=== PATIENT | female | born 1995 | race Caucasian/White ===

== ENCOUNTER 2017-12-03 14:09 | Outpatient (CLI) | payer BC, SELFPAY ==
[2017-12-03 14:20] VITALS: BMI 21.2
[2017-12-03 14:40] VITALS: BP 119/60; PULSE 102; RESP 18; TEMP 36.9
[2017-12-03 14:56] LABS: Basophils % 0.4 % (0.1-2.0); Eosinophils # 0.1 K/mm3 (0.0-0.4); Eosinophils % 1.2 % (0.1-12.0); Hematocrit 43.8 % (37.0-47.0); Hemoglobin 15.1 g/dL (12.2-16.2); Lymphocytes # 1.9 K/mm3 (0.7-4.5); Lymphocytes % 17.2 K/mm3 (10-50); Mean Corpuscular HGB Conc 34.4 g/dL (31.8-35.4); Mean Corpuscular Hemoglobin 31.7 pg (27.0-31.2); Mean Platelet Volume 7.2 fl (7.4-10.4); Monocytes # 0.5 K/mm3 (0.1-1.0); Monocytes % 4.4 % (1.7-9.3); Neutrophils # 8.5 K/mm3 (1.8-7.8); Neutrophils % 76.8 % (37.0-80.0); Platelet Count 301 K/mm3 (142-424); Red Blood Count 4.76 M/mm3 (4.20-5.40)
[2017-12-03 15:10] VITALS: BP 110/58; PULSE 89; RESP 18
[2017-12-03 15:25] LABS: Alanine Aminotransferase 15 U/L (12-78); Albumin Level 3.5 gm/dL (3.4-5.0); Albumin/Globulin Ratio 0.7 (1.1-1.8); Alkaline Phosphatase 90 U/L (46-116); Anion Gap 16.5 mEq/L (5-15); Aspartate Amino Transferase 17 U/L (15-37); Bilirubin,Total 0.4 mg/dL (0.2-1.0); Blood Urea Nitrogen 17 mg/dL (7-18); Calcium 9.9 mg/dL (8.5-10.1); Carbon Dioxide 26 mmol/L (21.0-32.0); Chloride 102 mmol/L (98-107); Creatinine Clearance Estimated 85 mL/min (0-300); Creatinine,Serum 0.94 mg/dL (0.55-1.02); Estimated Glomerular Filt Rate 74 ml/min (>60); GFR (African American) 89 ML/MIN (>60); Globulin 4.7 gm/dl (1.3-3.2); Glucose 73 mg/dL (74-106); Potassium 4.5 mmoL/L (3.5-5.1); Sodium 140 mmol/L (136-145); Total Protein,Serum 8.2 gm/dL (6.4-8.2)
[2017-12-03 15:40] VITALS: BP 109/46; PULSE 85; RESP 18
[2017-12-03 16:00] VITALS: BP 112/54; PULSE 85; RESP 18
== END 2017-12-03 16:10 | disposition home or self-care (01) ==
PROVIDERS: PCP Nurse Practitioner Family; Visit Provider Nurse Practitioner Family
DX: R11.2 Nausea with vomiting, unspecified (principal)
CPT/HCPCS: 80053; 85025; 96360; 96374

== ENCOUNTER → 2019-06-27 08:25 | Outpatient (POV) | payer BC, SELFPAY | PROVIDERS: Visit Provider Dermatology | DX: Z00.00 Encounter for general adult medical examination without abnormal findings (principal) ==

== ENCOUNTER → 2020-03-16 08:49 | Outpatient (CLI) | payer BC, SELFPAY | PROVIDERS: PCP Nurse Practitioner Family; Visit Provider Nurse Practitioner Family | DX: R19.7 Diarrhea, unspecified (principal) ==

== ENCOUNTER → 2020-03-16 09:10 | Outpatient (CLI) | payer BC, SELFPAY ==
[2020-03-16 09:14] LABS: Adenovirus F 40/41, stool Not Detected (NotDetected); Astrovirus Not Detected (NotDetected); Campylobacter Not Detected (NotDetected); Cryptosporidium Not Detected (NotDetected); Cyclospora Cayetanesis Not Detected (NotDetected); Entamoeba histolytica Not Detected (NotDetected); Enteroaggregative E coli Not Detected (NotDetected); Enteropathogenic E coli Not Detected (NotDetected); Enterotoxigenic E coli Not Detected (NotDetected); Giardia lamblia Not Detected (NotDetected); Norovirus Not Detected (NotDetected); Plesimonas Shigalloides, PCR Not Detected (NotDetected); Rotavirus A Not Detected (NotDetected); Salmonella, PCR Not Detected (NotDetected); Sapovirus Not Detected (NotDetected); Shiga-like toxin E coli Not Detected (NotDetected); Shigella Enterovasive E coli Not Detected (NotDetected); Vibrio Cholerae Not Detected (NotDetected); Vibrio, PCR Not Detected (NotDetected); Yersinia Entercolitica, PCR Not Detected (NotDetected)
[2020-03-16 12:54] LABS: Clostridium Difficile A/B, PCR Detected (NotDetected)
[2020-03-17 17:29] LABS: H. pylori Breath Test Negative (Negative)
== END ==
PROVIDERS: Visit Provider Nurse Practitioner Family
DX: R19.7 Diarrhea, unspecified (principal); A04.72 Enterocolitis due to Clostridium difficile, not specified as recurrent
CPT/HCPCS: 83013; 87507

== ENCOUNTER → 2021-10-13 14:37 | Outpatient (CLI) | payer OTHER, SELFPAY ==
[2021-10-15 07:12] LABS: HIV Screen 4th Generation wRfx Non Reactive (Non Reactive); HSV 2 IgG, Type Spec <0.91 index (0.00-0.90); Hep A Ab, IgM Negative (Negative); Hepatitis B Core Antibody IgM Negative (Negative); Hepatitis B Surface Antigen Negative (Negative); Hepatitis C Antibody <0.1 s/co ratio (0.0-0.9)
[2021-10-15 09:14] LABS: Rapid Plasma Reagin Ab Titer Non Reactive (NonRea<1:1)
[2021-10-15 21:19] LABS: Neisseria gonorrhoeae, NAA Negative (Negative)
== END ==
PROVIDERS: Visit Provider Nurse Practitioner Obstetrics & Gynecology
DX: N89.8 Other specified noninflammatory disorders of vagina (principal); N94.9 Unspecified condition associated with female genital organs and menstrual cycle; Z72.51 High risk heterosexual behavior
CPT/HCPCS: 36415; 80074; 86592; 86695; 86703; 86790; 87491; 87591; G0432

== ENCOUNTER → 2021-10-13 16:15 | Outpatient (CLI) | payer OTHER, SELFPAY | PROVIDERS: Visit Provider Nurse Practitioner Obstetrics & Gynecology | DX: F41.9 Anxiety disorder, unspecified (principal) ==

== ENCOUNTER → 2021-10-28 22:29 | Outpatient (CLI) | payer OTHER, SELFPAY ==
--- NOTE | 2021-10-28 22:32 | CT_ITS ---
PROCEDURE INFORMATION: Exam: CT Head Without Contrast Exam date and time: 10/28/2021 10:32 PM Age: 26 years old Clinical indication: Pain; Headache not specified; Additional info: Head pain TECHNIQUE: Imaging protocol: Computed tomography of the head without contrast. Radiation optimization: All CT scans at this facility use at least one of these dose optimization techniques: automated exposure control; mA and/or kV adjustment per patient size (includes targeted exams where dose is matched to clinical indication); or iterative reconstruction. COMPARISON: No relevant prior studies available. FINDINGS: Brain: Normal. No hemorrhage. Unremarkable white matter. No mass effect. Cerebral ventricles: No ventriculomegaly. Paranasal sinuses: Visualized sinuses are unremarkable. No fluid levels. Mastoid air cells: Visualized mastoid air cells are well aerated. Bones/joints: Unremarkable. No acute fracture. Soft tissues: Unremarkable. IMPRESSION: No acute intracranial abnormality.
== END ==
PROVIDERS: PCP Nurse Practitioner Family; Visit Provider Nurse Practitioner Family
DX: R51.9 Headache, unspecified (principal)
CPT/HCPCS: 70450

== ENCOUNTER 2024-07-10 13:50 | Outpatient (CLI) | payer OTHER, SELFPAY ==
[2024-07-10 15:42] LABS: HCG,Quantitative 6166 mIU/ml (0-5.42)
[2024-07-11 09:16] LABS: Progesterone 22.9 ng/mL (.)
== END 2024-07-10 23:59 | disposition home or self-care (01) ==
LOC: LAB 13:52
PROVIDERS: PCP Nurse Practitioner Family; Visit Provider Obstetrics & Gynecology
DX: Z32.00 Encounter for pregnancy test, result unknown (principal)
CPT/HCPCS: 36415; 84144; 84702

== ENCOUNTER 2024-08-01 13:43 | Outpatient (CLI) | payer OTHER, SELFPAY ==
--- NOTE | 2024-08-01 13:44 | US_ITS ---
PROCEDURE: US OB <= 14 WEEKS FETUS CLINICAL INDICATION: spotting during /dates COMPARISON: No exams were available for comparison FINDINGS: Transvaginal sonographic images of the pelvis were obtained. From her last menstrual period she is 7weeks 5days. An intrauterine gestational sac is present with a pole with a crown-rump length of 1.71cm This correlates to a gestational age of 8weeks 2days. ABILIO 03/11/2025 from this ultrasound heart tones are present with an FHR of 165bpm. Yolk sac is noted. The yolk sac measures 4.3mm. There is a small collection of fluid anterior to the chorion that may represent subchorionic hemorrhage. The right ovary is seen and appears normal. The left ovary is seen and appears normal. There is no fluid in the cul-de-sac. IMPRESSION: 1. Embryo within the uterine cavity with heart activity seen. 2. There is a small fluid collection anterior to the chorion that may represent a subchorionic hemorrhage. 3. Embryo measures 8 weeks and 2 days and ABILIO will be 03/11/2025 from this ultrasound. 4. Both ovaries are seen and appear normal. 5. No fluid in the cul-de-sac. Dictated by: Kana King MD 08/02/2024 12:45 Kana King MD in [facility] 08/02/2024 12:45
== END 2024-08-01 23:59 | disposition home or self-care (01) ==
LOC: RAD 13:44
PROVIDERS: PCP Nurse Practitioner Family; Visit Provider Obstetrics & Gynecology
DX: Z34.90 Encounter for supervision of normal pregnancy, unspecified, unspecified trimester (principal)
CPT/HCPCS: 76801

== ENCOUNTER 2024-08-11 12:05 | Outpatient (CLI) | payer OTHER, SELFPAY ==
[2024-08-11 12:53] LABS: Basophils # 0.1 K/mm3 (0-0.2); Basophils % 0.5 % (0.1-2.0); Eosinophils # 0.2 K/mm3 (0.0-0.4); Eosinophils % 1.6 % (0.1-12.0); Hematocrit 39.5 % (37.0-47.0); Hemoglobin 13.5 g/dL (12.2-16.2); Lymphocytes # 1.9 K/mm3 (0.7-4.5); Lymphocytes % 17.8 % (10-50); Mean Corpuscular HGB Conc 34.2 g/dL (31.8-35.4); Mean Corpuscular Hemoglobin 31.5 pg (27.0-31.2); Mean Corpuscular Volume 92.3 fl (81-99); Mean Platelet Volume 9.2 fl (7.4-10.4); Monocytes # 0.6 K/mm3 (0.1-1.0); Monocytes % 5.9 % (1.7-9.3); Neutrophils # 8.1 K/mm3 (1.8-7.8); Neutrophils % 73.9 % (37.0-80.0); Platelet Count 332 K/mm3 (142-424); Red Blood Count 4.28 M/mm3 (4.20-5.40); Red Cell Distribution Width 11.7 % (11.5-17.5); White Blood Count 10.9 K/mm3 (4.8-10.8)
[2024-08-11 14:32] LABS: HIV Combo NEGATIVE (Negative)
[2024-08-11 14:40] LABS: Hepatitis C Ab Qual. W/ RFX NEGATIVE (Negative)
[2024-08-11 14:51] LABS: RPR W/RFX Titers Nonreactive (Nonreactive)
[2024-08-12 07:13] LABS: Hepatitis B Surface Antigen Negative (Negative)
[2024-08-12 08:12] LABS: Rubella Antibodies, IgG 1.24 index (Immune >0.99)
[2024-08-14 06:09] LABS: Neisseria gonorrhoeae, NAA Negative (Negative)
== END 2024-08-11 23:59 | disposition home or self-care (01) ==
LOC: LAB 12:06
PROVIDERS: PCP Nurse Practitioner Family; Visit Provider Obstetrics & Gynecology
DX: Z34.81 Encounter for supervision of other normal pregnancy, first trimester (principal)
CPT/HCPCS: 36415; 85025; 86592; 86762; 86803; 86850; 87086; 87088; 87186; 87340; 87389; 87491; 87591

== ENCOUNTER 2024-10-27 08:56 | Outpatient (CLI) | payer OTHER, SELFPAY ==
--- NOTE | 2024-10-27 08:58 | US_ITS ---
PROCEDURE: US OB /MATERNAL DETAIL CLINICAL INDICATION: screening for malformation COMPARISON: US US OB <= 14 WEEKS FETUS from 08/01/2024 FINDINGS: Transabdominal sonographic images of the pelvis were obtained. From her established due date she is 20 weeks 1 day. Single viable intrauterine gestation. Cephalic position. Placenta: Posteriorplacenta grade 1. There is an average amount of fluid. The cervix appears satisfactory. Closed and measuring 4.36 cm in length. Complete survey performed and was unremarkable on the submitted images as in PACS. No discrete anomalies identified on survey imaging by technologist. Active fetus. Three-vessel cord with satisfactory umbilical cord insertion. 4- chamber heart noted. Situs, aortic arch, LVOT, RVOT, three-vessel view appear normal. Survey of brain & ventricles Unremarkable. Not well visualized due to position today. Face and neck survey unremarkable. Profile, nasion, lips and nose appeared normal. Diaphragm and chest views unremarkable. Abdomen: Both kidneys noted and unremarkable. Stomach and bladder noted and satisfactory. Spine: Survey of the spine satisfactory with no anomalies identified nor imaged. Cervical, thoracic, lower spine appear normal. Both arms and legs noted. Amniotic Fluid: Adequate. MVP 2.12 cm. Measurements: Average ultrasound age 20weeks 2days. Estimated due date by ultrasound age 0803/14/2025. Estimated weight 352g BPD = 20weeks 1day HC = 20weeks 0 days AC = 21weeks 1day FL = 19weeks 6days Growth Percentile= 61 Heart Rate = 140bpm Humerus = 19weeks 5days HC/AC is 1.09 FL/BPD is 0.68 FL/AC is 0.2 IMPRESSION: 1. Viable fetus in the cephalic presentation with posterior placenta grade 1. 2. The fluid is within normal limits with an MVP 2.12 cm. 3. The complete head anatomy was not well visualized due to position today. Suggest repeat scan in 2-3 weeks to look at the brain anatomy. 4. The rest of the anatomical scan appear normal. 5. biometry is consistent with the dates. Dictated by: Kana King MD 10/27/2024 16:57 Kana King MD in [facility] 10/27/2024 16:57
== END 2024-10-27 23:59 | disposition home or self-care (01) ==
LOC: RAD 08:56
PROVIDERS: PCP Nurse Practitioner Family; Visit Provider Obstetrics & Gynecology
DX: Z36.3 Encounter for antenatal screening for malformations (principal); Z3A.20 20 weeks gestation of pregnancy
CPT/HCPCS: 76811

== ENCOUNTER 2024-11-17 13:23 | Outpatient (CLI) | payer OTHER, SELFPAY ==
--- NOTE | 2024-11-17 13:45 | US_ITS ---
PROCEDURE: US OB FOLLOW UP CLINICAL INDICATION: f/u for extra views after anatomy scan COMPARISON: US US OB <= 14 WEEKS FETUS from 08/01/2024 US US OB /MATERNAL DETAIL from 10/27/2024 FINDINGS: Transabdominal sonographic images of the pelvis were obtained. The following parameters are obtained: From her established due date she is 23weeks 1day Viable fetus in the cephalic presentation with a posterior placenta grade 1. The cervix measures 2.84 cm heart rate: 150bpm bpm. BPD: 22weeks 5days HC: 23weeks 3days AC: 22weeks 4days FL: 23weeks 3days HC/AC: 1.21 FL/BPD: 0.75 FL/AC: 0.23 Growth percentile: Amniotic fluid: Appears normal. No obvious anomalies evident. Stomach, bladder, kidneys, three-vessel cord, four chamber heart appear normal. head: Thalamus, choroid plexus, cerebellum, cisterna magna appear normal. IMPRESSION: 1. Viable fetus in the cephalic presentation with a posterior placenta grade 1. 2. Subjectively the fluid is within normal limits. 3. The head anatomy today appears normal. 4. The rest of the limited anatomical scan appears normal. 5. biometry is consistent with the dates. Dictated by: Kana King MD 11/17/2024 20:34 Kana King MD in [facility] 11/17/2024 20:34
== END 2024-11-17 23:59 | disposition home or self-care (01) ==
LOC: RAD 13:24
PROVIDERS: PCP Nurse Practitioner Family; Visit Provider Obstetrics & Gynecology
DX: Z36.3 Encounter for antenatal screening for malformations (principal); Z3A.23 23 weeks gestation of pregnancy
CPT/HCPCS: 76816

== ENCOUNTER 2024-12-18 09:31 | Outpatient (CLI) | payer OTHER, SELFPAY ==
[2024-12-18 11:11] LABS: Basophils # 0.1 K/mm3 (0-0.2); Basophils % 0.6 % (0.1-2.0); Eosinophils # 0.2 Kmm3 (0.0-0.4); Eosinophils % 1.7 % (0.1-12.0); Hematocrit 37.4 % (37.0-47.0); Hemoglobin 12.6 g/dL (12.2-16.2); Immature Granulocytes # 0.04 10^3uL; Immature Granulocytes % 0.5 %; Lymphocytes # 1.3 K/mm3 (0.7-4.5); Lymphocytes % 15.3 % (10-50); Mean Corpuscular HGB Conc 33.7 g/dL (31.8-35.4); Mean Corpuscular Hemoglobin 31.7 pg (27.0-31.2); Mean Platelet Volume 9.1 fl (7.4-10.4); Monocytes # 0.6 K/mm3 (0.1-1.0); Monocytes % 7.3 % (1.7-9.3); Neutrophils # 6.5 K/mm3 (1.8-7.8); Neutrophils % 74.6 % (37.0-80.0); Nucleated Red Blood Cells # 0 10^3/uL; Nucleated Red Blood Cells % 0 %; Platelet Count 307 K/mm3 (142-424); Red Blood Count 3.98 M/mm3 (4.20-5.40); Red Cell Distribution Width 11.9 % (11.5-17.5); Red Cell Distribution Width-SD 40.7 fL; White Blood Count 8.7 K/mm3 (4.8-10.8)
[2024-12-18 11:22] LABS: Glucose 1 Hour 109 mg/dL (74-100)
[2024-12-18 16:35] LABS: RPR W/RFX Titers Nonreactive (Nonreactive)
== END 2024-12-18 23:59 | disposition home or self-care (01) ==
LOC: LAB 09:32
PROVIDERS: PCP Nurse Practitioner Family; Visit Provider Obstetrics & Gynecology
DX: Z34.92 Encounter for supervision of normal pregnancy, unspecified, second trimester (principal); Z3A.27 27 weeks gestation of pregnancy
CPT/HCPCS: 36415; 82947; 85025; 86592

== ENCOUNTER 2025-01-17 13:18 | Outpatient (CLI) | payer OTHER, SELFPAY ==
--- OUTSIDE RECORDS SUMMARY | 2025-01-17 13:24 | XMS_ITS | Clinical Summary ---
Author Organization [facility] Address [address] [place] [address] Care Team Providers Care Apprentice Cosmetologist Name Role Phone Pcp, No Primary Care Provider Unavailabl e Allergies Active Allergy Reactions Criticality Noted Date Comments Penicillins Rash Low 07/24/2020 Medications buPROPion (Wellbutrin) 75 MG tablet 11/20/2021 Active Active Problems Problem Noted Date Diagnosed Date Pelvic and perineal pain 11/20/2021 Overview (11/20/2021): Normal pelvic exam today Recommend soak and seals. If symptoms do not improve can try vaginal estrogen or steroids. Counseled on vaginal dryness or dermatitis with changes in detergent, clothing or pads. Assessment & Plan (11/20/2021 3:02 PM EDT): Normal pelvic exam today, most of symptoms seem to be external Recommend soak and seals. If symptoms do not improve can try vaginal estrogen or steroids. Counseled on vaginal dryness or dermatitis with changes in detergent, clothing or pads. Resolved Problems Problem Noted Date Diagnosed Date Resolved Date Vaginal dryness 11/20/2021 11/20/2021 Overview (11/20/2021): She reports intermittent numbness from rectum to bilateral LEs in the setting of pelvic exam WNL. Recommend vaginal lubrication and follow-up if sx persist and can discuss topical estrogen or steroids for vaginal dermatitis Counseled on vaginal dryness or dermatitis with changes in detergent, clothing or pads. Immunizations Immunization Administration Dates Next Due DTP-Hib-Hep B 10/04/1995 DTaP 10/03/1998 MMR 10/03/1998,10/04/1995 OPV Bivalent - Non-US 10/03/1998 Social History Tobacco Use Types Packs/Day Years Used Date Smoking Tobacco: Never Smokeless Tobacco: Never Alcohol Use Standard Drinks/Week Comments Never 0 (1 standard drink = 0.6 oz pur e alcohol) Comments Unknown Sex and Gender Information Value Date Recorded Sex Assigned at Not on file Legal Sex Female 1:42 PM EDT Gender Identity Not on file Sexual Orientation Not on file Last Filed Vital Signs Vital Sign Reading Time Taken Comments Blood Pressure 158/110 11/20/2021 10:10 AM EDT Pulse 120 11/20/2021 10:10 AM EDT Temperature - - Respiratory Rate - - Oxygen Saturation - - Inhaled Oxygen Concentration - - Weight 68.6 kg (151 lb 4.8 oz) 11/20/2021 10:10 AM EDT Height 165.1 cm (5' 5 ) 11/20/2021 10:10 AM EDT Body Mass Index 25.18 11/20/2021 10:10 AM EDT Plan of Treatment Health Maintenance Due Date Last Done Comments [facility]-Depression Screening 1994 [facility]-Infant/Child/Adol SDOH Screenings 1994 [facility]-Hepatitis B Vaccines (2 of 3 - 3-dose series) 11/01/1995 10/04/1995 [facility]-Varicella Vaccines (1 of 2 - 13+ 2-dose series) 2007 HPV Vaccines (1 - 3-dose series) 2009 [facility]- SDOH Screenings 2012 [facility]-Adult SDOH Screenings 2012 [facility]-DTaP,Tdap,and Td Vaccines (3 - Tdap) 2013 10/03/1998, 10/04/1995 [facility]-Pap Smear 2015 [id number] Vaccine (3 - 2023- season) 2024 08/04/2021, 2021 [facility]-Cervical Cancer Screening 2024 [facility]-HPV/Cotest 2024 [facility]-Influenza Vaccine (Season Ended) 2025 [facility]-Zoster Vaccines (1 of 2) 2044 [facility]-HIB Vaccines Completed 10/04/1995 [facility]-IPV Vaccines Aged Out 10/03/1998 No longer e ligible based on patient's age to complete this topic [facility]-Hepatitis A Vaccines Aged Out No longer eligible based on patient's age to complete this topic [facility]-Pneumococcal Vaccine: Pediatrics (0 to 5 Years) and At-Risk Patients (6 to 49 Years) Aged Out No longer eligible b ased on patient's age to complete this topic [facility]-Rotavirus Vaccines Aged Out No lo nger eligible based on patient's age to complete this topic Insurance Care Teams Apprentice Cosmetologist Relationship Specialty Start Date End Date [address] [place] [address] PCP - General Family Medicine 11/20/21
--- NOTE | 2025-01-17 13:45 | US_ITS ---
PROCEDURE: US OB BIOPHYSICAL PROFILE CLINICAL INDICATION: SGA COMPARISON: US US OB <= 14 WEEKS FETUS from 08/01/2024 US US OB /MATERNAL DETAIL from 10/27/2024 US US OB FOLLOW UP from 11/17/2024 FINDINGS: Transabdominal sonographic images of the uterus were obtained. From her established due date she is 31weeks 6days. The following parameters are obtained: Viable Fetus in the cephalic presentation with a posterior placenta grade 2. Average ultrasound age is 30weeks 5days Estimated weight 1,549g Cervix measures 3.35 cm Average ultrasound age 30 weeks 5 days Estimated weight 1549 grams, 3 lb 7 oz Measurements: heart Rate = 158bpm BPD = 30weeks 6days, 15 percentile HC = 31weeks 3days, 7 percentile AC = 30weeks 6days 18 percentile FL = 29weeks 2days, <2 percentile HC/AC is 1.07 FL/BPD is 0.72 FL/AC is 0.21 6 percentile Amniotic fluid index: 11.94cm, MVP 4.0 cm Qualitative AFV:2 Breathing movements: 2 Gross Body Movements: 2 Tone: 2 Biophysical profile score: 8 Doppler evaluation of the umbilical artery: SD ratio: 2.36-2.95-normal Resistive index: 0.66 No obvious anomalies evident.Kidneys, profile, stomach, bladder, four-chamber heart, three-vessel cord appear normal. IMPRESSION: 1. Viable fetus in the cephalic presentation with a posterior placenta grade 2. 2. The fluid is within normal limits with an amniotic fluid index 11.94, MVP 4.0 cm. 3. Biophysical profile is 8/8 with good breathing movement and movement seen. 4. SD ratio is normal 2.36-2.95. 5. Fetus is currently small for gestational age measuring 6th percentile. The abdominal circumference however is 18th percentile. 6. Limited anatomical scan appears normal. Dictated by: Kana King MD 01/17/2025 15:05 Kana King MD in [facility] 01/17/2025 15:05
== END 2025-01-17 23:59 | disposition home or self-care (01) ==
LOC: RAD 13:18
PROVIDERS: PCP Nurse Practitioner Family; Visit Provider Obstetrics & Gynecology
DX: O36.5930 Maternal care for other known or suspected poor fetal growth, third trimester, not applicable or unspecified (principal); Z3A.31 31 weeks gestation of pregnancy
CPT/HCPCS: 76816; 76819; 76820

== ENCOUNTER 2025-01-23 13:16 | Outpatient (CLI) | payer OTHER, SELFPAY ==
--- OUTSIDE RECORDS SUMMARY | 2025-01-23 13:21 | XMS_ITS | Clinical Summary ---
Author Organization [facility] Address [address] [place] [address] Care Team Providers Care Deputy Coroner Investigator Name Role Phone Pcp, No Primary Care [...] Tdap) 2013 10/03/1998, 10/04/1995 [facility]-Pap Smear 2015 [id number] Vaccine (3 - 2023- season) 2024 08/04/2021, [...] to complete this topic Insurance Care Teams Deputy Coroner Investigator Relationship Specialty Start Date End Date [address] [address] PCP - General Family Medicine 11/20/21
--- NOTE | 2025-01-23 13:45 | US_ITS ---
PROCEDURE: US OB BIOPHYSICAL PROFILE CLINICAL INDICATION: BPP for SGA COMPARISON: US US OB <= 14 WEEKS FETUS from 08/01/2024 US US OB /MATERNAL DETAIL from 10/27/2024 US US OB FOLLOW UP from 11/17/2024 US US OB BIOPHYSICAL PROFILE from 01/17/2025 FINDINGS: Transabdominal sonographic images of the uterus were obtained. From her established due date she is 32weeks 5days. The following parameters are obtained: Viable Fetus in the cephalic presentation with a posterior placenta grade 2. The cervix measures 3.05 cm Measurements: heart Rate = 147bpm Amniotic fluid index: 14.64cm, MVP 4.11 cm Qualitative AFV:2 Breathing movements: 2 Gross Body Movements: 2 Tone: 2 Biophysical profile score: 8 No obvious anomalies evident.Kidneys, profile, stomach, bladder, four-chamber heart, three-vessel cord appear normal. IMPRESSION: 1. Viable fetus in the cephalic presentation with a posterior placenta grade 2. 2. The fluid is within normal limits with an amniotic fluid index 14.64 cm, MVP 4.11 cm 3. Biophysical profile is 8/8 with good breathing movement and movement seen. 4. Limited anatomical scan appears normal. Dictated by: Kana King MD 01/24/2025 01:23 Kana King MD in [facility] 01/24/2025 01:23
== END 2025-01-23 23:59 | disposition home or self-care (01) ==
LOC: RAD 13:17
PROVIDERS: PCP Nurse Practitioner Family; Visit Provider Obstetrics & Gynecology
DX: O36.5930 Maternal care for other known or suspected poor fetal growth, third trimester, not applicable or unspecified (principal); Z3A.32 32 weeks gestation of pregnancy
CPT/HCPCS: 76819

== ENCOUNTER 2025-01-29 08:36 | Outpatient (CLI) | payer OTHER, SELFPAY ==
--- OUTSIDE RECORDS SUMMARY | 2025-01-29 08:38 | XMS_ITS | Clinical Summary ---
Author Organization [facility] Address [address] [place] [address] Care Team Providers Care Tire Finisher Name Role Phone Pcp, No Primary Care [...] Tdap) 2013 10/03/1998, 10/04/1995 [facility]-Pap Smear 2015 [id number] Vaccine (3 - 2023- season) 2024 08/04/2021, [...] to complete this topic Insurance Care Teams Tire Finisher Relationship Specialty Start Date End Date [address] [address] PCP - General Family Medicine 11/20/21
[2025-01-29 08:40] VITALS: BMI 28.6
[2025-01-29 08:54] VITALS: BP 145/83; PULSE 75; RESP 16; TEMP 37.1; O2SAT 98; BMI 28.6
[2025-01-29 09:17] VITALS: BP 136/86
== END 2025-01-29 09:19 | disposition home or self-care (01) ==
LOC: OBOUT 08:37 → OB 08:38
PROVIDERS: PCP Nurse Practitioner Family; Visit Provider Obstetrics & Gynecology
DX: O36.5930 Maternal care for other known or suspected poor fetal growth, third trimester, not applicable or unspecified (principal); Z3A.33 33 weeks gestation of pregnancy
CPT/HCPCS: 59025

== ENCOUNTER 2025-02-03 09:50 | Outpatient (CLI) | payer OTHER, SELFPAY ==
--- OUTSIDE RECORDS SUMMARY | 2025-02-03 09:53 | XMS_ITS | Clinical Summary ---
Author Organization [facility] Address [address] [place] [address] Care Team Providers Care Marine Services Technician Name Role Phone Pcp, No Primary Care [...] Date Last Done Comments [facility]-Depression Screening 1994 [facility]-/Child/Adol SDOH Screenings 1994 [facility]-Hepatitis B Vaccines (2 of 3 - 3-dose series) 11/01/1995 10/04/1995 [facility]-Varicella Vaccines (1 of 2 - 13+ 2-dose series) 2007 HPV Vaccines (1 - 3-dose series) 2009 [facility]- SDOH Screenings 2012 [facility]-Adult SDOH Screenings 2012 [facility]-DTaP,Tdap,and Td Vaccines (3 - Tdap) 2013 10/03/1998, 10/04/1995 [facility]-Pap Smear 2015 [facility]-PWVSE-21 Vaccine (3 - 2023- season) 2024 08/04/2021, 2021 [facility]-Cervical Cancer Screening 2024 [facility]-HPV/Cotest 2024 [facility]-Influenza Vaccine (#1) 2025 [facility]-Zoster Vaccines (1 of 2) 2044 [...] to complete this topic Insurance Care Teams Marine Services Technician Relationship Specialty Start Date End Date [address] [place] [address] PCP - General Family Medicine 11/20/21
[2025-02-03 10:05] VITALS: BP 153/78; PULSE 69; RESP 18; TEMP 36.4; O2SAT 97; BMI 28.8
== END 2025-02-03 10:43 | disposition home or self-care (01) ==
LOC: OBOUT 09:52 → OB 09:53
PROVIDERS: PCP Nurse Practitioner Family
DX: Z34.03 Encounter for supervision of normal first pregnancy, third trimester (principal); Z3A.34 34 weeks gestation of pregnancy
CPT/HCPCS: 59025; 99212; G0463

== ENCOUNTER 2025-02-09 13:32 | Outpatient (CLI) | payer OTHER, SELFPAY ==
--- OUTSIDE RECORDS SUMMARY | 2025-02-09 13:35 | XMS_ITS | Clinical Summary ---
Author Organization [facility] Address [address] [place] [address] Care Team Providers Care Supervisor Marble Name Role Phone Pcp, No Primary Care [...] Tdap) 2013 10/03/1998, 10/04/1995 [facility]-Pap Smear 2015 [facility]-SNGVA-35 Vaccine (3 - 2023- season) 2024 08/04/2021, [...] to complete this topic Insurance Care Teams Supervisor Marble Relationship Specialty Start Date End Date [address] [place] [address] PCP - General Family Medicine 11/20/21
--- NOTE | 2025-02-09 13:45 | US_ITS ---
PROCEDURE: US OB BIOPHYSICAL PROFILE CLINICAL INDICATION: Needs for Asymmetric IUGR and SGA COMPARISON: US US OB <= 14 WEEKS FETUS from 08/01/2024 US US OB /MATERNAL DETAIL from 10/27/2024 US OB FOLLOW UP from 11/17/2024 US OB BIOPHYSICAL PROFILE from 01/17/2025 US OB BIOPHYSICAL PROFILE from 01/23/2025 FINDINGS: Transabdominal sonographic images of the uterus were obtained. From her established due date she is 35 weeks 1 day The following parameters are obtained: Viable Fetus in the cephalic presentation with a posterior placenta grade 2. Cervix measures 2.65 cm Measurements: heart Rate = 135bpm Amniotic fluid index: 10.81cm, MVP 4.25 cm Qualitative AFV:2 Breathing movements: 2 Gross Body Movements: 2 Tone: 2 Biophysical profile score: 8 No obvious anomalies evident.Kidneys, bladder, stomach, four-chamber heart, three-vessel cord appear normal. IMPRESSION: 1. Viable fetus in the cephalic presentation with a posterior placenta grade 2. 2. The fluid is within normal limits with an an amniotic fluid index 10.81 cm, MVP 4.25 cm. 3. Biophysical profile is 8/8 with good breathing movement and movement seen. 4. Limited anatomical scan appears normal. Dictated by: Kana King MD 02/10/2025 08:42 Kana King MD in OV 02/10/2025 08:42
== END 2025-02-09 23:59 | disposition home or self-care (01) ==
LOC: RAD 13:32
PROVIDERS: PCP Nurse Practitioner Family; Visit Provider Obstetrics & Gynecology
DX: O36.5930 Maternal care for other known or suspected poor fetal growth, third trimester, not applicable or unspecified (principal); Z3A.35 35 weeks gestation of pregnancy
CPT/HCPCS: 76819; 86403

== ENCOUNTER 2025-02-09 15:27 | Outpatient (CLI) | payer OTHER, SELFPAY ==
--- OUTSIDE RECORDS SUMMARY | 2025-02-09 15:29 | XMS_ITS | Clinical Summary ---
Author Organization [facility] Address [address] [place] [address] Care Team Providers Care Crinkling Machine Operator Name Role Phone Pcp, No Primary Care [...] Tdap) 2013 10/03/1998, 10/04/1995 UKY-Pap Smear 2015 [id number] Vaccine (3 - 2023- season) 2024 08/04/2021, [...] to complete this topic Insurance Care Teams Crinkling Machine Operator Relationship Specialty Start Date End Date Crystal [place] [address] PCP - General Family Medicine 11/20/21
[2025-02-09 15:47] LABS: Hematocrit 36.1 % (37.0-47.0); Hemoglobin 12.2 g/dL (12.2-16.2); Immature Granulocytes % 0.3 %; Mean Corpuscular HGB Conc 33.8 g/dL (31.8-35.4); Mean Corpuscular Hemoglobin 30.9 pg (27.0-31.2); Mean Corpuscular Volume 91.4 fl (81-99); Nucleated Red Blood Cells % 0 %; Platelet Count 294 K/mm3 (142-424); Red Blood Count 3.95 M/mm3 (4.20-5.40); Red Cell Distribution Width-SD 39.8 fL; White Blood Count 8.7 K/mm3 (4.8-10.8)
[2025-02-09 16:21] LABS: Alanine Aminotransferase 16 U/L (12-78); Albumin Level 3.2 g/dl (3.5-5.0); Albumin/Globulin Ratio 1.2 (1.1-1.8); Alkaline Phosphatase 146 U/L (38-126); Anion Gap 12.3 mEq/L (5-15); Aspartate Amino Transferase 25 U/L (14-36); Bilirubin,Total 0.3 mg/dl (0.2-1.3); Blood Urea Nitrogen 19 mg/dl (7-17); Calcium 9.4 mg/dl (8.4-10.2); Carbon Dioxide 25 mmol/L (22.0-30.0); Chloride 102 mmol/L (98-107); Creatinine,Serum 0.80 mg/dl (0.52-1.04); Estimated Glomerular Filt Rate 84 ml/min (>60); GFR (African American) 102 ML/MIN (>60); Globulin 2.6 g/dL (1.3-3.2); Glucose 90 mg/dl (74-100); Potassium 4.3 mmoL/L (3.5-5.1); Sodium 135 mmol/L (136-145); Total Protein,Serum 5.8 g/dl (6.3-8.2); Uric Acid 5.0 mg/dl (2.5-6.2)
== END 2025-02-09 23:59 | disposition home or self-care (01) ==
LOC: LAB 15:27
PROVIDERS: PCP Nurse Practitioner Family; Visit Provider Obstetrics & Gynecology
DX: O13.9 Gestational [pregnancy-induced] hypertension without significant proteinuria, unspecified trimester (principal); O36.5990 Maternal care for other known or suspected poor fetal growth, unspecified trimester, not applicable or unspecified
CPT/HCPCS: 36415; 80053; 82570; 84156; 84550; 85025

== ENCOUNTER 2025-02-15 08:30 | Outpatient (CLI) | payer OTHER, SELFPAY ==
--- OUTSIDE RECORDS SUMMARY | 2025-02-15 08:31 | XMS_ITS | Clinical Summary ---
Author Organization [facility] Address [address] [place] [address] Care Team Providers Care Bookkeepers Supervisor Name Role Phone Pcp, No Primary Care [...] Tdap) 2013 10/03/1998, 10/04/1995 UKY-Pap Smear 2015 [id number] Vaccine (3 - 2023- season) 2024 08/04/2021, [...] to complete this topic Insurance Care Teams Bookkeepers Supervisor Relationship Specialty Start Date End Date [place] [address] PCP - General Family Medicine 11/20/21
--- NOTE | 2025-02-15 08:45 | US_ITS ---
PROCEDURE: US OB BIOPHYSICAL PROFILE CLINICAL INDICATION: Needs for Asymmetric IUGR and SGA COMPARISON: US US OB /MATERNAL DETAIL from 10/27/2024 US US OB FOLLOW UP from 11/17/2024 US US OB BIOPHYSICAL PROFILE from 01/17/2025 US OB BIOPHYSICAL PROFILE from 01/23/2025 US OB BIOPHYSICAL PROFILE from 02/09/2025 FINDINGS: Transabdominal sonographic images of the uterus were obtained. From her established due date she is 36weeks 0 days. The following parameters are obtained: Viable Fetus in the cephalic presentation with a posterior placenta grade 2. Average ultrasound age is 34weeks 0 days Estimated weight 2,181g, 4 lb 13 oz Measurements: heart Rate = 149bpm BPD = 34weeks 6days, 24 percentile OFD = 31weeks 0 days, <10 percentile HC = 34weeks 6days, 5 percentile AC = 33weeks 1day, <2 percentile FL = 33weeks 1day, 2 percentile HC/AC is 1.07 Cephalic Index is 0.86 FL/BPD is 0.74 FL/AC is 0.22 4 percentile Amniotic fluid index: 11.34cm, MVP 3.80 cm Qualitative AFV:2 Breathing movements: 2 Gross Body Movements: 2 Tone: 2 Biophysical profile score: 8 Doppler evaluation of the umbilical artery: SD ratio: 2.54-3.30 Resistive index: 0.61 No obvious anomalies evident.Kidneys, profile, bladder, stomach, four-chamber heart, three-vessel cord appear normal. IMPRESSION: 1. Viable fetus in the cephalic presentation with a posterior placenta grade 2. 2. The fluid is within normal limits with an amniotic fluid index 11.34 cm, MVP 3.80 cm. 3. The fetus continues to show asymmetric growth restriction currently 4th percentile with the abdominal circumference 3 weeks behind. 4. Biophysical profile is 8/8 with good breathing movement and movement seen. 5. SD ratio is normal 2.54-3.30. Dictated by: Kana King MD 02/15/2025 11:56 Kana King MD in OV 02/15/2025 11:56
== END 2025-02-15 23:59 | disposition home or self-care (01) ==
LOC: RAD 08:30
PROVIDERS: PCP Nurse Practitioner Family; Visit Provider Obstetrics & Gynecology
DX: O36.5930 Maternal care for other known or suspected poor fetal growth, third trimester, not applicable or unspecified (principal); Z3A.36 36 weeks gestation of pregnancy
CPT/HCPCS: 76816; 76819; 76820

== ENCOUNTER 2025-02-15 13:13 | Outpatient (CLI) | payer OTHER, SELFPAY ==
--- OUTSIDE RECORDS SUMMARY | 2025-02-15 13:22 | XMS_ITS | Clinical Summary ---
Author Organization [facility] Address [address] [place] [address] Care Team Providers Care Assistant County Attorney Name Role Phone Pcp, No Primary Care [...] Tdap) 2013 10/03/1998, 10/04/1995 UKY-Pap Smear 2015 [id number] Vaccine (3 - 2023- season) 2024 08/04/2021, [...] to complete this topic Insurance Care Teams Assistant County Attorney Relationship Specialty Start Date End Date Crystal [place] [address] PCP - General Family Medicine 11/20/21
[2025-02-15 13:29] LABS: Hematocrit 36.9 % (37.0-47.0); Hemoglobin 12.6 g/dL (12.2-16.2); Immature Granulocytes % 0.1 %; Mean Corpuscular HGB Conc 34.1 g/dL (31.8-35.4); Mean Corpuscular Hemoglobin 31.5 pg (27.0-31.2); Mean Corpuscular Volume 92.3 fl (81-99); Nucleated Red Blood Cells % 0 %; Platelet Count 285 K/mm3 (142-424); Red Blood Count 4.00 M/mm3 (4.20-5.40); Red Cell Distribution Width-SD 40.9 fL; White Blood Count 7.8 K/mm3 (4.8-10.8)
[2025-02-15 15:40] LABS: Alanine Aminotransferase 13 U/L (12-78); Albumin Level 3.1 g/dl (3.5-5.0); Albumin/Globulin Ratio 1.1 (1.1-1.8); Alkaline Phosphatase 159 U/L (38-126); Anion Gap 13.2 mEq/L (5-15); Aspartate Amino Transferase 26 U/L (14-36); Bilirubin,Total 0.3 mg/dl (0.2-1.3); Blood Urea Nitrogen 15 mg/dl (7-17); Calcium 9.5 mg/dl (8.4-10.2); Carbon Dioxide 25 mmol/L (22.0-30.0); Chloride 100 mmol/L (98-107); Creatinine,Serum 0.80 mg/dl (0.52-1.04); Estimated Glomerular Filt Rate 84 ml/min (>60); GFR (African American) 102 ML/MIN (>60); Globulin 2.7 g/dL (1.3-3.2); Glucose 88 mg/dl (74-100); Potassium 4.2 mmoL/L (3.5-5.1); Sodium 134 mmol/L (136-145); Total Protein,Serum 5.8 g/dl (6.3-8.2); Uric Acid 4.9 mg/dl (2.5-6.2)
== END 2025-02-15 23:59 | disposition home or self-care (01) ==
LOC: LAB 13:14
PROVIDERS: PCP Nurse Practitioner Family; Visit Provider Obstetrics & Gynecology
DX: O13.9 Gestational [pregnancy-induced] hypertension without significant proteinuria, unspecified trimester (principal); O36.5990 Maternal care for other known or suspected poor fetal growth, unspecified trimester, not applicable or unspecified
CPT/HCPCS: 36415; 80053; 82570; 84156; 84550; 85025

== ENCOUNTER 2025-02-18 09:50 | Outpatient (CLI) | payer OTHER, SELFPAY ==
--- OUTSIDE RECORDS SUMMARY | 2025-02-01 10:37 | XMS_ITS | Encounter Summary ---
[facility] Address [address] [place] [address] Care Team Providers Care Food Sanitarian Name Role Phone Dorian Ramos APRN Primary Care Provider + [phone] Reason for Referral * Diagnostic Imaging (Routine) - Closed Specialty Diagnoses / Procedures Referred By iLon brantley Referred To Contact Radiology Diagnoses Maternal care for other known or suspected poor growth, third trimester, not applicable or unspecified , unspecified gestational age Procedures [facility] Diagnostic [place] Kimo Zuleta DO [address] [place] [address] [place] [address] Phone: tel: fax: [facility] US PER DIAG CTR [address] [place] [address] Phone: tel: Referral ID Status Reason Start Date Expiration Date Visits Re quested Visits Authorized [id number] Closed 01/18/2025 04/19/2026 1 1 Reason for Visit * Diagnostic Imaging (Routine) - Closed Specialty Diagnoses / Procedures Referred By Lion brantley Referred To Contact Radiology Diagnoses Maternal care for other known or suspected poor growth, third trimester, not applicable or unspecified , unspecified gestational age Procedures [facility] Diagnostic [place] Kimo Zuleta DO [address] [place] [address] [address] [place] [address] Phone: tel: fax: [facility] PER DIAG CTR [address] [place] [address] Phone: tel: Referral ID Status Reason Start Date Expiration Date Visits Re quested Visits Authorized [id number] Closed 01/18/2025 04/19/2026 1 1 Encounter Details Date Type Department Care Team (Latest Contact Info) Description 02/01/2025 10:37 AM EDT - 02/01/2025 11:59 PM EDT Hospital Encounter [facility] PER DIAG CTR [address] [place] [address] Kimo Zuleta, DO [address] [facility] [address] [facility] Maternal care for other known or [...] 12:03 PM EDT Kimo Fu RN * [place] Suicide Severity Rating Scale (Screener/Recent Self-Report) Question Answer Date of Assessment Author 6. Suicidal Behavior (Lifetime) No 12:03 PM EDT Kiom Fu RN documented as of this encounter Medications at Time of Discharge FLUoxetine (PROzac) 40 MG capsule Take 1 capsule by mouth Daily. Vit-Fe Fumarate-FA ( VITAMIN PO) Take 1 tablet by mouth Daily. documented as of this encounter Plan of Treatment Not on file documented as of this encounter Procedures Procedure Name Priority Date/Time Associated Diagnosis Comments [facility] Routine 02/01/2025 11:53 AM EDT Maternal care for other known or suspected poor growth, third trimester, not applicable or unspecified , unspecified gestational age documented in this encounter Results * [facility] (02/01/2025 11:53 AM EDT) Anatomical Region Laterality Modality Ultrasound 02/01/2025 11:1 1 AM EDT Narrative 02/01/2025 11:57 AM EDT PAT NAME: CAROLYN BORREGO MED REC#: [id number] DA: [id number] PAT GEND: F PAT TYPE: O EXAM HUANG: [id number] REF PHYS KIMO ZULETA Comparison Studies There [...] EFW (oz) 1 oz EFW by: Hadlock (KQU-SN-BU-FL) Extended Tibia 49.5 mm 29w 5d <1% Farzana Fibula 50.6 mm 30w 6d 21% Farzana Foot 64.4 mm 10% Chitty Radius 43.2 mm 30w 1d 26% Farzana Ulna 47.3 mm 30w 0d <1% Farzana Cav. septi pel. tr 9.0 mm Technician Helper Instrument 5.8 mm CM 4.6 mm 1% Nicolaides [...] normal IVC: normal 3-vessel view: Appears normal 8-dohrxk-atvcjrq view: Appears normal Rt lung: Appears normal [...] evaluation for growth and Doppler exam at [facility] in 2 weeks. Follow up appointment scheduled here in 4 weeks. Coding ====== Description: 68009-76 Detailed Ultrasound Description: 10292-46 BPP without NST Description: 62473-13 Doppler Umbilical Artery Unloader Operator: Lucy Pereyra RDMS Physician: Deric Biswas MD, FACOG Electronically signed by: Deric Biswas MD, FACOG at: 11:57 Procedure Note Troy Biswas MD - 02/01/2025 PAT NAME: CAROLYN BORREGO MED REC#: [id number] DA: [id number] PAT GEND: F PAT TYPE: O EXAM HUANG: [id number] REF PHYS KIMO ZULETA Comparison Studies There are no relevant prior studies to which this study is beingcompared Patient Status Outpatient Indication ======== Small for gestational age Maternal Assessment Yjrthz187 cm Height (ft)5 ft Height (in)4 in Oxbhfp56 kg Weight (lb)168 lb BMI28.96 kg/m Method ======= Transabdominal ultrasound examination. View: Adequate view ========= Riggins . Number of fetuses: 1 Dating ====== Method of dating:based on stated ABILIO GA by prior mzebxstfim93 w + 0 d ABILIO by prior assessment:03/15/2025 Ultrasound examination on:02/01/2025 GA by U/S based upon:AC, BPD, Femur, HC GA by U/S32 w + 6 d ABILIO by U/S:03/23/2025 Assigned:based on stated ABILIO, selected on 02/01/2025 Assigned GA34 w + 0 d Assigned ABILIO:03/15/2025 dikknj780 d Biometry Standard BPD84.5 mm 34w 0d 48% Hadlock KJA247.1 mm 33w 4d 42% Farzana HC309.4 mm 34w 4d 27% Hadlock Cerebellum tr48.6 mm 36w 1d 72% Hill AC268.7 mm 31w 0d 1% Hadlock Femur61.4 mm 31w 6d 4% Hadlock Cfmfizt95.7 mm 31w 6d 9% Farzana HC / AC1.15 EFW1,849 g 31w 3d 5% Hadlock EFW (lb)4 lb EFW (oz)1 oz EFW by:Hadlock (VJV-AR-EZ-FL) Extended Tibia49.5 mm 29w 5d <1% Farzana Vezylb54.6 mm 30w 6d 21% Farzana Foot64.4 mm 10% Chitty Sybjzj67.2 mm 30w 1d 26% Farzana Ulna47.3 mm 30w 0d <1% Farzana Cav. septi pel. tr9.0 mm Vp5.8 mm CM4.6 mm 1% Nicolaides Head / Face / Neck Cephalic index0.82 66% Nicolaides Extremities / Bony Struc FL / BPD0.73 FL / HC0.20 FL / AC0.23 Other Structures VJX446 bpm General Evaluation Cardiac activity present. FHR [...] view:Appears normal SVC:normal IVC:normal 3-vessel view:Appears normal 9-qpgzmw-ayxywol view:Appears normal Rt lung:Appears normal Lt lung:normal [...] Structures Uterus / Cervix Cervix:Visualized Approach:Transabdominal Cervical uqgpvc22.5 mm Ovaries / Tubes / Adnexa Rt [...] evaluation for growth and Doppler exam at [facility] in2 weeks. Follow up appointment scheduled here in 4 weeks. Coding ====== Description:59606-90 Detailed Ultrasound Description:34904-39 BPP without NST Description:10719-05 Doppler Umbilical Artery Unloader Operator: Lucy Pereyra RDMS Physician: Deric Biswas MD, FACOG Electronically signed by: Deric Biswas MD, FACOG at: 11:57 us Kimo Zuleta DO IMG US ORDERABLES Final Res ult documented in this encounter Visit Diagnoses Diagnosis Maternal care for other known or suspected poor growth, third trimester, not applicable or unspecified , unspecified gestational age documented in this encounter Care Teams Food Sanitarian Relationship Specialty Start Date End Date Dorian Ramos SHARI [address] [place] [address] PCP - General Family Medicine 07/24/20 documented as of this encounter
--- OUTSIDE RECORDS SUMMARY | 2025-02-01 11:00 | XMS_ITS | Encounter Summary ---
Author Organization [facility] Address [address] [place] [address] Care Team Providers Care Irrigator Gravity Flow Name Role Phone Dorian Ramos APRN Primary Care Provider + [phone] Reason for Referral * Diagnostic Imaging (Routine) - Authorized Specialty Diagnoses / Procedures Referred By Contac t Referred To Contact Radiology Diagnoses IUGR (intrauterine growth retardation) affecting mother, third trimester, not applicable or unspecified fetus , unspecified gestational age Procedures [facility] Troy Biswas MD [address] [facility] [address] [place] [address] Phone: tel: fax: Referral ID Status Reason Start Date Expiration Date V isits Requested Visits Authorized [id number] Authorized 02/01/2025 05/03/2026 1 1 Reason for Visit * Reason Comments IUGR Encounter Details Date Type Department Care Team (Late st Contact Info) Description 02/01/2025 11:00 AM EDT Office Visit [facility] MATERNAL MEDICINE [address] [facility] [address] [place] [address] Troy Biswas MD [address] [facility] [address] [place], [place] [id number] IUGR (intrauterine growth retardation) affecting mother, third [...] pressures today. Review of her records from [place] and indicate that these are clearly elevated [...] twice weekly testing with her doctors in [place].We will rescan the patient again in 2 [...] pressures today. Review of her records from [place] and indicate that these are clearly elevated [...] twice weekly testing with her doctors in [place].We will rescan the patient again in 2 weeks time to assess growth and wellbeing as well as torepeat umbilical artery Dopplers. We would recommend delivery at 37 weeks gestation unless other complications such as significant preeclampsia arise. Patient was counseled extensively regarding movement will contact her provider immediately ifshe notices any decreased movement. Orders: - POC Protein, Urine, Qualitative, Dipstick - [facility] [place]; Future 2. , unspecified gestational age - [facility] [place]; Future Follow Up Return in about 2 [...] or CVS. Troy Biswas MD Maternal Medicine, [facility] [place] 02/01/2025 documented in this encounter Plan of Treatment Scheduled Orders Name Type Priority Associated Diagnoses Orde r Schedule [facility] Imaging Routine IUGR [...] AM EDT) Protein, POC Trace(A) Negative mg/dL [facility] Lot Number [id number] [facility] Expiration Date [facility] Urine 02/01/2025 11:2 3 AM EDT us Troy Biswas MD POINT OF CARE TEST ORDERAB LES Final Result [facility]
[address] [place] [address], documented in this encounter Visit Diagnoses Diagnosis IUGR (intrauterine growth retardation) affecting mother, third trimester, not applicable or unspecified fetus- Primary , unspecified gestational age documented in this encounter Care Teams Irrigator Gravity Flow Relationship Specialty Start Date End Date Dorian Ramos APRN [address] [place] [address] PCP - General Family Medicine 07/24/20 documented as of this encounter
--- OUTSIDE RECORDS SUMMARY | 2025-02-01 11:44 | XMS_ITS | Encounter Summary ---
[facility] Address [address] [place] [address] Care Team Providers Care Sales Analytics Manager Name Role Phone Dorian Ramos SHARI Primary Care Provider + [phone] Reason for Visit * Reason Comments Elevated Blood Pressure Encounter Details Date Type Department Care Team (Late st Contact Info) Description 02/01/2025 11:44 AM EDT - 02/01/2025 1:20 PM EDT Hospital Encounter [facility] OBSTETRIC EMERGENCY DEPARTMENT [address] [place] [id number] Taiwo Snider, DO [address] [facility] [address] [place] [id number] Discharge Disposition: Home or Self Care Social [...] Sign Reading Time Taken Comments Blood Pressure 147/91 02/01/2025 12:30 PM EDT Pulse 98 02/01/2025 12:00 PM EDT Temperature 37.1 C (98.7 F) 02/01/2025 12:00 PM EDT Respiratory Rate 18 02/01/2025 12:00 PM EDT Oxygen Saturation 99% 02/01/2025 12:00 PM EDT Inhaled Oxygen Concentration - - Weight 76.2 kg (168 lb) 02/01/2025 12:02 PM EDT Height 165.1 cm (5' 5 ) 02/01/2025 12:02 PM EDT Body Mass Index 27.96 02/01/2025 12:02 PM EDT documented in this encounter Functional Status * Question Answer Date of Assessment Author 1. Wish to be (Past 1 Month) No 025 12:03 PM EDT Vandana Fu, SUHAS 2. Non-Specific Active Suici angelica Thoughts (Past 1 Month) No 02/01/2025 12:03 PM EDT Dalton Fu RN * Calculated C-SSRS Risk Score (Lifetime/Recent) Answer Date of Assessment Author No Risk Indicated 02/01/2025 12:03 PM EDT Vandana Fu, RN * [place] Suicide Severity Rating Scale (Screener/Recent Self-Report) Question Answer Date of Assessment Author 6. Suicidal Behavior (Lifetime) No 12:03 PM EDT Vandana Fu RN documented as of this encounter Discharge Instructions * Discharge Instructions* Vandana Fu RN - 02/01/2025 1:17 PM EDT Return to labor gutierrez if any of the following occur: decreased movement, vaginal bleeding, leaking of fluid * Attachments The following attachments cannot be sent through Care Everywhere. * Movement Counts (Citizen Of [place]) * High Blood Pressure and (Pre-Eclampsia and Eclampsia): What to Know (Citizen Of [place]) documented in this encounter Medications at Time of Discharge FLUoxetine (PROzac) 40 MG capsule Take 1 capsule by mouth Daily. Vit-Fe Fumarate-FA ( VITAMIN PO) Take 1 tablet by mouth Daily. documented as of this encounter Nursing Notes * Vandana Fu RN - 02/01/2025 1:21 PM EDT Pt discharged home per MD order. RN instructed pt to return to labor gutierrez if any of the following occur: decreased movement, vaginal bleeding, leaking of fluid. Pt verbalized understanding. Pt ambulating off unit in stable condition with spouse and all personal belongings. documented in this encounter Miscellaneous Notes * CELINA Notes - Taiwo Snider DO - 02/01/2025 11:49 AM EDT Images from the original note were not included. [facility] Obstetric History and Physical Referring Provider: Vandana Zuleta DO Cc: Elevated blood pressure. Subjective Patient is a 29 y.o. female currently at 34w0d, who presents with elevated BP. Patient seentoday in PDC for evaluation of IUGR which was confirmed. Normal Dopplers, DARLENE, and BPP. Overall growth at the 5th percentile with abdominal circumference at the 1st percentile. Blood pressure elevated in 144/95 and 157/82. Patient without symptoms urine dip trace. Initial care by Dr. Mai Early. . The following portions of the patients history were reviewed and updated as appropriate: current medications, allergies, past medical history, past surgical history, past family history, past social history, and problem list . Information: Maternal Labs Blood Type No results found for: ABO Rh Status No results found for: RH Antibody Screen No results found for: ABSCRN Gonnorhea No results found for: GCCX Chlamydia No results found for: CLAMYDCU RPR No results found for: RPR Syphilis Antibody No results found for: SYPHILIS Rubella No results found for: RUBELLAIGGIN Hepatitis B Surface Antigen No results found for: HEPBSAG HIV-1 Antibody No results found for: LABHIV1 Hepatitis C Antibody No results found for: HEPCAB Rapid Urin Drug Screen No results found for: AMPMETHU , BARBITSCNUR , LABBENZSCN , LABMETHSCN , LABOPIASCN , THCURSCR , COCAINEUR , AMPHETSCREEN , PROPOXSCN , BUPRENORSCNU , METAMPSCNUR , OXYCODONESCN , TRICYCLICSCN Group B Strep Culture No results found for: GBSANTIGEN Past OB History: OB History Para Term AB Living 1 0 0 0 0 0 SAB IAB Ectopic Molar Multiple Live Births 0 0 0 0 0 0 # Outcome Date GA Lbr Deion/2nd Weight Sex Type Anes PTL Lv 1 Current Past Medical History: Past Medical History: Diagnosis Date 2022 Taking medication Past Surgical History Past Surgical History: Procedure Laterality Date WISDOM TOOTH EXTRACTION Family History: Family History Problem Relation Age of Onset Asthma Mother Hypertension Father Social History: reports that she has never smoked. She has never used smokeless tobacco. reports that she does not currently use alcohol. reports no history of drug use. General ROS Negative Findings:Headaches, Visual Changes, Epigastric pain, Anorexia, Nausia/Vomiting, ROM, and Vaginal Bleeding ROS All other systems have been reviewed and are neg Objective Vital Signs Range for the last 24 hours Temperature: Temp: [98.7 ??F (37.1 ??C)] 98.7 ??F (37.1 ??C) Temp Source: Temp src: Oral BP: BP: (144-157)/(85-99) 147/91 Pulse: Heart Rate: [98] 98 Respirations: Resp: [18] 18 SPO2: SpO2: [99 %] 99 % O2 Amount (l/min): O2 Devices Weight: Weight: [76.2 kg (168 lb)-76.4 kg (168 lb 6.4 oz)] 76.2 kg (168 lb) Physical Examination: General: alert, appears stated age, and cooperative Skin: normal HEENT: Lungs: Heart: Gastrointestinal: Abdomen soft, gravid uterus nontender no guarding benign exam Lower Extremities: Trace edema, no calf tenderness : Musculoskeletal: Neuro: No focal deficits noted Heart Rate Assessment Method: HR Assessment Method: external Beats/min: HR (beats/min): 140 Baseline: HR Baseline: normal range Varibility: HR Variability: moderate (amplitude range 6 to 25 bpm) Accels: HR Accelerations: greater than/equal to 15 bpm, lasting at least 15 seconds Decels: HR Decelerations: absent Tracing Category: NST indications IUGR/hypertension, interpretation reactive accelerations present 15 x 15 x 2, no deceleration noted, onset 1212 endtme 1252 no ctx Uterine Assessment Method: Method: external tocotransducer Frequency (min): Ctx Count in 10 min: Duration: Intensity: Contraction Intensity: no contractions Intensity by IUPC: Resting Tone: Resting Tone by IUPC: [place] Units: Laboratory Results: Lab Results (last 24 hours) Procedure Component Value Units Date/Time Preeclampsia Panel [[id number]] (Abnormal) Collected: 02/01/251216 Specimen: Blood Updated: 02/01/25 1303 Alkaline Phosphatase 148 U/L ALT (SGPT) 18 U/L AST (SGOT) 28 U/L Creatinine 0.75 mg/dL Total Bilirubin <0.2 mg/dL LDH 218 U/L Uric Acid 5.3 mg/dL Protein / Creatinine Ratio, Urine - Urine, Clean Catch [[id number]] Collected: 02/01/25 1223 Specimen: Urine, Clean Catch Updated: 02/01/25 1228 CBC (No Diff) [[id number]] (Abnormal) Collected: 02/01/25 121 Specimen: Blood Updated: 02/01/25 1225 WBC 7.99 10*3/mm3 RBC 3.83 10*6/mm3 Hemoglobin 12.2 g/dL Hematocrit 34.8 % MCV 90.9 fL MCH 31.9 pg MCHC 35.1 g/dL RDW 11.9 % RDW-SD 39.1 fl MPV 9.7 fL Platelets 276 10*3/mm3 Radiology Review: Imaging Results (Last 24 Hours) No results found for the last 24 hours. Other Studies: Assessment & Plan * No active hospital problems. * CELINA Course / Assessment: 1. All lab and imaging results listed above have been reviewed by me. 2. Intrauterine at 34w0d gestation with reactive status. 3. Gestational hypertension without severe features 4. IUGR overall at the 5th percentile with AC at the 1st percentile with normal DARLENE, umbilical artery Dopplers, and biophysical profile Plan: Discharge to home, kick count, modified bedrest, preeclampsia instructions given. 2. Recommend to follow-up with primary OB provider for twice-weekly testing until delivery with weekly labs. Starting this weekend. Follow-up ultrasound with PDC in 2 weeks. Severe features develop proceed with delivery. 3. Plan of care has been reviewed with patient. 4. Risks, benefits of treatment plan have been discussed. 5. All questions have been answered. 6. Taiwo Snider DO 02/01/2025 13:20 EDT documented in this encounter Plan of Treatment Not on file documented as of this encounter Procedures Procedure Name Priority Date/Time Associated Diagnosis Comments PROTEIN / CREATININE RATIO, URINE STAT 02/01/2025 12:23 PM EDT PRE-ECLAMPSIA PANEL STAT 02/01/2025 1 2:17 PM EDT CBC (NO DIFF) STAT 02/01/2025 12:17 PM EDT NONSTRESS TEST Routine 02/01/2025 11:48 AM EDT documented in this encounter Results * Protein / Creatinine Ratio, Urine - Urine, Clean Catch (02/01/2025 12:23 PM EDT) Protein/Creati nine Ratio, Urine 106.4 0.0 - 200.0 mg/G Crea 02/01/2025 6:57 PM EDT [facility] Creatinine, Urine 158.9 mg/dL 02/01/2025 6:57 PM EDT [facility] Total Protein, Urine 16.9 mg/dL 02/01/2025 6:57 PM EDT [facility] Urine Urine specimen obtained by clean catch procedure / Unknown Collection / Unknown 02/01/2025 12:23 PM EDT 02/01/2025 12:28 PM EDT Taiwo Snider DO URINE ORDERABLES Final Resu lt Performing Organization Address City/[facility]/ZIP Co de Phone Number [facility]
[address] [place] [address], * (ABNORMAL) Preeclampsia Panel (02/01/2025 12:17 PM EDT) Alkaline Phosphatase 148(H) 39 - 117 U/L 02/01/2025 1:03 PM EDT [facility] ALT (SGPT) 18 1 - 33 U/L 02/01/2025 1:03 PM EDT [facility] AST (SGOT) 28 1 - 32 U/L 02/01/2025 1:03 PM EDT [facility] Creatinine 0.75 0.57 - 1.00 mg/dL 02/01/2025 1:03 PM EDT [facility] Total Bilirubin <0.2 0.0 - 1.2 mg/dL 02/01/2025 1:03 PM EDT [facility] LDH 218(H) 135 - 214 U/L 02/01/2025 1:03 PM EDT [facility] Uric Acid 5.3 2.4 - 5.7 mg/dL 02/01/2025 1:03 PM EDT [facility] Blood Line / Unknown 02/01/2025 12 :17 PM EDT 02/01/2025 12:21 PM EDT us Taiwo Snider DO LAB BLOOD ORDERABLES Final Result Performing Organization Address City/[facility]/ZIP Co de Phone Number [facility]
[address] [place] [address], * (ABNORMAL) CBC (No Diff) (02/01/2025 12:17 PM EDT) WBC 7.99 3.40 - 10.80 10*3/mm3 02/01/2025 12:25 PM EDT [facility] RBC 3.83 3.77 - 5.28 10*6/mm3 02/01/2025 12:25 PM EDT [facility] Hemoglobin 12.2 12.0 - 15.9 g/dL 02/01/2025 12:25 PM EDT [facility] Hematocrit 34.8 34.0 - 46.6 % 02/01/2025 12:25 PM EDT [facility] MCV 90.9 79.0 - 97.0 fL 02/01/2025 12:25 PM EDT [facility] MCH 31.9 26.6 - 33.0 pg 02/01/2025 12:25 PM EDT [facility] MCHC 35.1 31.5 - 35.7 g/dL 02/01/2025 12:25 PM EDT [facility] RDW 11.9(L) 12.3 - 15.4 % 02/01/2025 12:25 PM EDT [facility] RDW-SD 39.1 37.0 - 54.0 fl 02/01/2025 12:25 PM EDT [facility] MPV 9.7 6.0 - 12.0 fL 02/01/2025 12:25 PM EDT [facility] Platelets 276 140 - 450 10*3/mm3 02/01/2025 12:25 PM EDT [facility] Blood Line / Unknown 02/01/2025 12 :17 PM EDT 02/01/2025 12:21 PM EDT Taiwo Snider DO LAB BLOOD ORDERABLES Final Result [facility]
[address] [phone] documented in this encounter Visit Diagnoses Not on filedocumented in this encounter Care Teams Sales Analytics Manager Relationship Specialty Start Date End Date Dorian Ramos APRN [address] [place] [address] [place] [id number] PCP - General Family Medicine 07/24/20 documented as of this encounter
--- OUTSIDE RECORDS SUMMARY | 2025-02-18 09:52 | XMS_ITS | Encounter Summary ---
Author Organization [facility] Address [address] [place] [address] Care Team Providers Care School Transportation Supervisor Name Role Phone Dorian Ramos SHARI Primary Care Provider [phone] Encounter Details Date Type Department Care Team (Latest Contact Info) Description 02/01/2025 Travel Social History Tobacco Use Types Packs/Day Years [...] Month) No 025 12:03 PM EDT Vandana Fu RN 2. Non-Specific Active Suici angelica Thoughts (Past 1 Month) No 02/01/2025 12:03 PM EDT Dalton Fu RN * Calculated C-SSRS Risk Score (Lifetime/Recent) Answer Date of Assessment Author No Risk Indicated 02/01/2025 12:03 PM EDT Vandana Fu RN * [place] Suicide Severity Rating Scale (Screener/Recent Self-Report) Question Answer Date of Assessment Author 6. Suicidal Behavior (Lifetime) No 12:03 PM EDT Vandana Fu RN documented as of this encounter Plan of Treatment Not on file documented as of this encounter Visit Diagnoses Not on filedocumented in this encounter Care Teams School Transportation Supervisor Relationship Specialty Start Date End Date Dorian Ramos APRN [address] [place] [place] [address] PCP - General Family Medicine 07/24/20 documented as of this encounter
--- OUTSIDE RECORDS SUMMARY | 2025-02-18 09:52 | XMS_ITS | Clinical Summary ---
Author Organization [facility] Address [address] [place] [place] [address] Care Team Providers Care Chemistry Technologist Name Role Phone Pcp, No Primary Care [...] Tdap) 2013 10/03/1998, 10/04/1995 UKY-Pap Smear 2015 [id number] Vaccine (3 - 2023- season) 2024 08/04/2021, [...] to complete this topic Insurance Care Teams Chemistry Technologist Relationship Specialty Start Date End Date Crystal Ben[address] [address] PCP - General Family Medicine 11/20/21
--- OUTSIDE RECORDS SUMMARY | 2025-02-18 09:53 | XMS_ITS | Clinical Summary ---
Author Organization [facility] Address [address] [place] [address] Care Team Providers Care Director Client Services Name Role Phone Selwynajay Dorian MCCARTHY Primary Care Provider + [phone] Allergies Active Allergy Reactions Criticality Noted Date Comments Penicillins Rash Low 07/24/2020 Medications FLUoxetine (PROzac) 40 MG capsule Take 1 capsule by mouth Daily. Active Vit-Fe Fumarate-FA ( VITAMIN PO) Take 1 tablet by mouth Daily. Active spironolactone (ALDACTONE) 100 MG tablet 0 03/28/20 21 Discontinu ed(*Therap y completed) norgestimate-et hinyl estradiol (ORTHO TRI-CYCLEN,EARLENE ESSA) 0.18/0.215/0.25 MG-35 MCG per tablet Take 1 tablet by mouth Daily. 84 tablet 4 02/11/2021 2:27 PM EDT 1 03/28/20 21 Discontinu ed(*Therap y completed) Active Problems Problem Noted Date Diagnosed Date IUGR (intrauterine growth re tardation) affecting mother, third trimester, not applicable or unspecified fetus 02/01/2025 Assessment & Plan (02/01/2025 11:39 AM EDT): Patient referred for complicated by intrauterine growth [...] pressures today. Review of her records from [place] and indicate that these are clearly elevated [...] twice weekly testing with her doctors in [place]. We will rescan the patient again in 2 weeks time to assess growth and wellbeing as well as to repeat umbilical artery Dopplers. We would recommend delivery at 37 weeks gestation unless other complications such as significant preeclampsia arise. Patient was counseled extensively regarding movement will contact her provider immediately if she notices any decreased movement. 02/01/2025 Estimated Date of Delivery Comme nts Yes 03/15/2025 Date entered yesika or to episode creation Encounters Date Type Department Care Team Description 02/01/2025 11:44 AM EDT - 02/01/2025 1:20 PM EDT Hospital Encounter [facility] OBSTETRIC EM[facility]GENCY DEPARTMENT [address] [place] [phone] Taiwo Snider, DO Discharge Disposition: Home or Self Care 02/01/2025 11:00 AM EDT Office Visit [facility]ERNAL MED[facility] [address] [facility] [address] [place] [phone] Troy Biswas MD IUGR (intrauterine growth retardation) affecting mother, third trimester, not applicable or unspecified fetus (Primary Dx); , unspecified gestational age 0702/01/2025 10:37 AM EDT - 02/01/2025 11:59 PM EDT Hospital En[facility] [address] [place] [address] Kimo Joseph, DO Maternal care for other known or suspected poor growth, third trimester, not applicable or unspecified; , unspecified gestational age Discharge Disposition: Home or Self Care 02/01/2025 Travel from Last 3 Months Family History Medical History Relation Name Comments Hypertension Father Asthma Mother Relation Name Status Comments Father Alive Mother Alive Social History Tobacco Use Types Packs/Day Years [...] Mass Index 27.96 02/01/2025 12:02 PM EDT Plan of Treatment Health Maintenance Due Date Last Done Comments Annual Gynecologic Pelvic an d Breast Exam 1994 TDAP/TD VACCINES (1 - Tdap) 2013 PAP SMEAR 2015 COVID-19 Vaccine (3 - 2023-2 5 season) 2024 08/04/2021, 2021 ANNUAL PHYSICAL 01/18/2025 HEPATITIS C SCREENING 01/18/2025 INFLUENZA VACCINE 05/02/2025 Pneumococcal Vaccine 0-49 Aged Out No longer eligible based on patient's age to complete this topic RSV Vaccine - Adults (No Doses Required) Completed Procedures Procedure Name Priority Date/Time Associated Diagnosis Comments PROTEIN / CREATININE RATIO, URINE STAT 02/01/2025 12:23 PM EDT PRE-ECLAMPSIA PANEL STAT 02/01/2025 1 2:17 PM EDT CBC (NO DIFF) STAT 02/01/2025 12:17 PM EDT [facility] Routine 02/01/2025 11:53 AM EDT Maternal care for other known or suspected poor growth, third trimester, not applicable or unspecified , unspecified gestational age NONSTRESS TEST Routine 02/01/2025 11:48 AM EDT POCT PROTEIN, URINE, QUALITATIVE, DIPSTICK Routine 02/01/2025 11:23 AM EDT IUGR (intrauterine growth retardation) affecting mother, third trimester, not applicable or unspecified fetus from Last 3 Months Results * Protein / Creatinine Ratio, Urine - Urine, Clean Catch (02/01/2025 12:23 PM EDT) Protein/Creati nine Ratio, Urine 106.4 0.0 - 200.0 mg/G Crea 02/01/2025 6:57 PM EDT [facility] Creatinine, Urine 158.9 mg/dL 02/01/2025 6:57 PM EDT [facility] Total Protein, Urine 16.9 mg/dL 02/01/2025 6:57 PM EDT [facility] Urine Urine specimen obtained by clean catch procedure / Unknown Collection / Unknown 02/01/2025 12:23 PM EDT 02/01/2025 12:28 PM EDT Taiwo Snider DO URINE ORDERABLES Final Resu lt [facility]
[address] [place] [address], * (ABNORMAL) Preeclampsia Panel (02/01/2025 12:17 PM EDT) Alkaline Phosphatase 148(H) 39 - 117 U/L 02/01/2025 1:03 PM EDT [facility] ALT (SGPT) 18 1 - 33 U/L 02/01/2025 1:03 PM EDT [facility] AST (SGOT) 28 1 - 32 U/L 02/01/2025 1:03 PM EDT [facility] Creatinine 0.75 0.57 - 1.00 mg/dL 02/01/2025 1:03 PM EDT [facility] Total Bilirubin <0.2 0.0 - 1.2 mg/dL 02/01/2025 1:03 PM EDT [facility] LDH 218(H) 135 - 214 U/L 02/01/2025 1:03 PM EDT [facility] Uric Acid 5.3 2.4 - 5.7 mg/dL 02/01/2025 1:03 PM EDT [facility] Blood Line / Unknown 02/01/2025 12 :17 PM EDT 02/01/2025 12:21 PM EDT Taiwo Snider DO LAB BLOOD ORDERABLES Final Result [facility]
[address] [place] [address], * (ABNORMAL) CBC (No Diff) (02/01/2025 12:17 PM EDT) WBC 7.99 3.40 - 10.80 10*3/mm3 02/01/2025 12:25 PM EDT [facility] RBC 3.83 3.77 - 5.28 10*6/mm3 02/01/2025 12:25 PM EDT [facility] Hemoglobin 12.2 12.0 - 15.9 g/dL 02/01/2025 12:25 PM EDT [facility] Hematocrit 34.8 34.0 - 46.6 % 02/01/2025 12:25 PM EDT [facility] MCV 90.9 79.0 - 97.0 fL 02/01/2025 12:25 PM EDT [facility] MCH 31.9 26.6 - 33.0 pg 02/01/2025 12:25 PM EDT [facility] MCHC 35.1 31.5 - 35.7 g/dL 02/01/2025 12:25 PM EDT [facility] RDW 11.9(L) 12.3 - 15.4 % 02/01/2025 12:25 PM EDT [facility] RDW-SD 39.1 37.0 - 54.0 fl 02/01/2025 12:25 PM EDT [facility] MPV 9.7 6.0 - 12.0 fL 02/01/2025 12:25 PM EDT [facility] Platelets 276 140 - 450 10*3/mm3 02/01/2025 12:25 PM EDT [facility] Blood Line / Unknown 02/01/2025 12 :17 PM EDT 02/01/2025 12:21 PM EDT us Taiwo Gaticagee MUIR LAB BLOOD ORDERABLES Final Result [facility]
[address] [place] [address], * [facility] (02/01/2025 11:53 AM EDT) Anatomical Region Laterality Modality Ultrasound 02/01/2025 11:1 1 AM EDT Narrative 02/01/2025 11:57 AM EDT PAT NAME: CAROLYN BORREGO MED REC#: [id number] DA: [id number] PAT GEND: F PAT TYPE: O EXAM HUANG: [id number] REF PHYS KIMO JOSEPH Comparison Studies There are no relevant prior [...] EFW (oz) 1 oz EFW by: Hadlock ([id number]) Extended Tibia 49.5 mm 29w 5d <1% Farzana Fibula 50.6 mm 30w 6d 21% Farzana Foot 64.4 mm 10% Chitty Radius 43.2 mm 30w 1d 26% Farzana Ulna 47.3 mm 30w 0d <1% Farzana Cav. septi pel. tr 9.0 mm Culvert Installer 5.8 mm CM 4.6 mm 1% Nicolaides [...] normal IVC: normal 3-vessel view: Appears normal 6-ycvmxa-kablmeh view: Appears normal Rt lung: Appears normal [...] evaluation for growth and Doppler exam at [facility] in 2 weeks. Follow up appointment scheduled here in 4 weeks. Coding ====== Description: 75782-47 Detailed Ultrasound Description: 24197-03 BPP without NST Description: 76228-64 Doppler Umbilical Artery Screedman/Laborer: Lucy Pereyra RDMS Physician: Deric Biswas MD, FACOG Electronically signed by: Deric Biswas MD, FACOG at: 11:57 Procedure Note Troy Biswas MD - 02/01/2025 PAT NAME: CAROLYN BORREGO MED REC#: [id number] DA: [id number] PAT GEND: F PAT TYPE: O EXAM HUANG: [id number] REF PHYS KIMO JOSEPH Comparison Studies There are no relevant prior studies to which this study is beingcompared Patient Status Outpatient Indication ======== Small for gestational age Maternal Assessment Itvzco028 cm Height (ft)5 ft Height (in)4 in Ynomgu49 kg Weight (lb)168 lb BMI28.96 kg/m Method ======= Transabdominal ultrasound examination. View: Adequate view ========= Riggins . Number of fetuses: 1 Dating ====== Method of dating:based on stated ABILIO GA by prior [id number] w + 0 d ABILIO by prior assessment:03/15/2025 Ultrasound examination on:02/01/2025 GA by U/S based upon:AC, BPD, Femur, HC GA by U/S32 w + 6 d ABILIO by U/S:03/23/2025 Assigned:based on stated ABILIO, selected on 02/01/2025 Assigned GA34 w + 0 d Assigned ABILIO:03/15/2025 [id number] d Biometry Standard BPD84.5 mm 34w 0d 48% Hadlock LCH866.1 mm 33w 4d 42% Farzana HC309.4 mm 34w 4d 27% Hadlock Cerebellum tr48.6 mm 36w 1d 72% Hill AC268.7 mm 31w 0d 1% Hadlock Femur61.4 mm 31w 6d 4% Hadlock Gorttwj38.7 mm 31w 6d 9% Farzana HC / AC1.15 EFW1,849 g 31w 3d 5% Hadlock EFW (lb)4 lb EFW (oz)1 oz EFW by:Hadlock ([id number]) Extended Tibia49.5 mm 29w 5d <1% Farzana Oqgyfy84.6 mm 30w 6d 21% Farzana Foot64.4 mm 10% Chitty Azdeab49.2 mm 30w 1d 26% Farzana Ulna47.3 mm 30w 0d <1% Farzana Cav. septi pel. tr9.0 mm Vp5.8 mm CM4.6 mm 1% Nicolaides Head / Face / Neck Cephalic index0.82 66% Nicolaides Extremities / Bony Struc FL / BPD0.73 FL / HC0.20 FL / AC0.23 Other Structures FEY903 bpm General Evaluation Cardiac activity present. FHR [...] view:Appears normal SVC:normal IVC:normal 3-vessel view:Appears normal 3-cprwcv-sqnxazn view:Appears normal Rt lung:Appears normal Lt lung:normal [...] Structures Uterus / Cervix Cervix:Visualized Approach:Transabdominal Cervical dosltm66.5 mm Ovaries / Tubes / Adnexa Rt [...] evaluation for growth and Doppler exam at [facility] in2 weeks. Follow up appointment scheduled here in 4 weeks. Coding ====== Description:03410-71 Detailed Ultrasound Description:83358-09 BPP without NST Description:56830-17 Doppler Umbilical Artery Screedman/Laborer: Lucy Pereyra RDMS Physician: Deric Biswas MD, FACOG Electronically signed by: Deric Biswas MD, FACOG at: 11:57 us Kimo Joseph DO IMG US ORDERABLES Final Res ult * (ABNORMAL) POC Protein, Urine, Qualitative, Dipstick (02/01/2025 11:23 AM EDT) Protein, POC Trace(A) Negative mg/dL [facility] Lot Number [id number] [facility] Expiration Date [facility] Urine 02/01/2025 11:2 3 AM EDT us Troy Biswas MD POINT OF CARE TEST ORDERAB LES Final Result [facility]
[address] [place] [id number], from Last 3 Months Insurance [employer] Care Teams Director Client Services Relationship Specialty Start Date End Date Dorian Ramos APRN [address] [place] [address] PCP - General Family Medicine 07/24/20
[2025-02-18 09:59] VITALS: BMI 29.2
[2025-02-18 10:05] VITALS: BP 151/97; PULSE 94; RESP 17; TEMP 37; O2SAT 98; BMI 29.2
[2025-02-18 10:11] LABS: Microscopic, Urine URINE MICROSCOPIC (MICROSCOPIC)
[2025-02-18 10:17] LABS: Bilirubin,Urine Negative (Negative); Color,Urine YELLOW (Yellow); Glucose,Urine (UA) Negative (Negative); Ketones,Urine Negative (Negative); Leukocyte Esterase,Urine Negative (Negative); PH,Urine 6.0 (5.0-8.5); Protein,Urine 2+ (Negative); Specific Gravity, Urine >= 1.030 (1.005-1.030); Urobilinogen,Urine 0.2 EU/dl (0.2)
[2025-02-18 10:20] VITALS: BP 145/84; PULSE 85; RESP 16; O2SAT 96
[2025-02-18 10:32] LABS: WBC,Urine Occasional #/hpf (0-3)
[2025-02-18 10:33] LABS: Bacteria,Urine Trace /lpf
[2025-02-18 10:35] VITALS: BP 149/84; PULSE 82; RESP 17; O2SAT 97
== END 2025-02-18 10:45 | disposition home or self-care (01) ==
LOC: RAD 09:51 → OBOUT 09:53 → OB 09:54
PROVIDERS: PCP Nurse Practitioner Family; Visit Provider Nurse Practitioner Obstetrics & Gynecology
DX: O13.3 Gestational [pregnancy-induced] hypertension without significant proteinuria, third trimester (principal); Z3A.36 36 weeks gestation of pregnancy
CPT/HCPCS: 59025; 81001; 99212; G0463

== ENCOUNTER 2025-02-20 19:43 | Inpatient (IN) | payer OTHER, SELFPAY ==
--- OUTSIDE RECORDS SUMMARY | 2025-02-01 10:37 | XMS_ITS | Encounter Summary ---
Author Organization [facility] Address [address] [place] [address] Care Team Providers Care Cranberry Sorter Name Role Phone Dorian Ramos APRN Primary Care Provider + [phone] Reason for Referral * Diagnostic Imaging (Routine) - Closed Specialty Diagnoses / Procedures Referred By Lion brantley Referred To Contact Radiology Diagnoses Maternal care for other known or suspected poor growth, third trimester, not applicable or unspecified , unspecified gestational age Procedures [facility] [place] Kimo Zuleta DO [address] [place] [address] [place] [address] Phone: tel: fax: [facility] [address] [place] [address] Phone: tel: Referral ID Status Reason Start Date Expiration Date Visits Re quested Visits Authorized [id number] Closed 01/18/2025 04/19/2026 1 1 Reason for Visit * Diagnostic Imaging (Routine) - Closed Specialty Diagnoses / Procedures Referred By Lion brantley Referred To Contact Radiology Diagnoses Maternal care for other known or suspected poor growth, third trimester, not applicable or unspecified , unspecified gestational age Procedures [facility] [place] Kimo Zuleta DO [address] [place] [address] [address] [place] [address] Phone: tel: fax: [facility] [address] [place] [address] Phone: tel: Referral ID Status Reason Start Date Expiration Date Visits Re quested Visits Authorized [id number] Closed 01/18/2025 04/19/2026 1 1 Encounter Details Date Type Department Care Team (Latest Contact Info) Description 02/01/2025 10:37 AM EDT - 02/01/2025 11:59 PM EDT Hospital Encounter [facility] [address] [place] [id number] Kimo Zuleta, DO [address] [facility] [address] [facility]31 Maternal care for other known or suspected [...] 12:03 PM EDT Kimo Fu RN * Wilkes Suicide Severity Rating Scale (Screener/Recent Self-Report) Question [...] Procedure Name Priority Date/Time Associated Diagnosis Comments [facility] Routine 02/01/2025 11:53 AM EDT Maternal care for other known or suspected poor growth, third trimester, not applicable or unspecified , unspecified gestational age documented in this encounter Results * [facility] (02/01/2025 11:53 AM EDT) Anatomical Region Laterality Modality Ultrasound 02/01/2025 11:1 1 AM EDT Narrative 02/01/2025 11:57 AM EDT PAT NAME: CAROLYN BORREGO MED REC#: [id number] DA: [id number] PAT GEND: F PAT TYPE: O EXAM HUANG: [id number] REF PHYS KIMO ZULETA Comparison Studies There [...] EFW (oz) 1 oz EFW by: Hadlock ([id number]-XQ-[id number]-FL) Extended Tibia 49.5 mm 29w 5d <1% Farzana Fibula 50.6 mm 30w 6d 21% Farzana Foot 64.4 mm 10% Chitty Radius 43.2 mm 30w 1d 26% Farzana Ulna 47.3 mm 30w 0d <1% Farzana Cav. septi pel. tr 9.0 mm Senior Production Manager 5.8 mm CM 4.6 mm 1% Nicolaides [...] normal IVC: normal 3-vessel view: Appears normal 5-oxqttl-wmagmzz view: Appears normal Rt lung: Appears normal [...] evaluation for growth and Doppler exam at [facility] in 2 weeks. Follow up appointment scheduled here in 4 weeks. Coding ====== Description: 85375-81 Detailed Ultrasound Description: 88356-64 BPP without NST Description: 50197-33 Doppler Umbilical Artery Change Number Operator: Lucy Pereyra RDMS Physician: Deric Biswas MD, FACOG Electronically signed by: Deric Biswas MD, FACOG at: 11:57 Procedure Note Troy Biswas MD - 02/01/2025 PAT NAME: CAROLYN BORREGO MED REC#: [id number] DA: [id number] PAT GEND: F PAT TYPE: O EXAM HUANG: [id number] REF PHYS KIMO ZULETA Comparison Studies There are no relevant prior studies to which this study is beingcompared Patient Status Outpatient Indication ======== Small for gestational age Maternal Assessment Ohhago463 cm Height (ft)5 ft Height (in)4 in Bcjcjw22 kg Weight (lb)168 lb BMI28.96 kg/m Method ======= Transabdominal ultrasound examination. View: Adequate view ========= Riggins . Number of fetuses: 1 Dating ====== Method of dating:based on stated AIBLIO GA by prior sacwnrxabo62 w + 0 d ABILIO by prior assessment:03/15/2025 Ultrasound examination on:02/01/2025 GA by U/S based upon:AC, BPD, Femur, HC GA by U/S32 w + 6 d ABILIO by U/S:03/23/2025 Assigned:based on stated AIBLIO, selected on 02/01/2025 Assigned GA34 w + 0 d Assigned ABILIO:03/15/2025 pfojzb736 d Biometry Standard BPD84.5 mm 34w 0d 48% Hadlock QWX556.1 mm 33w 4d 42% Farzana HC309.4 mm 34w 4d 27% Hadlock Cerebellum tr48.6 mm 36w 1d 72% Hill AC268.7 mm 31w 0d 1% Hadlock Femur61.4 mm 31w 6d 4% Hadlock Cznvprf17.7 mm 31w 6d 9% Farzana HC / AC1.15 EFW1,849 g 31w 3d 5% Hadlock EFW (lb)4 lb EFW (oz)1 oz EFW by:Hadlock ([id number]-IB-TB-FL) Extended Tibia49.5 mm 29w 5d <1% Farzana Yuavwh90.6 mm 30w 6d 21% Farzana Foot64.4 mm 10% Chitty Trihzp61.2 mm 30w 1d 26% Farzana Ulna47.3 mm 30w 0d <1% Farzana Cav. septi pel. tr9.0 mm Vp5.8 mm CM4.6 mm 1% Nicolaides Head / Face / Neck Cephalic index0.82 66% Nicolaides Extremities / Bony Struc FL / BPD0.73 FL / HC0.20 FL / AC0.23 Other Structures DFS372 bpm General Evaluation Cardiac activity present. FHR [...] view:Appears normal SVC:normal IVC:normal 3-vessel view:Appears normal 5-opusbl-qaljenw view:Appears normal Rt lung:Appears normal Lt lung:normal [...] Structures Uterus / Cervix Cervix:Visualized Approach:Transabdominal Cervical uiqrnp37.5 mm Ovaries / Tubes / Adnexa Rt [...] evaluation for growth and Doppler exam at [facility] in2 weeks. Follow up appointment scheduled here in 4 weeks. Coding ====== Description:52149-84 Detailed Ultrasound Description:69569-02 BPP without NST Description:46320-98 Doppler Umbilical Artery Change Number Operator: Lucy Pereyra RDMS Physician: Deric Biswas MD, FACOG Electronically signed by: Deric Biswas MD, FACOG at: 11:57 us Kimo Zuleta DO IMG US ORDERABLES Final Res ult documented in this encounter Visit Diagnoses Diagnosis Maternal care for other known or suspected poor growth, third trimester, not applicable or unspecified , unspecified gestational age documented in this encounter Care Teams Cranberry Sorter Relationship Specialty Start Date End Date Dorian Ramos SHARI [address] [place] [address] [place] [address] PCP - General Family Medicine 07/24/20 documented as of this encounter
--- OUTSIDE RECORDS SUMMARY | 2025-02-01 11:00 | XMS_ITS | Encounter Summary ---
Author Organization [facility] Address [address] [place] [address] Care Team Providers Care Side Guider Name Role Phone Dorian Ramos APRN Primary Care Provider + [phone] Reason for Referral * Diagnostic Imaging (Routine) - Authorized Specialty Diagnoses / Procedures Referred By Contac t Referred To Contact Radiology Diagnoses IUGR (intrauterine growth retardation) affecting mother, third trimester, not applicable or unspecified fetus , unspecified gestational age Procedures [facility] Troy Bisaws MD [facility] [facility] [address] [place] [address] Phone: tel: fax: Referral ID Status Reason Start Date Expiration Date V isits Requested Visits Authorized [id number] Authorized 02/01/2025 05/03/2026 1 1 Reason for Visit * Reason Comments IUGR Encounter Details Date Type Department Care Team (Late st Contact Info) Description 02/01/2025 11:00 AM EDT Office Visit [facility] [address] [facility] [address] [place] [address] Troy Biswas MD [address] [facility] [address] [place], [place] [id number] IUGR (intrauterine growth retardation) affecting mother, third trimester, not applicable or unspecified fetus (Primary Dx); , unspecified gestational age Social History Tobacco Use Types Packs/Day Years [...] on file documented as of this encounter Last Filed Vital Signs Vital Sign Reading Time Taken Comments Blood Pressure 157/95 02/01/2025 11:09 AM EDT Pulse - - Temperature - - Respiratory Rate - - Oxygen Saturation - - Inhaled Oxygen Concentration - - Weight 76.4 kg (168 lb 6.4 oz) 02/01/2025 11:05 AM EDT Height - - Body Mass Index 28.91 07/24/2020 12:07 PM EST documented in this encounter Progress Notes * Troy Biswas MD - 02/01/2025 11:39 AM EDTAssociated Problem(s): IUGR (intrauterine growth retardation) affecting mother, third trimester, not applicable or unspecified fetus Patient referred for complicated by intrauterine growth restriction. Ultrasound in patient's primary OB office demonstrated poor growth. Patient notes no complications this and notes good movement. Patient's blood pressure in office was 144/95 with a repeat of 157/82. Urine dip trace protein. Ultrasound today demonstrates a fetus with overall growth at the 5th percentile and abdominal circumference at the 1st percentile. Amniotic fluid volume and umbilical artery Dopplers are normal. No abnormalities are seen. BPP is 8 out of 8. Fetus clearly shows significant intrauterine growth restriction. Possible etiology could be preeclampsia given the patient's elevated blood pressures today. Review of her records from [place] and indicate that these are clearly elevated pressures for the patient. We have sent the patient to labor and delivery for serial blood pressures and laboratory evaluation. If the patient has significant preeclampsia we will maintain the patient in the hospital. If patient's blood pressure normalized and labs are normal we will discharge the patient. If patient is discharged we would recommend bed rest and increase nutrition to the patient the patient does not smoke. We would recommend twice weekly testing with her doctors in [place].We will rescan the patient again in 2 weeks time to assess growth and wellbeing as well as torepeat umbilical artery Dopplers. We would recommend delivery at 37 weeks gestation unless other complications such as significant preeclampsia arise. Patient was counseled extensively regarding movement will contact her provider immediately ifshe notices any decreased movement. * Christa Santiago RN - 02/01/2025 11:00 AM EDT F/U with Dr. Zuleta next week, unsure of day. NIPT negative. Pt reports +FM. Denies contractions, cramping, leaking of fluid, vaginal bleeding. Pt denies H/A, epigastric pain, visual changes. Reports carpel tunnel in left hand. Denies other edema. * Troy Biswas MD - 02/01/2025 11:00 AM EDT Images from the original note were not included. Documentation of the ultrasound findings, images, and interpretations will be available in the patient's Viewpoint report which is located in the imaging tab in chart review. Maternal/ Medicine Consult Note Name: Madison Borrego : 1995 Referring Provider: Vandana Zuleta DO Chief Complaint IUGR Subjective History of Present Illness: Madison Borrego is a 29 y.o. 34w0d who presents today for IUGR ABILIO: Estimated Date of Delivery: 03/15/25 ROS: As noted in HPI. Past Medical History: Diagnosis Date 2022 Taking medication Past Surgical History: Procedure Laterality Date WISDOM TOOTH EXTRACTION OB History 1 Para 0 Term 0 0 AB 0 Living 0 SAB 0 IAB 0 Ectopic 0 Molar 0 Multiple 0 Live Births 0 Objective Vital Signs BP 157/95 Wt 76.4 kg (168 lb 6.4 oz) Estimated body mass index is 28.91 kg/m?? as calculated from the following: Height as of 07/24/20: 162.6 cm (64 ). Weight as of this encounter: 76.4 kg (168 lb 6.4 oz). Physical Exam Ultrasound Impression: See Viewpoint Assessment and Plan Madison Borrego is a 29 y.o. 34w0d who presents today for IUGR Diagnoses and all orders for this visit: 1. IUGR (intrauterine growth retardation) affecting mother, third trimester, not applicable or unspecified fetus (Primary) Assessment & Plan: Patient referred for complicated by intrauterine growth restriction. Ultrasound in patient's primary OB office demonstrated poor growth. Patient notes no complications this and notes good movement. Patient's blood pressure in office was 144/95 with a repeat of 157/82. Urine dip trace protein. Ultrasound today demonstrates a fetus with overall growth at the 5th percentile and abdominal circumference at the 1st percentile. Amniotic fluid volume and umbilical artery Dopplers are normal. No abnormalities are seen. BPP is 8 out of 8. Fetus clearly shows significant intrauterine growth restriction. Possible etiology could be preeclampsia given the patient's elevated blood pressures today. Review of her records from [place] and indicate that these are clearly elevated pressures for the patient. We have sent the patient to laborand delivery for serial blood pressures and laboratory evaluation. If the patient has significant preeclampsia we will maintain the patient in the hospital. If patient's blood pressure normalized andlabs are normal we will discharge the patient. If patient is discharged we would recommend bed rest and increase nutrition to the patient the patient does not smoke. We would recommend twice weekly testing with her doctors in [place].We will rescan the patient again in 2 weeks time to assess growth and wellbeing as well as torepeat umbilical artery Dopplers. We would recommend delivery at 37 weeks gestation unless other complications such as significant preeclampsia arise. Patient was counseled extensively regarding movement will contact her provider immediately ifshe notices any decreased movement. Orders: - POC Protein, Urine, Qualitative, Dipstick - [facility] [place]; Future 2. , unspecified gestational age - [facility] [place]; Future Follow Up Return in about 2 weeks (around 02/15/2025). I spent 20 minutes caring for the patient on the day of service. This included: obtaining or reviewing a separately obtained medical history, reviewing patient records, performing a medically appropriate exam and/or evaluation, counseling or educating the patient/family/caregiver, ordering medications, labs, and/or procedures and documenting such in the medical record. This does not include time spent on review and interpretation of other tests such as ultrasound or the performance of other procedures such as amniocentesis or CVS. Troy Biswas MD Maternal Medicine, [facility] [place] 02/01/2025 documented in this encounter Plan of Treatment Scheduled Orders Name Type Priority Associated Diagnoses Orde r Schedule [facility] Imaging Routine IUGR (intrauterine growth retardation) affecting mother, third trimester, not applicable or unspecified fetus , unspecified gestational age Expected: 02/15/2025, Expires: 02/01/2026 documented as of this encounter Procedures Procedure Name Priority Date/Time Associated Diagnosis Comments POCT PROTEIN, URINE, QUALITATIVE, DIPSTICK Routine 02/01/2025 11:23 AM EDT IUGR (intrauterine growth retardation) affecting mother, third trimester, not applicable or unspecified fetus documented in this encounter Results * (ABNORMAL) POC Protein, Urine, Qualitative, Dipstick (02/01/2025 11:23 AM EDT) Protein, POC Trace(A) Negative mg/dL [facility] Lot Number [id number] [facility] Expiration Date [facility] Urine 02/01/2025 11:2 3 AM EDT us Troy Biswas MD POINT OF CARE TEST ORDERAB LES Final Result [facility]
[address] [place] [address], documented in this encounter Visit Diagnoses Diagnosis IUGR (intrauterine growth retardation) affecting mother, third trimester, not applicable or unspecified fetus- Primary , unspecified gestational age documented in this encounter Care Teams Side Guider Relationship Specialty Start Date End Date Dorian Ramos APRN [address] [place] [address] [place] [address] PCP - General Family Medicine 07/24/20 documented as of this encounter
--- OUTSIDE RECORDS SUMMARY | 2025-02-01 11:44 | XMS_ITS | Encounter Summary ---
[facility] Address [address] [place] [address] Care Team Providers Care In Service Coordinator Name Role Phone Dorian Ramos SHARI Primary Care Provider + [phone] Reason for Visit * Reason Comments Elevated Blood Pressure Encounter Details Date Type Department Care Team (Late st Contact Info) Description 02/01/2025 11:44 AM EDT - 02/01/2025 1:20 PM EDT Hospital Encounter [facility] OBST[facility]IC EMERGENCY DEPARTMENT [address] [place] [address] Taiwo Snider, DO [address]00 [facility] [address] [place] [address] Discharge Disposition: Home or Self Care Social [...] 12:03 PM EDT Vandana Fu, SUHAS * [place] Suicide Severity Rating Scale (Screener/Recent Self-Report) Question [...] sent through Care Everywhere. * Movement Counts ([place]zech) * High Blood Pressure and (Pre-Eclampsia and Eclampsia): What to Know ([place]zech) documented in this encounter Medications at Time [...] from the original note were not included. [facility] Obstetric History and Physical Referring Provider: [...] IUPC: Resting Tone: Resting Tone by IUPC: [place] Units: Laboratory Results: Lab Results (last 24 hours) Procedure Component Value Units Date/Time Preeclampsia Panel [[id number]] (Abnormal) Collected: 02/01/251216 Specimen: Blood Updated: 02/01/25 1303 Alkaline Phosphatase 148 U/L ALT (SGPT) 18 U/L AST (SGOT) 28 U/L Creatinine 0.75 mg/dL Total Bilirubin <0.2 mg/dL LDH 218 U/L Uric Acid 5.3 mg/dL Protein / Creatinine Ratio, Urine - Urine, Clean Catch [[id number]] Collected: 02/01/25 1223 Specimen: Urine, Clean Catch Updated: 02/01/25 1228 CBC (No Diff) [[id number]] (Abnormal) Collected: 02/01/25 121 Specimen: Blood Updated: [...] 200.0 mg/G Crea 02/01/2025 6:57 PM EDT [facility] Creatinine, Urine 158.9 mg/dL 02/01/2025 6:57 PM EDT [facility] Total Protein, Urine 16.9 mg/dL 02/01/2025 6:57 PM EDT [facility] Urine Urine specimen obtained by clean catch procedure / Unknown Collection / Unknown 02/01/2025 12:23 PM EDT 02/01/2025 12:28 PM EDT Taiwo Snider DO URINE ORDERABLES Final Resu lt [facility]
[address] [place] [address], * (ABNORMAL) Preeclampsia Panel (02/01/2025 12:17 PM EDT) Alkaline Phosphatase 148(H) 39 - 117 U/L 02/01/2025 1:03 PM EDT [facility] ALT (SGPT) 18 1 - 33 U/L 02/01/2025 1:03 PM EDT [facility] AST (SGOT) 28 1 - 32 U/L 02/01/2025 1:03 PM EDT [facility] Creatinine 0.75 0.57 - 1.00 mg/dL 02/01/2025 1:03 PM EDT [facility] Total Bilirubin <0.2 0.0 - 1.2 mg/dL 02/01/2025 1:03 PM EDT [facility] LDH 218(H) 135 - 214 U/L 02/01/2025 1:03 PM EDT [facility] Uric Acid 5.3 2.4 - 5.7 mg/dL 02/01/2025 1:03 PM EDT [facility] Blood Line / Unknown 02/01/2025 12 :17 PM EDT 02/01/2025 12:21 PM EDT us Taiwo Snider DO LAB BLOOD ORDERABLES Final Result [facility]
[address] [place] [address], [place] [phone] * (ABNORMAL) CBC (No Diff) (02/01/2025 12:17 PM EDT) WBC 7.99 3.40 - 10.80 10*3/mm3 02/01/2025 12:25 PM EDT [facility] RBC 3.83 3.77 - 5.28 10*6/mm3 02/01/2025 12:25 PM EDT [facility] Hemoglobin 12.2 12.0 - 15.9 g/dL 02/01/2025 12:25 PM EDT [facility] Hematocrit 34.8 34.0 - 46.6 % 02/01/2025 12:25 PM EDT [facility] MCV 90.9 79.0 - 97.0 fL 02/01/2025 12:25 PM EDT [facility] MCH 31.9 26.6 - 33.0 pg 02/01/2025 12:25 PM EDT [facility] MCHC 35.1 31.5 - 35.7 g/dL 02/01/2025 12:25 PM EDT [facility] RDW 11.9(L) 12.3 - 15.4 % 02/01/2025 12:25 PM EDT [facility] RDW-SD 39.1 37.0 - 54.0 fl 02/01/2025 12:25 PM EDT [facility] MPV 9.7 6.0 - 12.0 fL 02/01/2025 12:25 PM EDT [facility] Platelets 276 140 - 450 10*3/mm3 02/01/2025 12:25 PM EDT [facility] Blood Line / Unknown 02/01/2025 12 :17 PM EDT 02/01/2025 12:21 PM EDT Taiwo Snider DO LAB BLOOD ORDERABLES Final Result [facility]
[address] [place] [address], documented in this encounter Visit Diagnoses Not on filedocumented in this encounter Care Teams In Service Coordinator Relationship Specialty Start Date End Date Dorian Ramos APRN [address] [place] [address] PCP - General Family Medicine 07/24/20 documented as of this encounter
[2025-02-20] VITALS (12 sets, daily range): BP systolic 127–173; BP diastolic 63–101; PULSE 64–88; RESP 18; TEMP 36.8; O2SAT 96; BMI 29.5
--- OUTSIDE RECORDS SUMMARY | 2025-02-20 14:16 | XMS_ITS | Encounter Summary ---
[facility] Address [address] [place] [address] Care Team Providers Care Waste Management Specialist Name Role Phone Dorian Ramos SHARI Primary Care Provider [phone] Encounter Details Date Type Department Care Team [...] 12:03 PM EDT Vandana Fu RN * [place] Suicide Severity Rating Scale (Screener/Recent Self-Report) Question Answer Date of Assessment Author 6. Suicidal Behavior (Lifetime) No 12:03 PM EDT Vandana Fu RN documented as of this encounter Plan of Treatment Not on file documented as of this encounter Visit Diagnoses Not on filedocumented in this encounter Care Teams Waste Management Specialist Relationship Specialty Start Date End Date Dorian Ramos APRN [address] [place] [address] [place] [address] PCP - General Family Medicine 07/24/20 documented as of this encounter
--- OUTSIDE RECORDS SUMMARY | 2025-02-20 14:16 | XMS_ITS | Clinical Summary ---
Author Organization [facility] Address [address] [place] [address] Care Team Providers Care Boiler Inspector Name Role Phone Selwynajay Dorian MCCARTHY Primary Care Provider + [phone] Allergies Active Allergy Reactions Criticality Noted Date [...] pressures today. Review of her records from [place] and indicate that these are clearly elevated [...] twice weekly testing with her doctors in [place]. We will rescan the patient again in [...] - 02/01/2025 1:20 PM EDT Hospital Encounter [facility] [address] [place] [id number] Taiwo Snider, DO Discharge Disposition: Home or Self Care 02/01/2025 11:00 AM EDT Office Visit [facility] MATERNAL [facility]ICINE [address] [facility] [address] [place] [id number] Troy Biswas MD IUGR (intrauterine growth retardation) affecting mother, third trimester, not applicable or unspecified fetus (Primary Dx); , unspecified gestational age 0702/01/2025 10:37 AM EDT - 02/01/2025 11:59 PM EDT Hospital Encounter [facility] [address] [place] [address] Kimo Zuleta DO Maternal care for other known or [...] (NO DIFF) STAT 02/01/2025 12:17 PM EDT [facility] Routine 02/01/2025 11:53 AM [...] 200.0 mg/G Crea 02/01/2025 6:57 PM EDT [facility] Creatinine, Urine 158.9 mg/dL 02/01/2025 6:57 PM EDT [facility] Total Protein, Urine 16.9 mg/dL 02/01/2025 6:57 PM EDT [facility] Urine Urine specimen obtained by clean catch procedure / Unknown Collection / Unknown 02/01/2025 12:23 PM EDT 02/01/2025 12:28 PM EDT Taiwo Snider DO URINE ORDERABLES Final Resu lt [facility]
[address] [place] [address], * (ABNORMAL) Preeclampsia Panel (02/01/2025 12:17 PM [...] ORDERABLES Final Result [facility]
[address] [place] [address], * (ABNORMAL) CBC (No Diff) (02/01/2025 12:17 [...] ORDERABLES Final Result [facility]
[address] [place] [address], * [facility] (02/01/2025 11:53 AM EDT) Anatomical Region Laterality Modality Ultrasound 02/01/2025 11:1 1 AM EDT Narrative 02/01/2025 11:57 AM EDT PAT NAME: CAROLYN BORREGO MED REC#: [id number] DA: [id number] PAT GEND: F PAT TYPE: O EXAM HUANG: [id number] REF PHYS KIMO ZULETA Comparison Studies There [...] EFW (oz) 1 oz EFW by: Hadlock (NEZ-TH-RP-FL) Extended Tibia 49.5 mm 29w 5d <1% Farzana Fibula 50.6 mm 30w 6d 21% Farzana Foot 64.4 mm 10% Chitty Radius 43.2 mm 30w 1d 26% Farzana Ulna 47.3 mm 30w 0d <1% Farzana Cav. septi pel. tr 9.0 mm Dehairing Machine Tender 5.8 mm CM 4.6 mm 1% Nicolaides [...] normal IVC: normal 3-vessel view: Appears normal 2-gdgikd-zlasoie view: Appears normal Rt lung: Appears normal [...] evaluation for growth and Doppler exam at [facility] in 2 weeks. Follow up appointment scheduled here in 4 weeks. Coding ====== Description: 55915-61 Detailed Ultrasound Description: 83866-37 BPP without NST Description: 12190-23 Doppler Umbilical Artery Food Service Substitute: Lucy Pereyra RDMS Physician: Deric Biswas MD, FACOG Electronically signed by: Deric Biswas MD, FACOG at: 11:57 Procedure Note Troy Biswas MD - 02/01/2025 PAT NAME: CAROLYN BORREGO MED REC#: [id number] DA: [id number] PAT GEND: F PAT TYPE: O EXAM HUANG: [id number] REF PHYS KIMO ZULETA Comparison Studies There are no relevant prior studies to which this study is beingcompared Patient Status Outpatient Indication ======== Small for gestational age Maternal Assessment Wwtakv064 cm Height (ft)5 ft Height (in)4 in Rwtnhz15 kg Weight (lb)168 lb BMI28.96 kg/m Method ======= Transabdominal ultrasound examination. View: Adequate view ========= Riggins . Number of fetuses: 1 Dating ====== Method of dating:based on stated ABILIO GA by prior fhwlqvvqyi32 w + 0 d ABILIO by prior assessment:03/15/2025 Ultrasound examination on:02/01/2025 GA by U/S based upon:AC, BPD, Femur, HC GA by U/S32 w + 6 d ABILIO by U/S:03/23/2025 Assigned:based on stated ABILIO, selected on 02/01/2025 Assigned GA34 w + 0 d Assigned ABILIO:03/15/2025 ixuxpy644 d Biometry Standard BPD84.5 mm 34w 0d 48% Hadlock EMY265.1 mm 33w 4d 42% Farzana HC309.4 mm 34w 4d 27% Hadlock Cerebellum tr48.6 mm 36w 1d 72% Hill AC268.7 mm 31w 0d 1% Hadlock Femur61.4 mm 31w 6d 4% Hadlock Atprnyl46.7 mm 31w 6d 9% Farzana HC / AC1.15 EFW1,849 g 31w 3d 5% Hadlock EFW (lb)4 lb EFW (oz)1 oz EFW by:Hadlock (EGI-XZ-RN-FL) Extended Tibia49.5 mm 29w 5d <1% Farzana Dgdpbr06.6 mm 30w 6d 21% Farzana Foot64.4 mm 10% Chitty Bxgcwk04.2 mm 30w 1d 26% Farzana Ulna47.3 mm 30w 0d <1% Farzana Cav. septi pel. tr9.0 mm Vp5.8 mm CM4.6 mm 1% Nicolaides Head / Face / Neck Cephalic index0.82 66% Nicolaides Extremities / Bony Struc FL / BPD0.73 FL / HC0.20 FL / AC0.23 Other Structures [id number] bpm General Evaluation Cardiac activity present. FHR [...] view:Appears normal SVC:normal IVC:normal 3-vessel view:Appears normal 6-usbzqe-kcmgicf view:Appears normal Rt lung:Appears normal Lt lung:normal [...] Structures Uterus / Cervix Cervix:Visualized Approach:Transabdominal Cervical buyjkv95.5 mm Ovaries / Tubes / Adnexa Rt [...] evaluation for growth and Doppler exam at [facility] in2 weeks. Follow up appointment scheduled here in 4 weeks. Coding ====== Description:36569-38 Detailed Ultrasound Description:70913-41 BPP without NST Description:34987-52 Doppler Umbilical Artery Food Service Substitute: Lucy Pereyra RDMS Physician: Deric Biswas MD, FACOG Electronically signed by: Deric Biswas MD, FACOG at: 11:57 us Kimo Zuleta DO IMG US ORDERABLES Final Res ult * (ABNORMAL) POC Protein, Urine, Qualitative, Dipstick (02/01/2025 11:23 AM EDT) Protein, POC Trace(A) Negative mg/dL [facility] Lot Number [id number] [facility] Expiration Date [facility] Urine 02/01/2025 11:2 3 AM EDT us Troy Biswas MD POINT OF CARE TEST ORDERAB LES Final Result [facility]
[address] [place] [address], [place] [phone] from Last 3 Months Insurance Care Teams Boiler Inspector Relationship Specialty Start Date End Date Dorian Ramos APRN [address] [place] [address] [place] [place] [address] PCP - General Family Medicine 07/24/20
--- OUTSIDE RECORDS SUMMARY | 2025-02-20 14:16 | XMS_ITS | Clinical Summary ---
Author Organization [facility] Address [address] [place] [address] Care Team Providers Care Program Writer Name Role Phone Pcp, No Primary Care [...] Tdap) 2013 10/03/1998, 10/04/1995 UKY-Pap Smear 2015 [id number] Vaccine (3 - 2023- season) 2024 08/04/2021, [...] to complete this topic Insurance Care Teams Program Writer Relationship Specialty Start Date End Date Crystal Ben[address] [address] PCP - General Family Medicine 11/20/21
[2025-02-20 14:53] LABS: Microscopic, Urine URINE MICROSCOPIC (MICROSCOPIC)
[2025-02-20 14:58] LABS: Bilirubin,Urine Negative (Negative); Color,Urine YELLOW (Yellow); Glucose,Urine (UA) Negative (Negative); Ketones,Urine Negative (Negative); Leukocyte Esterase,Urine Negative (Negative); PH,Urine 6.0 (5.0-8.5); Protein,Urine 2+ (Negative); Specific Gravity, Urine 1.025 (1.005-1.030); Urobilinogen,Urine 0.2 EU/dl (0.2)
[2025-02-20 15:19] LABS: Bacteria,Urine 1+ /lpf; Squamous Epithelial Cell,Urine 20-50 #/hpf (0-5)
[2025-02-20 15:22] LABS: Hematocrit 32.4 % (37.0-47.0); Hemoglobin 10.8 g/dL (12.2-16.2); Immature Granulocytes % 0.4 %; Mean Corpuscular HGB Conc 33.3 g/dL (31.8-35.4); Mean Corpuscular Hemoglobin 30.7 pg (27.0-31.2); Mean Corpuscular Volume 92.0 fl (81-99); Nucleated Red Blood Cells % 0 %; Platelet Count 249 K/mm3 (142-424); Red Blood Count 3.52 M/mm3 (4.20-5.40); Red Cell Distribution Width-SD 41.2 fL; White Blood Count 7.9 K/mm3 (4.8-10.8)
[2025-02-20 15:30] LABS: Chloride 106 mmol/L (98-107)
[2025-02-20 15:31] LABS: Potassium 3.6 mmoL/L (3.5-5.1); Sodium 131 mmol/L (136-145)
[2025-02-20 15:33] LABS: Activated Partial Thrombo Time 27.4 seconds (22.8-30.6); Blood Urea Nitrogen 19 mg/dl (7-17); Creatinine Clearance Estimated 145 mL/min (50-200); Creatinine,Serum 0.70 mg/dl (0.52-1.04); Estimated Glomerular Filt Rate 98 ml/min (>60); GFR (African American) 119 ML/MIN (>60); INR 0.93 (0.9-1.1); Prothrombin Time 10.4 seconds (10.1-12.5)
[2025-02-20 15:34] LABS: Alanine Aminotransferase 16 U/L (12-78); Anion Gap 5.6 mEq/L (5-15); Aspartate Amino Transferase 27 U/L (14-36); Calcium 9.2 mg/dl (8.4-10.2); Carbon Dioxide 23 mmol/L (22.0-30.0); Glucose 122 mg/dl (74-100)
[2025-02-20 16:04] LABS: Uric Acid 5.3 mg/dl (2.5-6.2)
[2025-02-20] MEDS: LABETALOL 5MG/ML 20ML MDV 20 MG IV (17:15)
--- NOTE | 2025-02-20 17:47 | P.HP_ITS ---
History of Present Illness *Admission Date: 02/20/25 *Reason for visit:: Chronic hypertension with possible -induced h ypertension *History of present illness: She is a 29-year-old 1 para 0 who is 36+5 weeks gestational age. She was seen in the office today for an NST and her blood pressure was in the 150s over 100s. She has been followed with increased blood pressure throughout the latter part of her . As result of the increased blood pressure we have decided to admit her for observation and control of her blood pressure. She is completely asymptomatic and denies scotomata, headaches or epigastric pain. Her laboratory investigations revealed normal platelets, normal LFTs and her uric acid has risen from 4.8-5.3 over the last 5 days. She now has 2+ proteinuria as well. Her most recent blood pressure is 163/87. This was after receiving 20 mg of IV labetalol. We will increase the dosage to 40 mg and see how she does. We will then start oral labetalol. We will consider magnesium sulfate if the blood pressures continue to rise. [facility] Disclaimer: The information contained in this section may have been updated after the patient was seen, as this information can be updated by other users. Medical History Encounter for supervision of other normal , second trimester History of anxiety Surgical History Hx of wisdom tooth extraction Family History No significant family history Social History Smoking Status: Never smoker alcohol intake: never substance use type: denies use current occupational status: employed Travel in the last 8 weeks?: None household members: family housing: house Have you lived/traveled outside US in past 30 days?: No Contact w/someone who lives/traveled outside US past 30 days?: No Exposure to someone with infectious disease in past 14 days?: No Do you have a fever (greater than 100.4 F or 38 C)?: No Have you tested positive for COVID-19?: No Exposed to someone with COVID-19 in past 14 days?: No Do you have a sore throat?: No Do you have a cough?: No Do you have any weakness?: No Do you have any diarrhea?: No Are you experiencing any unusual bleeding?: No Do you have any muscle aches/pain?: No Do you have any abdominal pain?: No Are you experiencing loss of taste or smell?: No Other Medical History Have you received the Flu Vaccine for this season: No Have you received the Pneumonia Vaccine: No Review of Systems Review of Systems Review of systems:: pertinent systems reviewed and negative unless documented below Meds Home Medications and Allergies Home Medications ?Medication ?Instructions ?Recorded ?Confirmed ?Type vits no.126-ferrous fum tab PO DAILY 08/11/24 02/20/25 History 28 mg iron-folic acid 800 mcg tablet (Classic ) fluoxetine 40 mg capsule 40 mg PO DAILY 09/29/2401/31 History New Prescriptions to Start Prescriptions: Allergies Allergy/AdvReac Type Severity Reaction Status Date / Time Penicillins Allergy Mild Rash Verified 02/20/25 13:24 Exam Data for Last 24 hours Vital signs and Labs for Last 24 Hours: Temp Pulse Resp BP Pulse Ox O2 Del Method 98.3 F 77 18 173/101 H 96 Room Air 02/20/25 15:05 02/20/25 15:05 02/20/25 15:05 02/20/25 17:15 02/20/25 15:05 02/20/25 15:05 Laboratory Results - last 24 hr 02/20/25 14:10: Urine Color Yellow, Urine Appearance Clear, Urine pH 6.0, Ur Specific [place] 1.025, Urine Protein 2+ A, Urine Glucose (UA) Negative, Urine Ketones Negative, Urine Blood Negative, Urine Nitrate Negative, Urine Bilirubin Negative, Urine Urobilinogen 0.2, Ur Leukocyte Esterase Negative, Urine RBC None, Urine WBC 3-5, Ur Squamous Epith Cells 20-50, Urine Bacteria 1+ 02/20/25 15:06: WBC 7.9, RBC 3.52 L, Hgb 10.8 L, Hct 32.4 L, MCV 92.0, MCH 30.7, MCHC 33.3, RDW 12.4, Plt Count 249, MPV 9.6, Neut % (Auto) 74.0, Lymph % (Auto) 17.4, [place] % (Auto) 6.7, Eos % (Auto) 1.1, Baso % (Auto) 0.4, Neut # (Auto) 5.8, Lymph # (Auto) 1.4, [place] # (Auto) 0.5, Eos # (Auto) 0.1, Baso # (Auto) 0.0, PT 10.4, INR 0.93, APTT 27.4, Sodium 131 L, Potassium 3.6, Chloride 106, Carbon Dioxide 23, Anion Gap 5.6, BUN 19 H, Creatinine 0.70, Estimated Creat Clear 145, Estimated GFR 98, Est GFR ( Amer) 119, Glucose 122 H, Uric Acid 5.3, Calcium 9.2, AST 27, ALT 16 I & O for Last 24 hours: Intake & Output 02/18/25 02/19/25 02/20/25 02/21/25 11:59 11:59 11:59 11:59 Weight 172 lb Constitutional Constitutional: no acute distress *Routine HEENT Exam Head: Present normocephalic Eye: Present EOMI and PERRL ENT: Present mucous membranes moist *Routine Neck Exam Neck: Present supple; Absent lymphadenopathy *Routine Respiratory Exam Respiratory: Present CTA bilaterally *Routine Cardiovascular Exam Cardiovascular: Present RRR *Routine Abdominal Exam Abdominal: Present soft and normoactive bowel sounds; Absent tenderness *Routine Rectal Exam Rectal:: deferred *Routine Genitalia Exam Genitalia:: deferred *Routine Extremities Exam Extremities: Absent cyanosis, clubbing or edema *Routine Skin Exam Skin: Present warm; Absent rash *Routine Neurological Exam Neurological: Present alert and oriented X3 Assessment and Plan *Assessment and plan (1) Gestational hypertension affecting first : Status: Acute Category: Medical Code(s): O13.9 - Gestational [-induced] hypertension without significant proteinuria, unspecified trimester (2) Asymmetric IUGR affecting , antepartum: Status: Acute Category: Medical Code(s): O36.5990 - Maternal care for other known or suspected poor growth, unspecified trimester, not applicable or unspecified (3) SGA (small for gestational age), , affecting care of mother, antepartum : Status: Acute Qualifiers: Fetus number: single or unspecified fetus Qualified Code(s): O36.5990 - Maternal care for other known or suspected poor growth, unspecified trimester, not applicable or unspecified Category: Medical Code(s): O36.5990 - Maternal care for other known or suspected poor growth, unspecified trimester, not applicable or unspecified Plan 1. Given the fact that her blood pressure has remained increasingly high and she now has some laboratory abnormalities we will admit her for observation. 2. Nonstress test is reactive with good dzjg-cs-zksg variability and good accelerations. 3. We will work on normalizing her blood pressure and plan to deliver her in 48 hours which was previously planned for the SGA baby.
[2025-02-20] MEDS: LABETALOL 5MG/ML 20ML MDV 40 MG IV (17:57)
[2025-02-20 18:20] LABS: Uric Acid 5.2 mg/dl (2.5-6.2)
[2025-02-20] MEDS: ACETAMINOPHEN 325MG TAB 650 MG PO (19:23)
[2025-02-20 21:08] LABS: Fibrinogen 448 mg/dL (229.9-363.5)
[2025-02-21] VITALS (16 sets, daily range): BP systolic 127–189; BP diastolic 62–100; PULSE 62–88; RESP 18; TEMP 36.9; O2SAT 97–100
[2025-02-21] MEDS: ACETAMINOPHEN 325MG TAB 650 MG PO (03:57)
[2025-02-21] MEDS: DEXTROSE 5%-LACTATED RINGERS 1,000 ML 500 ML IV ×2 (08:25→15:08)
[2025-02-21 08:44] LABS: RPR W/RFX Titers Nonreactive (Nonreactive)
[2025-02-21] MEDS: LABETALOL 100MG TABLET 200 MG PO ×2 (08:51→21:37)
[2025-02-21] MEDS: LABETALOL 5MG/ML 20ML MDV 20 MG IV (10:42)
--- NOTE | 2025-02-21 10:56 | P.PN_ITS ---
Subjective *Date: 02/21/25 *Time: 10:56 Interval history: Madison Borrego is a pleasant 29yo at 36w6d gestation who is admitted for induction secondary to severe preeclampsia and growth restriction. Madison has been followed closely for the last few weeks of secondary to these high risk comorbidities. She has endorsed good movement, denies any vaginal bleeding, leakage of fluid, or contractions. Patient endorses a headache yesterday which was managed with 650 mg of p.o. Tylenol and she denies headache, vision changes, right upper quadrant pain this morning Exam Data for Last 24 hours Vital signs and Labs for Last 24 Hours: Temp Pulse Resp BP Pulse Ox O2 Del Method 98.3 F 68 18 137/82 96 Room Air 02/20/25 15:05 02/21/25 05:49 02/20/25 15:05 02/21/25 05:49 02/20/25 15:05 02/20/25 15:05 Laboratory Results - last 24 hr 02/20/25 14:10: Urine Color Yellow, Urine Appearance Clear, Urine pH 6.0, Ur Specific [place] 1.025, Urine Protein 2+ A, Urine Glucose (UA) Negative, Urine Ketones Negative, Urine Blood Negative, Urine Nitrate Negative, Urine Bilirubin Negative, Urine Urobilinogen 0.2, Ur Leukocyte Esterase Negative, Urine RBC None, Urine WBC 3-5, Ur Squamous Epith Cells 20-50, Urine Bacteria 1+, Urine Creatinine 115, Urine Total Protein 111.0 H 02/20/25 15:06: WBC 7.9, RBC 3.52 L, Hgb 10.8 L, Hct 32.4 L, MCV 92.0, MCH 30.7, MCHC 33.3, RDW 12.4, Plt Count 249, MPV 9.6, Neut % (Auto) 74.0, Lymph % (Auto) 17.4, [place] % (Auto) 6.7, Eos % (Auto) 1.1, Baso % (Auto) 0.4, Neut # (Auto) 5.8, Lymph # (Auto) 1.4, [place] # (Auto) 0.5, Eos # (Auto) 0.1, Baso # (Auto) 0.0, PT 10.4, INR 0.93, APTT 27.4, Fibrinogen 448 H, Sodium 131 L, Potassium 3.6, Chloride 106, Carbon Dioxide 23, Anion Gap 5.6, BUN 19 H, Creatinine 0.70, Estimated Creat Clear 145, Estimated GFR 98, Est GFR ( Amer) 119, Glucose 122 H, Uric Acid 5.3 02/20/25 15:06: Uric Acid 5.2, Calcium 9.2, AST 27, ALT 16 02/20/25 18:50: RPR w/Rflx to Titer Nonreactive, Blood Type A Positive, Antibody Screen Positive I & O for Last 24 hours: Intake & Output 02/18/25 02/19/25 02/20/25 02/21/25 23:59 23:59 23:59 23:59 Weight 172 lb Assessment and Plan *Assessment and plan (1) Asymmetric IUGR affecting , antepartum: Status: Acute Category: Medical Code(s): O36.5990 - Maternal care for other known or suspected poor growth, unspecified trimester, not applicable or unspecified (2) Severe preeclampsia: Status: Acute Category: Medical Code(s): O14.10 - Severe pre-eclampsia, unspecified trimester (3) delivery: Status: Acute Category: Medical Code(s): O60.10X0 - labor with delivery, unspecified trimester, not applicable or unspecified (4) Encounter for induction of labor: Status: Acute Category: Medical Code(s): Z34.90 - Encounter for supervision of normal , unspecified, unspecified trimester Plan #FGR #Severe preeclampsia # delivery #36 weeks and 6 days gestation - PIH labs will be obtained every 12 hours. - Currently hemoglobin: 10.8, platelets: 249, creatinine: 0.7, AST/ALT: 27/16 - Will follow severe range blood pressure/preeclampsia protocol with IV labetalol and hydralazine. Casas balloon placed with Cytotec 25 mcg p.o. per protocol
[2025-02-21] MEDS: LABETALOL 20MG/4ML SYRINGE 20 MG IV (11:03)
[2025-02-21] MEDS: BUTORPHANOL TARTRATE 1 MG/ML VIAL IV (11:17)
[2025-02-21] MEDS: LABETALOL 5MG/ML 20ML MDV 40 MG IV (11:40)
--- NOTE | 2025-02-21 12:50 | P.PNANES_ITS ---
[facility] Disclaimer: The information contained in this section may have been updated after the patient was seen, as this information can be updated by other users. Medical History Encounter for supervision of other normal , second trimester History of anxiety Surgical History Hx of wisdom tooth extraction Family History No significant family history Social History Smoking Status: Never smoker alcohol intake: never substance use type: denies use current occupational status: employed Travel in the last 8 weeks?: None household members: family housing: house Have you lived/traveled outside US in past 30 days?: No Contact w/someone who lives/traveled outside US past 30 days?: No Exposure to someone with infectious disease in past 14 days?: No Do you have a fever (greater than 100.4 F or 38 C)?: No Have you tested positive for COVID-19?: No Exposed to someone with COVID-19 in past 14 days?: No Do you have a sore throat?: No Do you have a cough?: No Do you have any weakness?: No Do you have any diarrhea?: No Are you experiencing any unusual bleeding?: No Do you have any muscle aches/pain?: No Do you have any abdominal pain?: No Are you experiencing loss of taste or smell?: No [facility] Anesthesia Checklist Patient Identification Patient Identification: Arm Band Structural Data Admitted From: Inpatient Planned Operative Procedure/s: Labor Epidural Consent for Planned Operative Procedure(s) Verified: Yes Verified Documents: History and Physical Additional verifications Anesthesia Reactions: No Neurological Assessment Level of Consciousness: Awake, Alert and Appropriate Anesthesia Plan Anesthesia Risk discussed: Yes Anesthesia Plan: Verified ASA Class: II Anesthesia Type: Epidural
[2025-02-21] MEDS: LACTATED RINGERS 1000ML 1,000 ML 999 ML IV (16:24)
[2025-02-21] MEDS: OXYTOCIN/RINGERS LACTATE 30 UNITS/500 ML BAG 40 UNITS IV (20:31)
--- NOTE | 2025-02-21 21:33 | EXP.DN ---
Delivery Note Delivery Date:: 02/21/25 Delivery Time:: 20:25 Anesthesia Type: Epidural Was labor medically induced?: Yes Induction method: per misoprostol protocol (mechanical dilation, cervial ripening balloon ) Gestational age (weeks): 36 Infant delivered prior to 39 weeks?: Yes Justification for early elective delivery:: IUGR and Pre-eclampsia Infant Gender: Female at 1 minute: 5 at 5 minutes: 8 Delivery Procedure:: Preoperative diagnosis: 1. at 36W6D gestation, vertex 2. Rh positive 3. GBS negative 4. growth restriction 5. Preeclampsia 6. delivery Postoperative diagnosis: 1. at 36W6D gestation, vertex 2. Rh positive 3. GBS negative 4. growth restriction 5. Preeclampsia 6. delivery EBL: 350mL Specimen: 1. Cord blood 2. Arterial and venous cord gasses Findings: 1. Liveborn viable female : undecided. Apgars 5/8 at 1 and 5 minutes respectively. Weight 5lb 4oz, 2383g. 2. 2nd degree midline perineal laceration Complications: None Procedure: Vacuum assisted vaginal delivery Madison Borrego is a pleasant 29yo who presented with severe range blood pressure last night and was stabilized. Induction was initiated this morning with 25mcg of Cytotec followed by cervical ripening balloon several hours later. Following balloon removal there was a significant amount of bleeding and the patient was noted to be 7cm. Bleeding improved over the remainder of her labor course. She received an epidural for anesthesia. The patient had artificial rupture of membranes revealing clear fluid at 1714. IPUC was placed to better trace contractions. Throughout labor Madison had an intermittent category two strip that would recovered with moderate variabillty. The patient reached complete dilation and had an urge to push at 1934. descent was noted, once complete, without the patient pushing. The was noted to be in the direct OA position. During pushing the infnat had a deceleration and tracing was difficult, FSE was placed. After approximately one hour pushing the infant was having recurrent variable declelerations that were taking longer to recover and the decision was made to proceed with VAVD. She was counseled on the risks, benefits and alternatives. Infant was visible at the perineum without labial separation. Her pelvis was noted to be adequate for vaginal delivery. Her bladder had recently been emptied. The vacuum was applied over the sagittal suture, in front of the posterior fontanelle, and careful attention was given to avoid entrapment of vaginal tissues. With the next contraction the Kiwi Vacuum was applied to 20mmHg of pressure and traction was applied in the downward direction along the pelvic axis. This was done in conjunction with uterine contraction and maternal expulsive effort. Progressive descent was noted with each pull. There was one popoff and the delivered with the second contraction. head was noted and the vacuum device was removed and the shoulders and body delivered without difficulty at 2024. There was a nuchal cord was present, reduced following delivery. The anterior right shoulder delivered, followed by the posterior shoulder without dystocia. The infant was bulb suctioned following delivery. The infant was placed on the maternal abdomen and the umbilical cord was doubly clamped and cut. was taken to the warmer for evaluation by the ranch hand supervisor. Arterial and venous cord gases, and cord blood was collected and sent for routine testing. The placenta delivered with cord traction and suprapubic contertraction. Pitocin was started. The placenta appered calcified and there appeared to be a small <20% abruption. The placenta was very small. The uterus was firm and bleeding was minimal. The perineum, vaginal holly, cervix, and paraurethral area were inspected thoroughly. There was a second-degree midline perineal laceration. The laceration was repaired in the usual fashion using 2-0 Vicryl suture. The laceration was hemostatic. The cervix and vaginal holly were inspected and noted to be hemostatic. This concluded the delivery. The patient was counseled regarding the events of the delivery and repair. The patient tolerated the delivery well. All counts were correct by nursing. Mother and infant were doing well and bonding upon my leaving the delivery room. Laceration:: vaginal Placental Delivery Description: Spontaneous
[2025-02-21] MEDS: BENZOCAINE-MENTHOL SPRAY 56GM CAN TP (21:37)
[2025-02-21] MEDS: IBUPROFEN 400 MG TABLET 800 MG PO (21:47)
[2025-02-21] MEDS: ACETAMINOPHEN 500MG TAB 1000 MG PO (21:47)
--- NOTE | 2025-02-22 01:49 | PC.NURSE ---
02/21/25 1900 - pre delivery QBL initiated 235.0 due to suspected placental abruption. 2245 - post delivery QBL+EBL 429.0 Due to total per delivery and post delivery QBL being 664.0, hemorrhage protocol initiated. 02/22/25 0010 - QBL measured after initiation of protocol, 1 chux added for a total of 688.0. See QBL documentation in pts chart.
[2025-02-22] MEDS: IBUPROFEN 400 MG TABLET 800 MG PO ×3 (05:20→21:49)
[2025-02-22] MEDS: ACETAMINOPHEN 500MG TAB 1000 MG PO ×4 (05:21→21:49)
[2025-02-22 05:22] VITALS: BP 137/65; PULSE 79; RESP 16; TEMP 36.6; O2SAT 98
[2025-02-22 07:57] VITALS: BP 151/76; PULSE 71; RESP 17; TEMP 36.8; O2SAT 96
[2025-02-22 08:44] LABS: Hematocrit 27.3 % (37.0-47.0); Hemoglobin 9.1 g/dL (12.2-16.2); Immature Granulocytes % 0.6 %; Mean Corpuscular HGB Conc 33.3 g/dL (31.8-35.4); Mean Corpuscular Hemoglobin 31.2 pg (27.0-31.2); Mean Corpuscular Volume 93.5 fl (81-99); Nucleated Red Blood Cells % 0 %; Platelet Count 199 K/mm3 (142-424); Red Blood Count 2.92 M/mm3 (4.20-5.40); Red Cell Distribution Width-SD 43.1 fL; White Blood Count 15.5 K/mm3 (4.8-10.8)
[2025-02-22] MEDS: FLUOXETINE 20MG CAPSULE 40 MG PO (08:49)
[2025-02-22 09:14] LABS: Alanine Aminotransferase 35 U/L (12-78); Albumin Level 2.7 g/dl (3.5-5.0); Albumin/Globulin Ratio 1.2 (1.1-1.8); Alkaline Phosphatase 156 U/L (38-126); Anion Gap 6.2 mEq/L (5-15); Aspartate Amino Transferase 59 U/L (14-36); Bilirubin,Total 0.6 mg/dl (0.2-1.3); Blood Urea Nitrogen 14 mg/dl (7-17); Calcium 9.0 mg/dl (8.4-10.2); Carbon Dioxide 24 mmol/L (22.0-30.0); Chloride 108 mmol/L (98-107); Creatinine Clearance Estimated 101 mL/min (50-200); Creatinine,Serum 1.00 mg/dl (0.52-1.04); Estimated Glomerular Filt Rate 65 ml/min (>60); GFR (African American) 79 ML/MIN (>60); Globulin 2.3 g/dL (1.3-3.2); Glucose 103 mg/dl (74-100); Potassium 4.2 mmoL/L (3.5-5.1); Sodium 134 mmol/L (136-145); Total Protein,Serum 5.0 g/dl (6.3-8.2)
--- NOTE | 2025-02-22 16:47 | P.PN_ITS ---
Subjective *Date: 02/22/25 *Time: 16:47 Interval history: Madison Borrego is a 29yo G1, P1 day #1 following a normal spontaneous vaginal delivery at 36 weeks and 6 days gestation. was dated by growth restriction and preeclampsia. Routine delivery and course. She is doing well, sitting up in bed, and visiting with family this morning. -Reports pain is well-controlled -Reports she is tolerating p.o. without nausea or vomiting. -Reports her lochia is scant. -Undecided on contraception -She is breast-feeding her female -Ambulating, voiding difficulty or dysuria. Denies chest pain shortness of breath or pain in her legs. No further complaints at this time. Exam Data for Last 24 hours Vital signs and Labs for Last 24 Hours: Temp Pulse Resp BP Pulse Ox O2 Del Method 98.2 F 71 17 151/76 H 96 Room Air 02/22/25 07:57 02/22/25 07:57 02/22/25 07:57 02/22/25 07:57 02/22/25 07:57 02/22/25 07:57 Laboratory Results - last 24 hr 02/20/25 18:50: Antibody Identification See Comments 02/21/25 20:52: Cord ABG pH 7.31 L 02/21/25 20:54: Cord ABG pH 7.24 L* 02/22/25 08:35: WBC 15.5 H D, RBC 2.92 L, Hgb 9.1 L, Hct 27.3 L, MCV 93.5, MCH 31.2, MCHC 33.3, RDW 12.7, Plt Count 199, MPV 9.3, Neut % (Auto) 82.2 H, Lymph % (Auto) 12.3, [place] % (Auto) 4.3, Eos % (Auto) 0.3, Baso % (Auto) 0.3, Neut # (Auto) 12.7 H, Lymph # (Auto) 1.9, [place] # (Auto) 0.7, Eos # (Auto) 0.0, Baso # (Auto) 0.1, Sodium 134 L, Potassium 4.2, Chloride 108 H, Carbon Dioxide 24, Anion Gap 6.2, BUN 14 D, Creatinine 1.00 D, Estimated Creat Clear 101, Estimated GFR 65, Est GFR ( Amer) 79 D, Glucose 103 H, Calcium 9.0, Total Bilirubin 0.6, AST 59 H D, ALT 35 D, Alkaline Phosphatase 156 H, Total Protein 5.0 L, Albumin 2.7 L, Globulin 2.3, Albumin/Globulin Ratio 1.2 I & O for Last 24 hours: Intake & Output 02/19/25 02/20/25 02/21/25 02/22/25 23:59 23:59 23:59 23:59 Output Total 700 / 700 Balance -700 / -700 Weight 172 lb Narrative: General: patient is alert oriented in no acute distress and responds appropriately to questions. Appears to be in minimal pain. Sitting up in the chair and doing well HEENT: NCAT, EOMI, moist mucous membranes, neck supple with full ROM Cardiovascular: RRR +S1/S2, no murmurs or rubs Pulmonary: Clear to auscultation bilaterally, nonlabored breathing, symmetric chest rise Abdominal: Fundus at the umbilicus, firm, and tenderness appropriate for the period. Extremities: trace edema, no tenderness or cyanosis noted Skin: Normal turgor, intact, warm. Negative for erythema, pallor, petechia, or lesions Neurologic: Negative for sensory or motor deficit Psychiatric: Normal affect, normal thought process, good judgment and insight, no depression or anxious mood appreciated. Assessment and Plan *Assessment and plan (1) delivery: Status: Acute Category: Medical Code(s): O60.10X0 - labor with delivery, unspecified trimester, not applicable or unspecified (2) Severe preeclampsia: Status: Acute Category: Medical Code(s): O14.10 - Severe pre-eclampsia, unspecified trimester (3) Gestational hypertension affecting first : Status: Acute Category: Medical Code(s): O13.9 - Gestational [-induced] hypertension without significant proteinuria, unspecified trimester (4) Asymmetric IUGR affecting , antepartum: Status: Acute Category: Medical Code(s): O36.5990 - Maternal care for other known or suspected poor growth, unspecified trimester, not applicable or unspecified (5) Depression: Status: Acute Category: Medical Code(s): F32.A - Depression, unspecified (6) Encounter for induction of labor: Status: Acute Category: Medical Code(s): Z34.90 - Encounter for supervision of normal , unspecified, unspecified trimester (7) (normal spontaneous vaginal delivery): Status: Acute Category: Medical Code(s): O80 - Encounter for full-term uncomplicated delivery Plan #IUGR #Preeclampsia # delivery Stable. PPD#1 s/p -Doing well. VSS. Serial lochia and fundal checks. - Continue following PIH panel closely for any abnormalities. Continue following blood pressures closely. Discontinue labetalol -Continue with perineal ice packs for discomfort -Hemoglobin: 10.8--> 9.1 - aymptomatic anemia noted. Vitals stable. Continue monitoring. DC with Fe -A+/antibody positive (all common antibodies were ruled out) -, female infant -Contraception: undecided -Follow-up 1-2 weeks for routine visit and blood pressure check -Dispo: home in 3 days pending mother/infant status
[2025-02-22 20:26] VITALS: BP 140/69; PULSE 80; RESP 17; TEMP 37.1; O2SAT 98
[2025-02-23 03:50] VITALS: BP 148/81; PULSE 66; RESP 17; TEMP 36.8; O2SAT 98
[2025-02-23] MEDS: ACETAMINOPHEN 500MG TAB 1000 MG PO ×3 (03:53→17:24)
[2025-02-23 05:46] LABS: Hematocrit 24.5 % (37.0-47.0); Hemoglobin 8.3 g/dL (12.2-16.2); Immature Granulocytes % 0.4 %; Mean Corpuscular HGB Conc 33.9 g/dL (31.8-35.4); Mean Corpuscular Hemoglobin 31.3 pg (27.0-31.2); Mean Corpuscular Volume 92.5 fl (81-99); Nucleated Red Blood Cells % 0 %; Platelet Count 213 K/mm3 (142-424); Red Blood Count 2.65 M/mm3 (4.20-5.40); Red Cell Distribution Width-SD 42.9 fL; White Blood Count 11.4 K/mm3 (4.8-10.8)
[2025-02-23 05:47] LABS: Alanine Aminotransferase 32 U/L (12-78); Albumin Level 2.2 g/dl (3.5-5.0); Albumin/Globulin Ratio 0.8 (1.1-1.8); Alkaline Phosphatase 143 U/L (38-126); Anion Gap 3.9 mEq/L (5-15); Aspartate Amino Transferase 55 U/L (14-36); Blood Urea Nitrogen 14 mg/dl (7-17); Calcium 8.5 mg/dl (8.4-10.2); Carbon Dioxide 27 mmol/L (22.0-30.0); Chloride 108 mmol/L (98-107); Creatinine Clearance Estimated 127 mL/min (50-200); Creatinine,Serum 0.80 mg/dl (0.52-1.04); Estimated Glomerular Filt Rate 84 ml/min (>60); GFR (African American) 102 ML/MIN (>60); Globulin 2.8 g/dL (1.3-3.2); Glucose 73 mg/dl (74-100); Potassium 3.9 mmoL/L (3.5-5.1); Sodium 135 mmol/L (136-145); Total Protein,Serum 5.0 g/dl (6.3-8.2)
[2025-02-23 05:48] LABS: Bilirubin,Total < 0.1 mg/dl (0.2-1.3)
[2025-02-23] MEDS: IBUPROFEN 400 MG TABLET 800 MG PO ×2 (06:10→17:23)
[2025-02-23 08:39] VITALS: BP 141/91; PULSE 88; RESP 16; TEMP 36.8; O2SAT 98
[2025-02-23] MEDS: FLUOXETINE 20MG CAPSULE 40 MG PO (08:45)
[2025-02-23 12:48] VITALS: BP 155/76; PULSE 77; RESP 16; TEMP 36.7; O2SAT 97
--- NOTE | 2025-02-23 14:02 | P.PN_ITS ---
Subjective *Date: 02/23/25 *Time: 14:02 Interval history: Madison Borrego is a 29yo G1, P1 day #2 following a normal spontaneous vaginal delivery at 36 weeks and 6 days gestation. was dated by growth restriction and preeclampsia. Routine delivery and course. She is doing well, sitting up in bed, and visiting with family this morning. -Reports pain is well-controlled -Reports she is tolerating p.o. without nausea or vomiting. -Reports her lochia is scant. -Undecided on contraception -She is breast-feeding her female -Ambulating, voiding difficulty or dysuria. Denies chest pain shortness of breath or pain in her legs. No further complaints at this time. Exam Data for Last 24 hours Vital signs and Labs for Last 24 Hours: Temp Pulse Resp BP Pulse Ox O2 Del Method 98.3 F 88 16 141/91 H 98 Room Air 02/23/25 08:39 02/23/25 08:39 02/23/25 08:39 02/23/25 08:39 02/23/25 08:39 02/23/25 08:39 Laboratory Results - last 24 hr 02/23/25 04:40: WBC 11.4 H D, RBC 2.65 L, Hgb 8.3 L, Hct 24.5 L, MCV 92.5, MCH 31.3 H, MCHC 33.9, RDW 12.9, Plt Count 213, MPV 10.0, Neut % (Auto) 70.1, Lymph % (Auto) 19.5, [place] % (Auto) 7.3, Eos % (Auto) 2.3, Baso % (Auto) 0.4, Neut # (Auto) 8.0 H, Lymph # (Auto) 2.2, [place] # (Auto) 0.8, Eos # (Auto) 0.3, Baso # (Auto) 0.1, Sodium 135 L, Potassium 3.9, Chloride 108 H, Carbon Dioxide 27, Anion Gap 3.9 L, BUN 14, Creatinine 0.80, Estimated Creat Clear 127, Estimated GFR 84, Est GFR ( Amer) 102 D, Glucose 73 L D, Calcium 8.5, Total Bilirubin < 0.1 L, AST 55 H, ALT 32, Alkaline Phosphatase 143 H, Total Protein 5.0 L, Albumin 2.2 L D, Globulin 2.8, Albumin/Globulin Ratio 0.8 L I & O for Last 24 hours: Intake & Output 02/20/25 02/21/25 02/22/25 02/23/25 23:59 23:59 23:59 23:59 Output Total 700 / 700 Balance -700 / -700 Weight 172 lb Narrative: General: patient is alert oriented in no acute distress and responds appropriately to questions. Appears to be in minimal pain. Sitting up in the chair and doing well HEENT: NCAT, EOMI, moist mucous membranes, neck supple with full ROM Cardiovascular: RRR +S1/S2, no murmurs or rubs Pulmonary: Clear to auscultation bilaterally, nonlabored breathing, symmetric chest rise Abdominal: Fundus below the umbilicus, firm, and tenderness appropriate for the period. Extremities: trace edema, no tenderness or cyanosis noted. Plus 2 out of 4 patellar reflexes bilaterally Skin: Normal turgor, intact, warm. Negative for erythema, pallor, petechia, or lesions Neurologic: Negative for sensory or motor deficit Psychiatric: Normal affect, normal thought process, good judgment and insight, no depression or anxious mood appreciated. Assessment and Plan *Assessment and plan (1) delivery: Status: Acute Category: Medical Code(s): O60.10X0 - labor with delivery, unspecified trimester, not applicable or unspecified (2) Severe preeclampsia: Status: Acute Category: Medical Code(s): O14.10 - Severe pre-eclampsia, unspecified trimester (3) Gestational hypertension affecting first : Status: Acute Category: Medical Code(s): O13.9 - Gestational [-induced] hypertension without significant proteinuria, unspecified trimester (4) Asymmetric IUGR affecting , antepartum: Status: Acute Category: Medical Code(s): O36.5990 - Maternal care for other known or suspected poor growth, unspecified trimester, not applicable or unspecified (5) Depression: Status: Acute Category: Medical Code(s): F32.A - Depression, unspecified (6) Encounter for induction of labor: Status: Acute Category: Medical Code(s): Z34.90 - Encounter for supervision of normal , unspecified, unspecified trimester (7) Vacuum-assisted vaginal delivery: Status: Acute Category: Medical Code(s): Z37.9 - Outcome of delivery, unspecified Plan #Anemia - Hemoglobin: 10.8--> 9.1 --> 8.3 - Will give a dose of Venofer on postop day #2 - aymptomatic anemia noted. Vitals stable. Continue monitoring. DC with Fe - A+/antibody positive (all common antibodies were ruled out) #Preeclampsia - Following PIH labs every 24 hours - Blood pressures remained well-controlled - AST slightly elevated, continue to follow # delivery #IUGR Stable. PPD#2 s/p VAVD - Delivered and doing well - Doing well. VSS. Serial lochia and fundal checks. - Continue following PIH panel closely for any abnormalities. Continue following blood pressures closely. Discontinue labetalol - Continue with perineal ice packs for discomfort - , female infant - Contraception: undecided - Follow-up 1-2 weeks for routine visit and blood pressure check - Dispo: home in 3 days pending mother/infant status
[2025-02-23 15:34] VITALS: BP 162/81
[2025-02-23] MEDS: IRON SUCROSE COMPLEX 200 MG in 0.9 % SODIUM CHLORIDE 100 ML 220 MG IV (15:35)
[2025-02-23 15:42] VITALS: BP 151/74; PULSE 74; RESP 16; TEMP 36.9; O2SAT 98
[2025-02-23] MEDS: PRENATAL MULTIVITAMIN W/IRON 1 EACH PO (17:24)
[2025-02-24] MEDS: ACETAMINOPHEN 500MG TAB 1000 MG PO ×4 (02:35→21:41)
--- NOTE | 2025-02-24 08:46 | EXP.PN ---
Subjective *Date: 02/24/25 *Time: 08:58 Interval history: Madison Borrego is a 29yo G1, P1 day #3 following a normal spontaneous vaginal delivery at 36 weeks and 6 days gestation. was dated by growth restriction and preeclampsia. Routine delivery and course. She is doing well, and resting in bed this morning. She does complain of a mild persistent headache since yesterday. States it has come and went and she was attributing it to lack of sleep -Reports pain is well-controlled -Reports she is tolerating p.o. without nausea or vomiting. -Reports her lochia is scant. -Undecided on contraception -She is breast-feeding her female infant -Ambulating, voiding difficulty or dysuria. Denies chest pain shortness of breath or pain in her legs. No further complaints at this time. Exam Data for Last 24 hours Vital signs and Labs for Last 24 Hours: Temp Pulse Resp BP Pulse Ox O2 Del Method 98.5 F 74 16 151/74 H 98 Room Air 02/23/25 15:42 02/23/25 15:42 02/23/25 15:42 02/23/25 15:42 02/23/25 15:42 02/23/25 15:42 I & O for Last 24 hours: Intake & Output 02/21/25 02/22/25 02/23/25 02/24/25 23:59 23:59 23:59 23:59 Output Total 700 / 700 Balance -700 / -700 Narrative: General: patient is alert oriented in no acute distress and responds appropriately to questions. HEENT: NCAT, EOMI, moist mucous membranes, neck supple with full ROM Cardiovascular: RRR +S1/S2, no murmurs or rubs Pulmonary: Clear to auscultation bilaterally, nonlabored breathing, symmetric chest rise Abdominal: Fundus below the umbilicus, firm, and tenderness appropriate for the period. Extremities: trace edema, no tenderness or cyanosis noted. Hyperreflexive patellar reflexes bilaterally Skin: Normal turgor, intact, warm. Negative for erythema, pallor, petechia, or lesions Neurologic: Negative for sensory or motor deficit Psychiatric: Normal affect, normal thought process, good judgment and insight, no depression or anxious mood appreciated. Assessment and Plan *Assessment and plan (1) delivery: Status: Acute Category: Medical Code(s): O60.10X0 - labor with delivery, unspecified trimester, not applicable or unspecified (2) Severe preeclampsia: Status: Acute Category: Medical Code(s): O14.10 - Severe pre-eclampsia, unspecified trimester (3) Gestational hypertension affecting first : Status: Acute Category: Medical Code(s): O13.9 - Gestational [-induced] hypertension without significant proteinuria, unspecified trimester (4) Asymmetric IUGR affecting , antepartum: Status: Acute Category: Medical Code(s): O36.5990 - Maternal care for other known or suspected poor growth, unspecified trimester, not applicable or unspecified (5) Depression: Status: Acute Category: Medical Code(s): F32.A - Depression, unspecified (6) Encounter for induction of labor: Status: Acute Category: Medical Code(s): Z34.90 - Encounter for supervision of normal , unspecified, unspecified trimester (7) Vacuum-assisted vaginal delivery: Status: Acute Category: Medical Code(s): Z37.9 - Outcome of delivery, unspecified Plan #Anemia - Hemoglobin: 10.8--> 9.1 --> 8.3 - Will give a dose of Venofer on postop day #2 - aymptomatic anemia noted. Vitals stable. Continue monitoring. DC with Fe - A+/antibody positive (all common antibodies were ruled out) #Preeclampsia - Following PIH labs every 24 hours - Blood pressures slightly elevated over the last 24 hours with a headache. Decision made to start magnesium for 24 hours and anticipate DC home tomorrow. - AST slightly elevated, continue to follow - PIH labs pending # delivery #IUGR Stable. PPD#3 s/p VAVD - Delivered and doing well - Doing well. VSS. Serial lochia and fundal checks. - Continue following PIH panel closely for any abnormalities. Continue following blood pressures closely. Discontinue labetalol - Continue with perineal ice packs for discomfort - , female infant - Contraception: undecided - Follow-up 1-2 weeks for routine visit and blood pressure check - Dispo: home in 3 days pending mother/infant status
[2025-02-24] MEDS: MAGNESIUM SULFATE IN WATER 20 GM/500 ML IV.SOLN IV ×2 (09:10→19:22)
[2025-02-24] MEDS: MAGNESIUM SULFATE IN WATER 4 GM/50 ML PIGGYBACK IV (09:10)
[2025-02-24] MEDS: LACTATED RINGERS 1000ML 1,000 ML 75 ML IV ×2 (09:15→23:07)
[2025-02-24 09:22] LABS: Magnesium 1.7 mg/dl (1.6-2.3)
[2025-02-24 09:28] LABS: Albumin Level 3.0 g/dl (3.5-5.0); Chloride 104 mmol/L (98-107)
[2025-02-24 09:29] LABS: Hematocrit 25.8 % (37.0-47.0); Hemoglobin 8.8 g/dL (12.2-16.2); Immature Granulocytes % 0.5 %; Mean Corpuscular HGB Conc 34.1 g/dL (31.8-35.4); Mean Corpuscular Hemoglobin 32.0 pg (27.0-31.2); Mean Corpuscular Volume 93.8 fl (81-99); Nucleated Red Blood Cells % 0 %; Platelet Count 260 K/mm3 (142-424); Potassium 3.6 mmoL/L (3.5-5.1); Red Blood Count 2.75 M/mm3 (4.20-5.40); Red Cell Distribution Width-SD 44.2 fL; Sodium 133 mmol/L (136-145); White Blood Count 10.8 K/mm3 (4.8-10.8)
[2025-02-24 09:31] LABS: Alanine Aminotransferase 41 U/L (12-78); Anion Gap 5.6 mEq/L (5-15); Aspartate Amino Transferase 56 U/L (14-36); Blood Urea Nitrogen 10 mg/dl (7-17); Carbon Dioxide 27 mmol/L (22.0-30.0); Creatinine Clearance Estimated 145 mL/min (50-200); Creatinine,Serum 0.70 mg/dl (0.52-1.04); Estimated Glomerular Filt Rate 98 ml/min (>60); GFR (African American) 119 ML/MIN (>60)
[2025-02-24 09:32] LABS: Albumin/Globulin Ratio 1.1 (1.1-1.8); Alkaline Phosphatase 142 U/L (38-126); Calcium 8.9 mg/dl (8.4-10.2); Globulin 2.8 g/dL (1.3-3.2); Glucose 103 mg/dl (74-100); Total Protein,Serum 5.8 g/dl (6.3-8.2)
[2025-02-24 09:40] LABS: Bilirubin,Total 0.1 mg/dl (0.2-1.3)
[2025-02-24] MEDS: FLUOXETINE 20MG CAPSULE 40 MG PO (10:33)
[2025-02-24] MEDS: OXYCODONE 5MG IMMEDIATE RELEASE TABLET 5 MG PO ×3 (10:55→20:22)
[2025-02-24] MEDS: IBUPROFEN 400 MG TABLET 800 MG PO ×2 (12:28→21:42)
[2025-02-24] MEDS: PRENATAL MULTIVITAMIN W/IRON 1 EACH PO (15:22)
[2025-02-24 19:00] VITALS: BP 155/78; PULSE 88
[2025-02-24 19:45] VITALS: BP 158/72
[2025-02-24 20:00] VITALS: BP 139/75; PULSE 93; RESP 16; TEMP 36.7; O2SAT 98
[2025-02-24 20:21] LABS: Albumin Level 3.4 g/dl (3.5-5.0); Chloride 101 mmol/L (98-107); Potassium 4.8 mmoL/L (3.5-5.1); Sodium 129 mmol/L (136-145)
[2025-02-24 20:24] LABS: Alanine Aminotransferase 80 U/L (12-78); Albumin/Globulin Ratio 1.1 (1.1-1.8); Alkaline Phosphatase 153 U/L (38-126); Anion Gap 7.8 mEq/L (5-15); Aspartate Amino Transferase 123 U/L (14-36); Bilirubin,Total 0.6 mg/dl (0.2-1.3); Blood Urea Nitrogen 9 mg/dl (7-17); Carbon Dioxide 25 mmol/L (22.0-30.0); Creatinine Clearance Estimated 169 mL/min (50-200); Creatinine,Serum 0.60 mg/dl (0.52-1.04); Estimated Glomerular Filt Rate 117 ml/min (>60); GFR (African American) 142 ML/MIN (>60); Globulin 3.2 g/dL (1.3-3.2); Total Protein,Serum 6.6 g/dl (6.3-8.2)
[2025-02-24 20:25] LABS: Calcium 7.5 mg/dl (8.4-10.2); Glucose 108 mg/dl (74-100); Magnesium 5.5 mg/dl (1.6-2.3)
[2025-02-24 21:00] VITALS: BP 136/77; PULSE 80
--- NOTE | 2025-02-24 21:11 | US_ITS ---
PROCEDURE INFORMATION: Exam: US Abdomen, Limited; Right Upper Quadrant Exam date and time: 02/24/2025 9:11 PM Age: 29 years old Clinical indication: Other: Elev labs; Post partumx 3 days -- elev liver enzymes-- severe preeclampsia; Additional info: Severe preeclampsia, elevated liver enzymes TECHNIQUE: Imaging protocol: Real time ultrasound of the abdomen with image documentation. Limited exam focused on the right upper quadrant. COMPARISON: US OB BIOPHYSICAL PROFILE 02/15/2025 8:20 AM FINDINGS: Liver: Normal. No masses. Normal portal venous flow. Gallbladder: There is a small amount of gallbladder sludge noted best on series 1, image 22. No gallstones. There is no gallbladder wall thickening. Biliary ducts: Normal. No stones. No dilation. Pancreas: Visualized pancreas is unremarkable. Right kidney: Normal. No mass. No hydronephrosis. An extrarenal pelvis is noted. IMPRESSION: Small amount of gallbladder sludge. No acute findings.
[2025-02-24 21:51] LABS: Hematocrit 29.4 % (37.0-47.0); Immature Granulocytes % 0.8 %; Mean Corpuscular HGB Conc 33.7 g/dL (31.8-35.4); Mean Corpuscular Hemoglobin 31.4 pg (27.0-31.2); Mean Corpuscular Volume 93.3 fl (81-99); Nucleated Red Blood Cells % 0.2 %; Platelet Count 269 K/mm3 (142-424); Red Blood Count 3.15 M/mm3 (4.20-5.40); Red Cell Distribution Width-SD 43.4 fL; White Blood Count 10.0 K/mm3 (4.8-10.8)
[2025-02-24 22:00] VITALS: BP 149/84; PULSE 91
[2025-02-24 22:22] LABS: Hemoglobin 9.9 g/dL (12.2-16.2)
--- NOTE | 2025-02-24 22:31 | P.PN_ITS ---
Subjective *Date: 02/24/25 *Time: 22:31 Interval history: Pt endorses a headache, rates it a 5/10. She denies any vision changes or epigastric/RUQ pain. denies any abdominal tenderness Exam Data for Last 24 hours Vital signs and Labs for Last 24 Hours: Temp Pulse Resp BP Pulse Ox O2 Del Method 98.5 F 74 16 151/74 H 98 Room Air 02/23/25 15:42 02/23/25 15:42 02/23/25 15:42 02/23/25 15:42 02/23/25 15:42 02/23/25 15:42 Laboratory Results - last 24 hr 02/24/25 08:20: WBC 10.8, RBC 2.75 L, Hgb 8.8 L, Hct 25.8 L, MCV 93.8, MCH 32.0 H, MCHC 34.1, RDW 13.0, Plt Count 260, MPV 9.5, Neut % (Auto) 83.0 H, Lymph % (Auto) 11.1, [place] % (Auto) 3.4, Eos % (Auto) 1.7, Baso % (Auto) 0.3, Neut # (Auto) 9.0 H, Lymph # (Auto) 1.2, [place] # (Auto) 0.4, Eos # (Auto) 0.2, Baso # (Auto) 0.0, Sodium 133 L, Potassium 3.6, Chloride 104, Carbon Dioxide 27, Anion Gap 5.6, BUN 10 D, Creatinine 0.70, Estimated Creat Clear 145, Estimated GFR 98, Est GFR ( Amer) 119, Glucose 103 H, Calcium 8.9, Magnesium 1.7, Total Bilirubin 0.1 L, AST 56 H, ALT 41 D, Alkaline Phosphatase 142 H, Total Protein 5.8 L, Albumin 3.0 L D, Globulin 2.8, Albumin/Globulin Ratio 1.1 02/24/25 20:00: Sodium 129 L, Potassium 4.8 D, Chloride 101, Carbon Dioxide 25, Anion Gap 7.8, BUN 9, Creatinine 0.60, Estimated Creat Clear 169, Estimated GFR 117, Est GFR ( Amer) 142, Glucose 108 H, Calcium 7.5 L, Magnesium 5.5 H D , Total Bilirubin 0.6, AST 123 H D, ALT 80 H D, Alkaline Phosphatase 153 H, Lactate Dehydrogenase 517, Total Protein 6.6, Albumin 3.4 L D, Globulin 3.2, Albumin/Globulin Ratio 1.1 02/24/25 21:34: WBC 10.0, RBC 3.15 L, Hgb 9.9 L D, Hct 29.4 L, MCV 93.3, MCH 31.4 H, MCHC 33.7, RDW 13.1, Plt Count 269, MPV 9.2, Neut % (Auto) 74.2, Lymph % (Auto) 15.6, [place] % (Auto) 6.4, Eos % (Auto) 2.7, Baso % (Auto) 0.3, Neut # (Auto) 7.5, Lymph # (Auto) 1.6, [place] # (Auto) 0.6, Eos # (Auto) 0.3, Baso # (Auto) 0.0 I & O for Last 24 hours: Intake & Output 02/21/25 02/22/25 02/23/25 02/24/25 23:59 23:59 23:59 23:59 Output Total 700 / 700 4050 / 4050 Balance -700 / -700 -4050 / -4050 Assessment and Plan *Assessment and plan (1) delivery: Status: Acute Category: Medical Code(s): O60.10X0 - labor with delivery, unspecified trimester, not applicable or unspecified (2) Severe preeclampsia: Status: Acute Category: Medical Code(s): O14.10 - Severe pre-eclampsia, unspecified trimester (3) Gestational hypertension affecting first : Status: Acute Category: Medical Code(s): O13.9 - Gestational [-induced] hypertension without significant proteinuria, unspecified trimester (4) Asymmetric IUGR affecting , antepartum: Status: Acute Category: Medical Code(s): O36.5990 - Maternal care for other known or suspected poor growth, unspecified trimester, not applicable or unspecified (5) Depression: Status: Acute Category: Medical Code(s): F32.A - Depression, unspecified (6) Encounter for induction of labor: Status: Acute Category: Medical Code(s): Z34.90 - Encounter for supervision of normal , unspecified, unspecified trimester (7) Vacuum-assisted vaginal delivery: Status: Acute Category: Medical Code(s): Z37.9 - Outcome of delivery, unspecified Plan #Anemia - Hemoglobin: 10.8--> 9.1 --> 8.3 - Will give a dose of Venofer on postop day #2 - aymptomatic anemia noted. Vitals stable. Continue monitoring. DC with Fe - A+/antibody positive (all common antibodies were ruled out) #Preeclampsia - Transition to PIH labs [id number] - Blood pressures slightly elevated over the last 24 hours with a headache. Decision made to start magnesium at 0900AM - AST slightly elevated, continue to follow - Pain medication today (primarily treating cramping and a headache- pt states WEISS occurred with start of magnesium) the patient has had 1000 mg of acetaminophen at 0235, 1032, 1522, and 2141. I discontinued the acetaminophen secondary to increasing LFTs. - With the abnormal LFTs and liver US was ordered along with an intensive evaluation for HELLP which with prelim reads was negative. We will continue following all of her labs. Consider CT scan if LFTs continue to increase - Labs are ordered for the 12 hour citlalli - Labs to be ordered at the 6hour citlalli: CBC, CMP, LDH (0100 on 02/25/25) - Additional pain meds include: Ibuprofen: 800mg at 0837, 1228, and 2142 and Oxycodone 5mg at 1055, 1622, and 2022 # delivery #IUGR Stable. PPD#3 s/p VAVD - Delivered and doing well - Doing well. VSS. Serial lochia and fundal checks. - Continue following PIH panel closely for any abnormalities. Continue following blood pressures closely. Discontinue labetalol - Continue with perineal ice packs for discomfort - , female - Contraception: undecided - Follow-up 1-2 weeks for routine visit and blood pressure check - Dispo: home in 3 days pending mother/ status
[2025-02-24 23:00] VITALS: BP 144/97; PULSE 91
[2025-02-24 23:29] LABS: Activated Partial Thrombo Time 27.1 seconds (22.8-30.6); INR 0.86 (0.9-1.1); Prothrombin Time 9.7 seconds (10.1-12.5)
[2025-02-25] VITALS (12 sets, daily range): BP systolic 123–170; BP diastolic 59–97; PULSE 81–95; RESP 16–18; TEMP 36.8–36.9; O2SAT 98–99
[2025-02-25 01:25] LABS: Hematocrit 29.1 % (37.0-47.0); Hemoglobin 9.8 g/dL (12.2-16.2); Immature Granulocytes % 0.5 %; Mean Corpuscular HGB Conc 33.7 g/dL (31.8-35.4); Mean Corpuscular Hemoglobin 31.3 pg (27.0-31.2); Mean Corpuscular Volume 93.0 fl (81-99); Nucleated Red Blood Cells % 0.2 %; Platelet Count 289 K/mm3 (142-424); Red Blood Count 3.13 M/mm3 (4.20-5.40); Red Cell Distribution Width-SD 43.2 fL; White Blood Count 11.5 K/mm3 (4.8-10.8)
[2025-02-25 01:42] LABS: Magnesium 6.3 mg/dl (1.6-2.3)
[2025-02-25 03:17] LABS: Albumin Level 3.2 g/dl (3.5-5.0); Chloride 100 mmol/L (98-107); Potassium 3.8 mmoL/L (3.5-5.1); Sodium 129 mmol/L (136-145)
[2025-02-25 03:20] LABS: Alanine Aminotransferase 114 U/L (12-78); Albumin/Globulin Ratio 1.1 (1.1-1.8); Alkaline Phosphatase 187 U/L (38-126); Anion Gap 7.8 mEq/L (5-15); Aspartate Amino Transferase 149 U/L (14-36); Bilirubin,Total 0.2 mg/dl (0.2-1.3); Blood Urea Nitrogen 7 mg/dl (7-17); Calcium 7.0 mg/dl (8.4-10.2); Carbon Dioxide 25 mmol/L (22.0-30.0); Creatinine Clearance Estimated 169 mL/min (50-200); Creatinine,Serum 0.60 mg/dl (0.52-1.04); Estimated Glomerular Filt Rate 117 ml/min (>60); GFR (African American) 142 ML/MIN (>60); Globulin 3.0 g/dL (1.3-3.2); Glucose 98 mg/dl (74-100); Total Protein,Serum 6.2 g/dl (6.3-8.2)
[2025-02-25] MEDS: IBUPROFEN 400 MG TABLET 800 MG PO ×3 (06:15→21:31)
[2025-02-25] MEDS: MAGNESIUM SULFATE IN WATER 20 GM/500 ML IV.SOLN IV (06:16)
[2025-02-25 07:25] LABS: Hematocrit 29.6 % (37.0-47.0); Hemoglobin 9.6 g/dL (12.2-16.2); Immature Granulocytes % 0.4 %; Mean Corpuscular HGB Conc 32.4 g/dL (31.8-35.4); Mean Corpuscular Hemoglobin 30.4 pg (27.0-31.2); Mean Corpuscular Volume 93.7 fl (81-99); Nucleated Red Blood Cells % 0 %; Platelet Count 305 K/mm3 (142-424); Red Blood Count 3.16 M/mm3 (4.20-5.40); Red Cell Distribution Width-SD 44.3 fL; White Blood Count 10.5 K/mm3 (4.8-10.8)
[2025-02-25 07:46] LABS: Alanine Aminotransferase 157 U/L (12-78); Albumin Level 2.9 g/dl (3.5-5.0); Albumin/Globulin Ratio 0.9 (1.1-1.8); Alkaline Phosphatase 199 U/L (38-126); Anion Gap 8.8 mEq/L (5-15); Aspartate Amino Transferase 208 U/L (14-36); Bilirubin,Total 0.2 mg/dl (0.2-1.3); Blood Urea Nitrogen 6 mg/dl (7-17); Calcium 6.9 mg/dl (8.4-10.2); Carbon Dioxide 26 mmol/L (22.0-30.0); Chloride 101 mmol/L (98-107); Creatinine Clearance Estimated 145 mL/min (50-200); Creatinine,Serum 0.70 mg/dl (0.52-1.04); Estimated Glomerular Filt Rate 98 ml/min (>60); GFR (African American) 119 ML/MIN (>60); Globulin 3.2 g/dL (1.3-3.2); Glucose 90 mg/dl (74-100); Potassium 3.8 mmoL/L (3.5-5.1); Sodium 132 mmol/L (136-145); Total Protein,Serum 6.1 g/dl (6.3-8.2)
[2025-02-25 08:01] LABS: Magnesium 7.1 mg/dl (1.6-2.3)
[2025-02-25 08:24] LABS: Fibrinogen 572 mg/dL (229.9-363.5)
[2025-02-25] MEDS: FLUOXETINE 20MG CAPSULE 40 MG PO (09:28)
--- NOTE | 2025-02-25 12:41 | P.PN_ITS ---
Subjective *Date: 02/25/25 *Time: 12:41 Interval history: Madison Borrego is a 29yo G1, P1 day #4 following a normal spontaneous vaginal delivery at 36 weeks and 6 days gestation. was dated by growth restriction and preeclampsia. Delivery was complicated by a VAVD and course has been complicated by elevated LFTs. She is doing well, and resting in bed this morning. She does complain of a mild persistent headache that lasted most of the day yesterday, but has since improved. She denies any vision changes or epigastric/RUQ pain. denies any abdominal tenderness -Reports pain is well-controlled -Reports she is tolerating p.o. without nausea or vomiting. -Reports her lochia is scant. -Undecided on contraception -She is breast-feeding her female -Ambulating, voiding difficulty or dysuria. Denies chest pain shortness of breath or pain in her legs. No further complaints at this time. Exam Data for Last 24 hours Vital signs and Labs for Last 24 Hours: Temp Pulse Resp BP Pulse Ox O2 Del Method 98.5 F 95 H 16 129/73 98 Room Air 02/25/25 04:00 02/25/25 05:30 02/25/25 04:00 02/25/25 05:30 02/25/25 04:00 02/25/25 04:00 Laboratory Results - last 24 hr 02/24/25 20:00: Sodium 129 L, Potassium 4.8 D, Chloride 101, Carbon Dioxide 25, Anion Gap 7.8, BUN 9, Creatinine 0.60, Estimated Creat Clear 169, Estimated GFR 117, Est GFR ( Amer) 142, Glucose 108 H, Calcium 7.5 L, Magnesium 5.5 H D , Total Bilirubin 0.6, AST 123 H D, ALT 80 H D, Alkaline Phosphatase 153 H, L actate Dehydrogenase 517, Total Protein 6.6, Albumin 3.4 L D, Globulin 3.2, Albumin/Globulin Ratio 1.1 02/24/25 21:34: WBC 10.0, RBC 3.15 L, Hgb 9.9 L D, Hct 29.4 L, MCV 93.3, MCH 31.4 H, MCHC 33.7, RDW 13.1, Plt Count 269, MPV 9.2, Neut % (Auto) 74.2, Lymph % (Auto) 15.6, [place] % (Auto) 6.4, Eos % (Auto) 2.7, Baso % (Auto) 0.3, Neut # (Auto) 7.5, Lymph # (Auto) 1.6, [place] # (Auto) 0.6, Eos # (Auto) 0.3, Baso # (Auto) 0.0 02/24/25 23:00: PT 9.7 L, INR 0.86 L, APTT 27.1 02/25/25 01:04: WBC 11.5 H, RBC 3.13 L, Hgb 9.8 L, Hct 29.1 L, MCV 93.0, MCH 31.3 H, MCHC 33.7, RDW 13.0, Plt Count 289, MPV 9.2, Neut % (Auto) 80.8 H, Lymph % (Auto) 11.6, [place] % (Auto) 4.9, Eos % (Auto) 1.8, Baso % (Auto) 0.4, Neut # (Auto) 9.3 H, Lymph # (Auto) 1.3, [place] # (Auto) 0.6, Eos # (Auto) 0.2, Baso # (Auto) 0.1, Sodium 129 L, Potassium 3.8 D, Chloride 100, Carbon Dioxide 25, Anion Gap 7.8, BUN 7, Creatinine 0.60, Estimated Creat Clear 169, Estimated GFR 117, Est GFR ( Amer) 142, Glucose 98, Calcium 7.0 L, Magnesium 6.3 H D, Total Bilirubin 0.2, AST 149 H, ALT 114 H D, Alkaline Phosphatase 187 H, Lactate Dehydrogenase 374 D, Total Protein 6.2 L, Albumin 3.2 L, Globulin 3.0, [place] min/Globulin Ratio 1.1 02/25/25 06:43: WBC 10.5, RBC 3.16 L, Hgb 9.6 L, Hct 29.6 L, MCV 93.7, MCH 30.4, MCHC 32.4, RDW 13.0, Plt Count 305, MPV 9.1, Neut % (Auto) 82.3 H, Lymph % (Auto) 11.9, [place] % (Auto) 3.7, Eos % (Auto) 1.2, Baso % (Auto) 0.5, Neut # (Auto) 8.6 H, Lymph # (Auto) 1.2, [place] # (Auto) 0.4, Eos # (Auto) 0.1, Baso # (Auto) 0.1, Fibrinogen 572 H, Sodium 132 L, Potassium 3.8, Chloride 101, Carbon Dioxide 26, Anion Gap 8.8, BUN 6 L, Creatinine 0.70, Estimated Creat Clear 145, Estimated GFR 98, Est GFR ( Amer) 119, Glucose 90, Calcium 6.9 L, Magnesium 7.1 H D, Total Bilirubin 0.2, AST 208 H D, ALT 157 H D, Alkaline Phosphatase 199 H, Lactate Dehydrogenase 424, Total Protein 6.1 L, Albumin 2.9 L , Globulin 3.2, Albumin/Globulin Ratio 0.9 L I & O for Last 24 hours: Intake & Output 02/22/25 02/23/25 02/24/25 02/25/25 23:59 23:59 23:59 23:59 Output Total 4050 / 4050 Balance -4050 / -4050 Narrative: General: patient is alert oriented in no acute distress and responds appropriately to questions. Cardiovascular: RRR +S1/S2, no murmurs or rubs. Severe range hypertension Pulmonary: Clear to auscultation bilaterally, nonlabored breathing, symmetric chest rise Abdominal: Fundus below the umbilicus, firm, and tenderness appropriate for the period. Extremities: trace edema, no tenderness or cyanosis noted. hyperreflexive patellar reflexes bilaterally Skin: Normal turgor, intact, warm. Negative for erythema, pallor, petechia, or lesions Neurologic: Negative for sensory or motor deficit Psychiatric: Normal affect, normal thought process, good judgment and insight, no depression or anxious mood appreciated. Assessment and Plan *Assessment and plan (1) delivery: Status: Acute Category: Medical Code(s): O60.10X0 - labor with delivery, unspecified trimester, not applicable or unspecified (2) Severe preeclampsia: Status: Acute Category: Medical Code(s): O14.10 - Severe pre-eclampsia, unspecified trimester (3) Gestational hypertension affecting first : Status: Acute Category: Medical Code(s): O13.9 - Gestational [-induced] hypertension without significant proteinuria, unspecified trimester (4) Asymmetric IUGR affecting , antepartum: Status: Acute Category: Medical Code(s): O36.5990 - Maternal care for other known or suspected poor growth, unspecified trimester, not applicable or unspecified (5) Depression: Status: Acute Category: Medical Code(s): F32.A - Depression, unspecified (6) Encounter for induction of labor: Status: Acute Category: Medical Code(s): Z34.90 - Encounter for supervision of normal , unspecified, unspecified trimester (7) Vacuum-assisted vaginal delivery: Status: Acute Category: Medical Code(s): Z37.9 - Outcome of delivery, unspecified Plan #Anemia - Hemoglobin: 10.8--> 9.1 --> 8.3 --> 9.6 - Will give a dose of Venofer on postop day #2 - aymptomatic anemia noted. Vitals stable. Continue monitoring. DC with Fe - A+/antibody positive (all common antibodies were ruled out) #Preeclampsia - Transition to PIH labs [id number] - Blood pressures slightly elevated over the last 24 hours with a headache. s/p 24hours of magnesium at 0900AM 02/25/25 - AST slightly elevated, continue to follow - Pain medication today (primarily treating cramping and a headache- pt states WEISS occurred with start of magnesium) the patient has had 1000 mg of acetaminophen at 0235, 1032, 1522, and 2141. I discontinued the acetaminophen secondary to increasing LFTs. - With the abnormal LFTs and liver US was ordered along with an intensive evaluation for HELLP which with prelim reads was negative. We will continue following all of her labs. Consider CT scan if LFTs continue to increase - Labs are ordered for the 12 hour citlalli - Labs to be ordered at the 6hour citlalli: CBC, CMP, LDH (0100 on 02/25/25) - Additional pain meds include: Ibuprofen: 800mg at 0837, 1228, and 2142 and Oxycodone 5mg at 1055, 1622, and 2022 02/25/25 - Weiss improved after DC magnesium - BP elevated to SR, LAbetalol protocol started - Repeat PIH labs at 1900 - Continue to hold aceatminophen - Discuss starting PO meds for HTN management # delivery #IUGR Stable. PPD#4 s/p VAVD - Delivered and doing well - Doing well. VSS. Serial lochia and fundal checks. - Continue following PIH panel closely for any abnormalities. Continue following blood pressures closely. Discontinue labetalol - Continue with perineal ice packs for discomfort - , female - Contraception: undecided - Follow-up 1-2 weeks for routine visit and blood pressure check - Dispo: home wednesday pending mother/ status
[2025-02-25] MEDS: LABETALOL 5MG/ML 20ML MDV 20 MG IV ×2 (13:00→19:43)
[2025-02-25] MEDS: PRENATAL MULTIVITAMIN W/IRON 1 EACH PO (18:19)
[2025-02-25 19:02] LABS: Hematocrit 27.3 % (37.0-47.0); Hemoglobin 9.0 g/dL (12.2-16.2); Immature Granulocytes % 0.3 %; Mean Corpuscular HGB Conc 33.0 g/dL (31.8-35.4); Mean Corpuscular Hemoglobin 31.5 pg (27.0-31.2); Mean Corpuscular Volume 95.5 fl (81-99); Nucleated Red Blood Cells % 0 %; Platelet Count 302 K/mm3 (142-424); Red Blood Count 2.86 M/mm3 (4.20-5.40); Red Cell Distribution Width-SD 45.0 fL; White Blood Count 9.4 K/mm3 (4.8-10.8)
[2025-02-25 19:09] LABS: Albumin Level 3.3 g/dl (3.5-5.0); Chloride 102 mmol/L (98-107); Potassium 3.5 mmoL/L (3.5-5.1); Sodium 132 mmol/L (136-145)
[2025-02-25 19:12] LABS: Alanine Aminotransferase 202 U/L (12-78); Alkaline Phosphatase 149 U/L (38-126); Anion Gap 7.5 mEq/L (5-15); Aspartate Amino Transferase 221 U/L (14-36); Blood Urea Nitrogen 10 mg/dl (7-17); Calcium 7.0 mg/dl (8.4-10.2); Carbon Dioxide 26 mmol/L (22.0-30.0); Creatinine Clearance Estimated 145 mL/min (50-200); Creatinine,Serum 0.70 mg/dl (0.52-1.04); Estimated Glomerular Filt Rate 98 ml/min (>60); GFR (African American) 119 ML/MIN (>60); Glucose 124 mg/dl (74-100); Total Protein,Serum 6.1 g/dl (6.3-8.2)
[2025-02-25 19:16] LABS: Albumin/Globulin Ratio 1.2 (1.1-1.8); Bilirubin,Total < 0.1 mg/dl (0.2-1.3); Globulin 2.8 g/dL (1.3-3.2)
[2025-02-25] MEDS: LABETALOL 5MG/ML 20ML MDV 40 MG IV (20:30)
[2025-02-25] MEDS: LABETALOL 100MG TABLET 300 MG PO (20:36)
[2025-02-25] MEDS: LANOLIN CREAM 40GM TP (21:32)
[2025-02-26] MEDS: LABETALOL 100MG TABLET 300 MG PO (08:27)
[2025-02-26] MEDS: FLUOXETINE 20MG CAPSULE 40 MG PO (08:28)
[2025-02-26 08:32] LABS: Alanine Aminotransferase 167 U/L (12-78); Albumin Level 2.8 g/dl (3.5-5.0); Albumin/Globulin Ratio 1.3 (1.1-1.8); Alkaline Phosphatase 135 U/L (38-126); Anion Gap 6.0 mEq/L (5-15); Aspartate Amino Transferase 134 U/L (14-36); Bilirubin,Total < 0.1 mg/dl (0.2-1.3); Blood Urea Nitrogen 9 mg/dl (7-17); Calcium 7.8 mg/dl (8.4-10.2); Carbon Dioxide 26 mmol/L (22.0-30.0); Chloride 108 mmol/L (98-107); Creatinine Clearance Estimated 113 mL/min (50-200); Creatinine,Serum 0.90 mg/dl (0.52-1.04); Estimated Glomerular Filt Rate 74 ml/min (>60); GFR (African American) 89 ML/MIN (>60); Globulin 2.1 g/dL (1.3-3.2); Glucose 75 mg/dl (74-100); Potassium 4.0 mmoL/L (3.5-5.1); Sodium 136 mmol/L (136-145); Total Protein,Serum 4.9 g/dl (6.3-8.2)
--- NOTE | 2025-02-26 09:57 | EXP.DC.SUM ---
General Admission date:: 02/20/25 Discharge date: 02/26/25 HPI HPI HPI: She is a 29-year-old 1 para 0 who is 36+5 weeks gestational age. She was seen in the office today for an NST and her blood pressure was in the 150s over 100s. She has been followed with increased blood pressure throughout the latter part of her . As result of the increased blood pressure we have decided to admit her for observation and control of her blood pressure. She is completely asymptomatic and denies scotomata, headaches or epigastric pain. Her laboratory investigations revealed normal platelets, normal LFTs and her uric acid has risen from 4.8-5.3 over the last 5 days. She now has 2+ proteinuria as well. Her most recent blood pressure is 163/87. This was after receiving 20 mg of IV labetalol. We will increase the dosage to 40 mg and see how she does. We will then start oral labetalol. We will consider magnesium sulfate if the blood pressures continue to rise. Hospital Course Hospital Course Hospital Course: <del>H</del>rosa Borrego is a pleasant 29yo who presented with severe range blood pressure last night and was stabilized. Induction was initiated this morning with 25mcg of Cytotec followed by cervical ripening balloon several hours later. Following balloon removal there was a significant amount of bleeding and the patient was noted to be 7cm. Bleeding improved over the remainder of her labor course. She received an epidural for anesthesia. The patient had artificial rupture of membranes revealing clear fluid at 1714. IPUC was placed to better trace contractions. Throughout labor Madison had an intermittent category two strip that would recovered with moderate variabillty. The patient reached complete dilation and had an urge to push at 1934. descent was noted, once complete, without the patient pushing. The infant was noted to be in the direct OA position. During pushing the infnat had a deceleration and tracing was difficult, FSE was placed. After approximately one hour pushing the was having recurrent variable declelerations that were taking longer to recover and the decision was made to proceed with VAVD. She was counseled on the risks, benefits and alternatives. was visible at the perineum without labial separation. Her pelvis was noted to be adequate for vaginal delivery. Her bladder had recently been emptied. The vacuum was applied over the sagittal suture, in front of the posterior fontanelle, and careful attention was given to avoid entrapment of vaginal tissues. With the next contraction the [place] Vacuum was applied to 20mmHg of pressure and traction was applied in the downward direction along the pelvic axis. This was done in conjunction with uterine contraction and maternal expulsive effort. Progressive descent was noted with each pull. There was one popoff and the delivered with the second contraction. head was noted and the vacuum device was removed and the shoulders and body delivered without difficulty at 2024. There was a nuchal cord was present, reduced following delivery. The anterior right shoulder delivered, followed by the posterior shoulder without dystocia. The infant was bulb suctioned following delivery. The was placed on the maternal abdomen and the umbilical cord was doubly clamped and cut. Infant was taken to the warmer for evaluation by the quarter supervisor. Arterial and venous cord gases, and cord blood was collected and sent for routine testing. The placenta delivered with cord traction and suprapubic contertraction. Pitocin was started. The placenta appered calcified and there appeared to be a small <20% abruption. The placenta was very small. The uterus was firm and bleeding was minimal. The perineum, vaginal holly, cervix, and paraurethral area were inspected thoroughly. There was a second-degree midline perineal laceration. The laceration was repaired in the usual fashion using 2-0 Vicryl suture. The laceration was hemostatic. The cervix and vaginal holly were inspected and noted to be hemostatic. This concluded the delivery. The patient was counseled regarding the events of the delivery and repair. The patient tolerated the delivery well. All counts were correct by nursing. Mother and infant were doing well and bonding upon my leaving the delivery room. Her blood pressures have been elevated and she has been taking labetalol 300 mg twice daily. She received IV magnesium sulfate for 24 hours. She denies any headache or scotomata. Her liver function tests were elevated in the 200s range. This morning they have come back into the 130 range. She is on a downward trend with her liver function test. She will be discharged home this morning to follow-up in 3 days time for a blood pressure check. We will continue with the labetalol 300 mg 3 times daily. She will continue with her Prozac 40 mg daily. She is breast-feeding. She was given the usual instructions with respect to limiting her activity and signs of worsening blood pressure. Her condition on discharge is stable and improved. Exam Data for Last 24 hours Vital signs and Labs for Last 24 Hours: Temp Pulse Resp BP Pulse Ox O2 Del Method 98.5 F 95 H 16 139/59 L 98 Room Air 02/25/25 04:00 02/25/25 05:30 02/25/25 04:00 02/25/25 21:00 02/25/25 04:00 02/25/25 04:00 Laboratory Results - last 24 hr 02/25/25 18:50: WBC 9.4, RBC 2.86 L, Hgb 9.0 L, Hct 27.3 L, MCV 95.5, MCH 31.5 H, MCHC 33.0, RDW 13.1, Plt Count 302, MPV 9.1, Neut % (Auto) 77.1, Lymph % (Auto) 14.4, [place] % (Auto) 6.1, Eos % (Auto) 1.8, Baso % (Auto) 0.3, Neut # (Auto) 7.2, Lymph # (Auto) 1.4, [place] # (Auto) 0.6, Eos # (Auto) 0.2, Baso # (Auto) 0.0, Sodium 132 L, Potassium 3.5, Chloride 102, Carbon Dioxide 26, Anion Gap 7.5, BUN 10 D, Creatinine 0.70, Estimated Creat Clear 145, Estimated GFR 98, Est GFR ( Amer) 119, Glucose 124 H D, Calcium 7.0 L, Total Bilirubin < 0.1 L, AST 221 H, ALT 202 H D, Alkaline Phosphatase 149 H, Lactate Dehydrogenase 424, Total Protein 6.1 L, Albumin 3.3 L D, Globulin 2.8, Albumin/Globulin Ratio 1.2 02/26/25 06:25: Sodium 136, Potassium 4.0, Chloride 108 H, Carbon Dioxide 26, Anion Gap 6.0, BUN 9, Creatinine 0.90 D, Estimated Creat Clear 113, Estimated GFR 74, Est GFR ( Amer) 89 D, Glucose 75 D, Calcium 7.8 L, Total Bilirubin < 0.1 L, AST 134 H D, ALT 167 H, Alkaline Phosphatase 135 H, Total Protein 4.9 L, Albumin 2.8 L D, Globulin 2.1, Albumin/Globulin Ratio 1.3, LDL Cholesterol Direct 62.09 L I & O for Last 24 hours: Intake & Output 02/23/25 02/24/25 02/25/25 02/26/25 11:59 11:59 11:59 11:59 Output Total 4050 / 4050 950 / 950 Balance -4050 / -4050 -950 / -950 Results Data Completed and Pending Labs on day of discharge: Labs from last 24 hours 02/26/25 02/25/25 06:25 18:50 WBC 9.4 RBC 2.86 L Hgb 9.0 L Hct 27.3 L MCV 95.5 MCH 31.5 H MCHC 33.0 RDW 13.1 Plt Count 302 MPV 9.1 Neut % (Auto) 77.1 Lymph % (Auto) 14.4 [place] % (Auto) 6.1 Eos % (Auto) 1.8 Baso % (Auto) 0.3 Neut # (Auto) 7.2 Lymph # (Auto) 1.4 [place] # (Auto) 0.6 Eos # (Auto) 0.2 Baso # (Auto) 0.0 Sodium 136 132 L Potassium 4.0 3.5 Chloride 108 H 102 Carbon Dioxide 26 26 Anion Gap 6.0 7.5 BUN 9 10 D Creatinine 0.90 D 0.70 Estimated Creat Clear 113 145 Estimated GFR 74 98 Est GFR ( Amer) 89 D 119 Glucose 75 D 124 H D Calcium 7.8 L 7.0 L Total Bilirubin < 0.1 L < 0.1 L AST 134 H D 221 H ALT 167 H 202 H D Alkaline Phosphatase 135 H 149 H Lactate Dehydrogenase 424 Total Protein 4.9 L 6.1 L Albumin 2.8 L D 3.3 L D Globulin 2.1 2.8 Albumin/Globulin Ratio 1.3 1.2 LDL Cholesterol Direct 62.09 L DS: Diagnosis Discharge Diagnosis (1) delivery: Status: Acute Code(s): O60.10X0 - labor with delivery, unspecified trimester, not applicable or unspecified (2) Severe preeclampsia: Status: Acute Code(s): O14.10 - Severe pre-eclampsia, unspecified trimester Qualifiers: Trimester: third trimester Qualified Code(s): O14.13 - Severe pre-eclampsia, third trimester (3) Gestational hypertension affecting first : Status: Acute Code(s): O13.9 - Gestational [-induced] hypertension without significant proteinuria, unspecified trimester (4) Asymmetric IUGR affecting , antepartum: Status: Acute Code(s): O36.5990 - Maternal care for other known or suspected poor growth, unspecified trimester, not applicable or unspecified (5) Depression: Status: Acute Code(s): F32.A - Depression, unspecified Qualifiers: Depression Type: major depressive disorder Major depression recurrence: unspecified whether recurrent Active/Remission status: in full remission Qualified Code(s): F32.5 - Major depressive disorder, single episode, in full remission (6) Encounter for induction of labor: Status: Acute Code(s): Z34.90 - Encounter for supervision of normal , unspecified, unspecified trimester (7) Vacuum-assisted vaginal delivery: Status: Acute Code(s): Z37.9 - Outcome of delivery, unspecified Meds Home Medications and Allergies Home Medications ?Medication ?Instructions ?Recorded ?Confirmed ?Type vits no.126-ferrous fum 1 tab PO DAILY 08/11/24 02/21/25 History 28 mg iron-folic acid 800 mcg tablet (Classic ) fluoxetine 40 mg capsule 40 mg PO DAILY 09/29/24 02/21/25 History New Prescriptions to Start Prescriptions: Allergies Allergy/AdvReac Type Severity Reaction Status Date / Time Penicillins Allergy Mild Rash Verified 02/20/25 13:24 Discharge Plan Disposition Patient Disposition: Home, Self-Care Discharge Order Discharge Orders: Discharge Order (Routine); Ordered 02/26/25 Ordered By: Kana King Follow up Plan Prescriptions/Medication Reconciliation: Continued Classic 28 mg iron- 800 mcg tablet 1 tab PO DAILY fluoxetine 40 mg capsule 40 mg PO DAILY Patient Comments: TAKE 1 CAPSULE BY MOUTH ONCE DAILY Problem Reconciliation Problems Reviewed?: Yes Patient Discharge Instructions ACTIVITY: No heavy lifting DIET: continue same diet Print Language: Divehi Providers Primary Care Provider: Dorian Ramos Admit Provider: Kana King Attending Provider: Kana King
[2025-02-26] MEDS: WITCH HAZEL 40 PADS/BOX 1 EACH TP (10:52)
== END 2025-02-26 11:35 | disposition home or self-care (01) | DRG 807 ==
LOC: OBOUT 19:44 → OB 19:44
PROVIDERS: Obstetrics & Gynecology; Admitting Provider Nurse Practitioner Obstetrics & Gynecology; PCP Nurse Practitioner Family; Visit Provider Nurse Practitioner Obstetrics & Gynecology
DX: O14.14 Severe pre-eclampsia complicating childbirth (principal); Z37.0 Single live birth; Z3A.36 36 weeks gestation of pregnancy; O45.93 Premature separation of placenta, unspecified, third trimester; O36.5930 Maternal care for other known or suspected poor fetal growth, third trimester, not applicable or unspecified; O99.344 Other mental disorders complicating childbirth; F32.5 Major depressive disorder, single episode, in full remission; O70.1 Second degree perineal laceration during delivery; O76 Abnormality in fetal heart rate and rhythm complicating labor and delivery; O90.81 Anemia of the puerperium; R51.9 Headache, unspecified; O99.893 Other specified diseases and conditions complicating puerperium; Z88.0 Allergy status to penicillin; Z23 Encounter for immunization
CPT/HCPCS: 36415; 51702; 59025; 76705; 80048; 80053; 80074; 81001; 81596; 82570; 82800; 83615; 83722; 83735; 84156; 84450; 84460; 84550; 85025; 85384; 85610; 85730; 86592; 86850; 86870; 94761; J0595; J1756; J1920; J2003; J2795; J3010; J3475; J7050; J7120; J7121

== ENCOUNTER 2025-02-28 10:17 | Outpatient (CLI) | payer OTHER, SELFPAY ==
--- OUTSIDE RECORDS SUMMARY | 2025-02-01 10:37 | XMS_ITS | Encounter Summary ---
[facility] Address [address] [place] [address] Care Team Providers Care Portable Power Tool Repairer Name Role Phone Dorian Ramos APRN Primary Care Provider + [phone] Reason for Referral * Diagnostic Imaging (Routine) - Closed Specialty Diagnoses / Procedures Referred By Lion brantley Referred To Contact Radiology Diagnoses Maternal care for other known or suspected poor growth, third trimester, not applicable or unspecified , unspecified gestational age Procedures [facility] Diagnostic [place] Kimo Zuleta DO [address] [place] [address] [place] [address] Phone: tel: fax: [facility] US PER DIAG CTR [address] [place] [address] Phone: tel: Referral ID Status Reason Start Date Expiration Date Visits Re quested Visits Authorized [id number] Closed 01/18/2025 04/19/2026 1 1 Reason for Visit * Diagnostic Imaging (Routine) - Closed Specialty Diagnoses / Procedures Referred By Lion brantley Referred To Contact Radiology Diagnoses Maternal care for other known or suspected poor growth, third trimester, not applicable or unspecified , unspecified gestational age Procedures [facility] Diagnostic [place] Kimo Zuleta DO [address] [place] [address] [address] [place] [address] Phone: tel: fax: [facility] PER DIAG CTR [address] [place] [address] Phone: tel: Referral ID Status Reason Start Date Expiration Date Visits Re quested Visits Authorized [id number] Closed 01/18/2025 04/19/2026 1 1 Encounter Details Date Type Department Care Team (Latest Contact Info) Description 02/01/2025 10:37 AM EDT - 02/01/2025 11:59 PM EDT Hospital Encounter [facility] PER DIAG CTR [address] [place] [id number] Kimo Zuleta, DO [address] [facility] [address] [facility] Maternal care for other known or suspected poor growth, third trimester, not applicable or unspecified; , unspecified gestational age Discharge Disposition: Home or Self Care Social History Tobacco Use Types Packs/Day Years Used Date Smoking Tobacco: Never Smokeless Tobacco: Never Alcohol Use Standard Drinks/Week Comments Not Currently 0 (1 standard drink = 0.6 oz pur e alcohol) Abuse Screen Answer Date Recorded Unsafe at Home or Work/School Not on file Feels Threatened by Someone? Not on file 07/2023 Does Anyone Keep You from Co ntacting Others or Doint Things Outside the Home? Not on file 05/13/2023 Physical Sign of Abuse Present Not on file 1 Housing Stability Answer Date Recorded Current Living Arrangements Not on file 05/02 Potentially Unsafe Housing Conditions Not on oralia e 05/13/2023 Family and Community Support Answer Huang e Recorded Help with Day-to-Day Activities Not on file 05/13/2023 Lonely or Isolated Not on file 05/13/2023 Employment Answer Date Recorded Do you want help finding or keeping work or a filipe b? Not on file 05/13/2023 Disabilities Answer Date Recorded Concentrating, Remembering, or Making Decisions Difficulty Not on file 05/13/2023 Doing Errands Independently Difficulty Not on fi le 05/13/2023 Education Answer Date Recorded Help with school or training? Not on file Preferred Language Not on file 05/13/2023 Estimated Date of Delivery Comme nts Yes 03/15/2025 Date entered yesika or to episode creation Sex and Gender Information Value Date Recorded Sex Assigned at Not on file Legal Sex Female 3:13 PM EST Gender Identity Not on file Sexual Orientation Not on file documented as of this encounter Functional Status * Question Answer Date of Assessment Author 1. Wish to be (Past 1 Month) No 025 12:03 PM EDT Kimo Fu RN 2. Non-Specific Active Suici angelica Thoughts (Past 1 Month) No 02/01/2025 12:03 PM EDT Dalton Fu RN * Calculated C-SSRS Risk Score (Lifetime/Recent) Answer Date of Assessment Author No Risk Indicated 02/01/2025 12:03 PM EDT Kimo Fu RN * [place] Suicide Severity Rating Scale (Screener/Recent Self-Report) Question Answer Date of Assessment Author 6. Suicidal Behavior (Lifetime) No 12:03 PM EDT Kimo Fu RN documented as of this encounter Medications at Time of Discharge FLUoxetine (PROzac) 40 MG capsule Take 1 capsule by mouth Daily. Vit-Fe Fumarate-FA ( VITAMIN PO) Take 1 tablet by mouth Daily. documented as of this encounter Plan of Treatment Not on file documented as of this encounter Procedures Procedure Name Priority Date/Time Associated Diagnosis Comments [facility] Routine 02/01/2025 11:53 AM EDT Maternal care for other known or suspected poor growth, third trimester, not applicable or unspecified , unspecified gestational age documented in this encounter Results * [facility] (02/01/2025 11:53 AM EDT) Anatomical Region Laterality Modality Ultrasound 02/01/2025 11:1 1 AM EDT Narrative 02/01/2025 11:57 AM EDT PAT NAME: CAROLYN BORREGO MED REC#: [id number] DA: [id number] PAT GEND: F PAT TYPE: O EXAM HUANG: [id number] REF PHYS KIMO ZULETA Comparison Studies There are no relevant prior studies to which this study is being compared Patient Status Outpatient Indication ======== Small for gestational age Maternal Assessment Height 162 cm Height (ft) 5 ft Height (in) 4 in Weight 76 kg Weight (lb) 168 lb BMI 28.96 kg/m Method ======= Transabdominal ultrasound examination. View: Adequate view ========= Riggins . Number of fetuses: 1 Dating ====== Method of dating: based on stated ABILIO GA by prior assessment 34 w + 0 d ABILIO by prior assessment: 03/15/2025 Ultrasound examination on: 02/01/2025 GA by U/S based upon: AC, BPD, Femur, HC GA by U/S 32 w + 6 d ABILIO by U/S: 03/23/2025 Assigned: based on stated ABILIO, selected on 02/01/2025 Assigned GA 34 w + 0 d Assigned ABILIO: 03/15/2025 length 280 d Biometry Standard BPD 84.5 mm 34w 0d 48% Hadlock OFD 103.1 mm 33w 4d 42% Farzana HC 309.4 mm 34w 4d 27% Hadlock Cerebellum tr 48.6 mm 36w 1d 72% Hill AC 268.7 mm 31w 0d 1% Hadlock Femur 61.4 mm 31w 6d 4% Hadlock Humerus 54.7 mm 31w 6d 9% Farzana HC / AC 1.15 EFW 1,849 g 31w 3d 5% Hadlock EFW (lb) 4 lb EFW (oz) 1 oz EFW by: Hadlock ([id number]-EQ-FD-FL) Extended Tibia 49.5 mm 29w 5d <1% Farzana Fibula 50.6 mm 30w 6d 21% Farzana Foot 64.4 mm 10% Chitty Radius 43.2 mm 30w 1d 26% Farzana Ulna 47.3 mm 30w 0d <1% Farzana Cav. septi pel. tr 9.0 mm Automotive Shop Foreman 5.8 mm CM 4.6 mm 1% Nicolaides Head / Face / Neck Cephalic index 0.82 66% Nicolaides Extremities / Bony Struc FL / BPD 0.73 FL / HC 0.20 FL / AC 0.23 Other Structures FHR 168 bpm General Evaluation Cardiac activity present. FHR 168 bpm. movements present. Presentation cephalic. Placenta Placental site: posterior. Umbilical cord Cord vessels: 3 vessel cord. Amniotic fluid Amount of AF: normal. MVP 4.8 cm. DARLENE 13.2 cm. Q1 4.8 cm, Q2 2.4 cm, Q3 2.0 cm, Q4 4.0 cm. Anatomy Cranium: Appears normal Midline falx: Appears normal Cavum septi pellucidi: Appears normal Cerebellum: Appears normal Cisterna magna: Appears normal Head / Neck Rt lateral ventricle: Appears normal Lt lateral ventricle: Appears normal Rt choroid plexus: Appears normal Lt choroid plexus: Appears normal Vermis: Appears normal Neck: Appears normal Lips: Appear normal Profile: Appears normal Nose: Appears normal Face Nose: Due to position Palate: Appears normal Orbits: Appears normal Lens: Normal 4-chamber view: Appears normal RVOT view: Appears normal LVOT view: Appears normal Heart / Thorax Aortic arch view: Appears normal Ductal arch view: Appears normal SVC: normal IVC: normal 3-vessel view: Appears normal 0-rulnve-wojstac view: Appears normal Rt lung: Appears normal Lt lung: normal Diaphragm: Appears normal Diaphragm: Intact Cord insertion: Appears normal Stomach: Appears normal Bladder: Appears normal Abdomen Rt kidney: normal Lt kidney: normal Liver: normal Small bowel: normal Large bowel: normal Cervical spine: suboptimal Thoracic spine: suboptimal Lumbar spine: suboptimal Sacral spine: suboptimal Spine Sacral spine: Due to position Arms: Appears normal Legs: Appears normal Rt upper arm: Appears normal Rt forearm: Appears normal Rt hand: Appears normal Lt upper arm: Appears normal Lt forearm: Appears normal Lt hand: Appears normal Rt upper leg: Appears normal Rt lower leg: Appears normal Rt foot: Appears normal Lt upper leg: Appears normal Lt lower leg: Appears normal Lt foot: Appears normal Wants to know gender: yes Doppler Arterial Umbilical A PI 1.06 83% Shayla Umbilical A RI 0.67 83% Shayla Umbilical A PS -52.41 cm/s Umbilical A ED -18.97 cm/s Umbilical A TAmax -34.91 cm/s Umbilical A MD -15.37 cm/s Umbilical A S / D 3.00 75% Shayla Umbilical A HR 155 bpm Biophysical Profile 2: breathing movements 2: Gross body movements 2: tone 2: Amniotic fluid volume 8/8 Biophysical profile score Maternal Structures Uterus / Cervix Cervix: Visualized Approach: Transabdominal Cervical length 38.5 mm Ovaries / Tubes / Adnexa Rt ovary: Visualized Lt ovary: Visualized Consultation / Office Visit Office note to follow Impression ========= Size less than dates consistent with IUGR No anomalies were identified. Amniotic fluid volume is normal. Umbilical artery S/D ratio is normal. BPP 8/8 today. Patient counseled re movement. Recommendation Patient sent to L&D for evaluation of elevated BP. If patient discharged: Recommend twice weekly testing at local OB office. Recommend continued bed rest. We recommend repeat evaluation for growth and Doppler exam at [facility] in 2 weeks. Follow up appointment scheduled here in 4 weeks. Coding ====== Description: 23065-11 Detailed Ultrasound Description: 77378-89 BPP without NST Description: 82093-08 Doppler Umbilical Artery Salvager Helper: Lucy Pereyra RDMS Physician: Deric Biswas MD, FACOG Electronically signed by: Deric Biswas MD, FACOG at: 11:57 Procedure Note Troy Biswas MD - 02/01/2025 PAT NAME: CAROLYN BORREGO MED REC#: [id number] DA: [id number] PAT GEND: F PAT TYPE: O EXAM HUANG: [id number] REF PHYS KIMO ZULETA Comparison Studies There are no relevant prior studies to which this study is beingcompared Patient Status Outpatient Indication ======== Small for gestational age Maternal Assessment [id number] cm Height (ft)5 ft Height (in)4 in Kxhsnw49 kg Weight (lb)168 lb BMI28.96 kg/m Method ======= Transabdominal ultrasound examination. View: Adequate view ========= Riggins . Number of fetuses: 1 Dating ====== Method of dating:based on stated ABILIO GA by prior tilpigzodr62 w + 0 d ABILIO by prior assessment:03/15/2025 Ultrasound examination on:02/01/2025 GA by U/S based upon:AC, BPD, Femur, HC GA by U/S32 w + 6 d ABILIO by U/S:03/23/2025 Assigned:based on stated ABILIO, selected on 02/01/2025 Assigned GA34 w + 0 d Assigned ABILIO:03/15/2025 [id number] d Biometry Standard BPD84.5 mm 34w 0d 48% Hadlock LFT300.1 mm 33w 4d 42% Farzana HC309.4 mm 34w 4d 27% Hadlock Cerebellum tr48.6 mm 36w 1d 72% Hill AC268.7 mm 31w 0d 1% Hadlock Femur61.4 mm 31w 6d 4% Hadlock Huglgkg95.7 mm 31w 6d 9% Farzana HC / AC1.15 EFW1,849 g 31w 3d 5% Hadlock EFW (lb)4 lb EFW (oz)1 oz EFW by:Hadlock (EML-ZV-LW-FL) Extended Tibia49.5 mm 29w 5d <1% Farzana Adawwv34.6 mm 30w 6d 21% Farzana Foot64.4 mm 10% Chitty Qonagg31.2 mm 30w 1d 26% Farzana Ulna47.3 mm 30w 0d <1% Farzana Cav. septi pel. tr9.0 mm Vp5.8 mm CM4.6 mm 1% Nicolaides Head / Face / Neck Cephalic index0.82 66% Nicolaides Extremities / Bony Struc FL / BPD0.73 FL / HC0.20 FL / AC0.23 Other Structures KKE906 bpm General Evaluation Cardiac activity present. FHR 168 bpm. movements present. Presentation cephalic. Placenta Placental site: posterior. Umbilical cord Cord vessels: 3 vessel cord. Amniotic fluid Amount of AF: normal. MVP 4.8 cm. DARLENE 13.2 cm. Q1 4.8 cm,Q2 2.4 cm, Q3 2.0 cm, Q4 4.0 cm. Anatomy Cranium:Appears normal Midline falx:Appears normal Cavum septi pellucidi:Appears normal Cerebellum:Appears normal Cisterna magna:Appears normal Head / Neck Rt lateral ventricle:Appears normal Lt lateral ventricle:Appears normal Rt choroid plexus:Appears normal Lt choroid plexus:Appears normal Vermis:Appears normal Neck:Appears normal Lips:Appear normal Profile:Appears normal Nose:Appears normal Face Nose:Due to position Palate:Appears normal Orbits:Appears normal Lens:Normal 4-chamber view:Appears normal RVOT view:Appears normal LVOT view:Appears normal Heart / Thorax Aortic arch view:Appears normal Ductal arch view:Appears normal SVC:normal IVC:normal 3-vessel view:Appears normal 5-mbhsgf-jbxsxkc view:Appears normal Rt lung:Appears normal Lt lung:normal Diaphragm:Appears normal Diaphragm:Intact Cord insertion:Appears normal Stomach:Appears normal Bladder:Appears normal Abdomen Rt kidney:normal Lt kidney:normal Liver:normal Small bowel:normal Large bowel:normal Cervical spine:suboptimal Thoracic spine:suboptimal Lumbar spine:suboptimal Sacral spine:suboptimal Spine Sacral spine:Due to position Arms:Appears normal Legs:Appears normal Rt upper arm:Appears normal Rt forearm:Appears normal Rt hand:Appears normal Lt upper arm:Appears normal Lt forearm:Appears normal Lt hand:Appears normal Rt upper leg:Appears normal Rt lower leg:Appears normal Rt foot:Appears normal Lt upper leg:Appears normal Lt lower leg:Appears normal Lt foot:Appears normal Wants to know gender:yes Doppler Arterial Umbilical A PI1.06 83% Shayla Umbilical A RI0.67 83% Shayla Umbilical A PS-52.41 cm/s Umbilical A ED-18.97 cm/s Umbilical A TAmax-34.91 cm/s Umbilical A MD-15.37 cm/s Umbilical A S / D3.00 75% Shayla Umbilical A HR155 bpm Biophysical Profile 2: breathing movements 2: Gross body movements 2: tone 2: Amniotic fluid volume 8/8 Biophysical profile score Maternal Structures Uterus / Cervix Cervix:Visualized Approach:Transabdominal Cervical .5 mm Ovaries / Tubes / Adnexa Rt ovary:Visualized Lt ovary:Visualized Consultation / Office Visit Office note to follow Impression ========= Size less than dates consistent with IUGR No anomalies were identified. Amniotic fluid volume is normal. Umbilical artery S/D ratio is normal. BPP 8/8 today. Patient counseled re movement. Recommendation Patient sent to L&D for evaluation of elevated BP. If patient discharged: Recommend twice weekly testing at local OB office. Recommend continued bed rest. We recommend repeat evaluation for growth and Doppler exam at [facility] in2 weeks. Follow up appointment scheduled here in 4 weeks. Coding ====== Description:82643-10 Detailed Ultrasound Description:20476-01 BPP without NST Description:24472-55 Doppler Umbilical Artery Salvager Helper: Lucy Pereyra RDMS Physician: Deric Biswas MD, FACOG Electronically signed by: Deric Biswas MD, FACOG at: 11:57 us Kimo Zuleta DO IMG US ORDERABLES Final Res ult documented in this encounter Visit Diagnoses Diagnosis Maternal care for other known or suspected poor growth, third trimester, not applicable or unspecified , unspecified gestational age documented in this encounter Care Teams Portable Power Tool Repairer Relationship Specialty Start Date End Date Dorian Ramos SHARI [address] [place] [address] PCP - General Family Medicine 07/24/20 documented as of this encounter
--- OUTSIDE RECORDS SUMMARY | 2025-02-01 11:00 | XMS_ITS | Encounter Summary ---
Author Organization [facility] Address [address] [place] [address] Care Team Providers Care Financial Aid Officer Name Role Phone Dorian Ramos APRN Primary Care Provider + [phone] Reason for Referral * Diagnostic Imaging (Routine) - Authorized Specialty Diagnoses / Procedures Referred By Contac t Referred To Contact Radiology Diagnoses IUGR (intrauterine growth retardation) affecting mother, third trimester, not applicable or unspecified fetus , unspecified gestational age Procedures [facility] Troy Biswas MD [address] [facility] [address] [place] [address] Phone: tel: fax: Referral ID Status Reason Start Date Expiration Date V isits Requested Visits Authorized [id number] Authorized 02/01/2025 05/03/2026 1 1 Reason for Visit * Reason Comments IUGR Encounter Details Date Type Department Care Team (Late st Contact Info) Description 02/01/2025 11:00 AM EDT Office Visit [facility] MEDICINE [address] [facility] [address] [place] [address] Troy Biswas MD [address] [facility] [address] [place], [place] [id number] IUGR (intrauterine growth retardation) affecting mother, third [...] pressures today. Review of her records from [place] and indicate that these are clearly elevated [...] twice weekly testing with her doctors in [place].We will rescan the patient again in 2 [...] pressures today. Review of her records from [place] and indicate that these are clearly elevated [...] twice weekly testing with her doctors in [place].We will rescan the patient again in 2 weeks time to assess growth and wellbeing as well as torepeat umbilical artery Dopplers. We would recommend delivery at 37 weeks gestation unless other complications such as significant preeclampsia arise. Patient was counseled extensively regarding movement will contact her provider immediately ifshe notices any decreased movement. Orders: - POC Protein, Urine, Qualitative, Dipstick - [facility] [place]; Future 2. , unspecified gestational age - [facility] [place]; Future Follow Up Return in about 2 [...] or CVS. Troy Biswas MD Maternal Medicine, [facility] [place] 02/01/2025 documented in this encounter Plan of Treatment Scheduled Orders Name Type Priority Associated Diagnoses Orde r Schedule [facility] Imaging Routine IUGR (intrauterine growth [...] AM EDT) Protein, POC Trace(A) Negative mg/dL [facility] Lot Number [id number] [facility] Expiration Date [facility] Urine 02/01/2025 11:2 3 AM EDT us Troy Biswas MD POINT OF CARE TEST ORDERAB LES Final Result [facility]
[address] [place] [address], documented in this encounter Visit Diagnoses Diagnosis IUGR (intrauterine growth retardation) affecting mother, third trimester, not applicable or unspecified fetus- Primary , unspecified gestational age documented in this encounter Care Teams Financial Aid Officer Relationship Specialty Start Date End Date Dorian Ramos APRN [address] [place] [address] PCP - General Family Medicine 07/24/20 documented as of this encounter
--- OUTSIDE RECORDS SUMMARY | 2025-02-01 11:44 | XMS_ITS | Encounter Summary ---
[facility] Address [address] [place] [address] Care Team Providers Care Supervisor Silvering Department Name Role Phone Dorian Ramos SHARI Primary Care Provider + [phone] Reason for Visit * Reason Comments Elevated Blood Pressure Encounter Details Date Type Department Care Team (Late st Contact Info) Description 02/01/2025 11:44 AM EDT - 02/01/2025 1:20 PM EDT Hospital Encounter [facility] OBSTETRIC EMERGENCY DEPARTMENT [address] [place] [address] Taiwo Snider, DO [address] [facility] [address] [place] [address] Discharge Disposition: Home or Self Care Social [...] Indicated 02/01/2025 12:03 PM EDT Vandana Fu, SUHAS * [place] Suicide Severity Rating Scale (Screener/Recent Self-Report) Question [...] sent through Care Everywhere. * Movement Counts ([place]) * High Blood Pressure and (Pre-Eclampsia and Eclampsia): What to Know ([place]) documented in this encounter Medications at Time [...] note were not included. [facility] Obstetric History and Physical Referring Provider: Vandana [...] IUPC: Resting Tone: Resting Tone by IUPC: [place] Units: Laboratory Results: Lab Results (last 24 hours) Procedure Component Value Units Date/Time Preeclampsia Panel [[id number]] (Abnormal) Collected: 02/01/251216 Specimen: Blood Updated: 02/01/25 1303 Alkaline Phosphatase 148 U/L ALT (SGPT) 18 U/L AST (SGOT) 28 U/L Creatinine 0.75 mg/dL Total Bilirubin <0.2 mg/dL LDH 218 U/L Uric Acid 5.3 mg/dL Protein / Creatinine Ratio, Urine - Urine, Clean Catch [[id number]] Collected: 02/01/25 1223 Specimen: Urine, Clean Catch Updated: 02/01/25 1228 CBC (No Diff) [[id number]] (Abnormal) Collected: 02/01/25 121 Specimen: Blood Updated: [...] 200.0 mg/G Crea 02/01/2025 6:57 PM EDT [facility] Creatinine, Urine 158.9 mg/dL 02/01/2025 6:57 PM EDT [facility] Total Protein, Urine 16.9 mg/dL 02/01/2025 6:57 PM EDT [facility] Urine Urine specimen obtained by clean catch procedure / Unknown Collection / Unknown 02/01/2025 12:23 PM EDT 02/01/2025 12:28 PM EDT Taiwo Snider DO URINE ORDERABLES Final Resu lt [facility]
[address] [place] [address], * (ABNORMAL) Preeclampsia Panel (02/01/2025 12:17 PM EDT) Alkaline Phosphatase 148(H) 39 - 117 U/L 02/01/2025 1:03 PM EDT [facility] ALT (SGPT) 18 1 - 33 U/L 02/01/2025 1:03 PM EDT [facility] AST (SGOT) 28 1 - 32 U/L 02/01/2025 1:03 PM EDT [facility] Creatinine 0.75 0.57 - 1.00 mg/dL 02/01/2025 1:03 PM EDT [facility] Total Bilirubin <0.2 0.0 - 1.2 mg/dL 02/01/2025 1:03 PM EDT [facility] LDH 218(H) 135 - 214 U/L 02/01/2025 1:03 PM EDT [facility] Uric Acid 5.3 2.4 - 5.7 mg/dL 02/01/2025 1:03 PM EDT [facility] Blood Line / Unknown 02/01/2025 12 :17 PM EDT 02/01/2025 12:21 PM EDT us Taiwo Snider DO LAB BLOOD ORDERABLES Final Result [facility]
[address] [place] [address], [place] [phone] * (ABNORMAL) CBC (No Diff) (02/01/2025 12:17 PM EDT) WBC 7.99 3.40 - 10.80 10*3/mm3 02/01/2025 12:25 PM EDT [facility] RBC 3.83 3.77 - 5.28 10*6/mm3 02/01/2025 12:25 PM EDT [facility] Hemoglobin 12.2 12.0 - 15.9 g/dL 02/01/2025 12:25 PM EDT [facility] Hematocrit 34.8 34.0 - 46.6 % 02/01/2025 12:25 PM EDT [facility] MCV 90.9 79.0 - 97.0 fL 02/01/2025 12:25 PM EDT [facility] MCH 31.9 26.6 - 33.0 pg 02/01/2025 12:25 PM EDT [facility] MCHC 35.1 31.5 - 35.7 g/dL 02/01/2025 12:25 PM EDT [facility] RDW 11.9(L) 12.3 - 15.4 % 02/01/2025 12:25 PM EDT [facility] RDW-SD 39.1 37.0 - 54.0 fl 02/01/2025 12:25 PM EDT [facility] MPV 9.7 6.0 - 12.0 fL 02/01/2025 12:25 PM EDT [facility] Platelets 276 140 - 450 10*3/mm3 02/01/2025 12:25 PM EDT [facility] Blood Line / Unknown 02/01/2025 12 :17 PM EDT 02/01/2025 12:21 PM EDT Taiwo Snider DO LAB BLOOD ORDERABLES Final Result [facility]
[address] [place] [address], documented in this encounter Visit Diagnoses Not on filedocumented in this encounter Care Teams Supervisor Silvering Department Relationship Specialty Start Date End Date Dorian Ramos APRN [address] [place] [address] PCP - General Family Medicine 07/24/20 documented as of this encounter
--- OUTSIDE RECORDS SUMMARY | 2025-02-28 10:24 | XMS_ITS | Encounter Summary ---
Author Organization [facility] Address [address] [place] [address] Care Team Providers Care 7Th Grade Teacher Name Role Phone Dorian Ramos SHARI Primary Care Provider [phone] Encounter Details Date Type Department Care Team [...] 12:03 PM EDT Vandana Fu RN * [place] Suicide Severity Rating Scale (Screener/Recent Self-Report) Question Answer Date of Assessment Author 6. Suicidal Behavior (Lifetime) No 12:03 PM EDT Vandana Fu RN documented as of this encounter Plan of Treatment Not on file documented as of this encounter Visit Diagnoses Not on filedocumented in this encounter Care Teams 7Th Grade Teacher Relationship Specialty Start Date End Date Dorian Ramos APRN [address] [place] [address] [place] [id number] PCP - General Family Medicine 07/24/20 documented as of this encounter
--- OUTSIDE RECORDS SUMMARY | 2025-02-28 10:24 | XMS_ITS | Clinical Summary ---
Author Organization [facility] Address [address] [place] [address] Care Team Providers Care International Editorial Producer Name Role Phone Selwynajay Dorian MCCARTHY Primary Care Provider + [phone] Allergies Active Allergy Reactions Criticality Noted Date [...] pressures today. Review of her records from [place] and indicate that these are clearly elevated [...] twice weekly testing with her doctors in [place]. We will rescan the patient again in [...] - 02/01/2025 1:20 PM EDT Hospital Encounter [facility] OBSTETRIC EMERGENCY DEPARTMENT [address] [place] [phone] Taiwo Snider, DO Discharge Disposition: Home or Self Care 02/01/2025 11:00 AM EDT Office Visit [facility] MATERNAL MEDICINE [address] [facility] [address] [place] [phone] Troy Biswas MD IUGR (intrauterine growth retardation) affecting mother, third trimester, not applicable or unspecified fetus (Primary Dx); , unspecified gestational age 0702/01/2025 10:37 AM EDT - 02/01/2025 11:59 PM EDT Hospital Encounter [facility] US PER DIAG CTR [address] [place] [address] Kimo Zuleta DO Maternal care [...] (NO DIFF) STAT 02/01/2025 12:17 PM EDT [facility] Routine 02/01/2025 11:53 AM [...] 200.0 mg/G Crea 02/01/2025 6:57 PM EDT [facility] Creatinine, Urine 158.9 mg/dL 02/01/2025 6:57 PM EDT [facility] Total Protein, Urine 16.9 mg/dL 02/01/2025 6:57 PM EDT [facility] Urine Urine specimen obtained by clean catch procedure / Unknown Collection / Unknown 02/01/2025 12:23 PM EDT 02/01/2025 12:28 PM EDT Taiwo Snider DO URINE ORDERABLES Final Resu lt [facility]
[address] [place] [address], * (ABNORMAL) Preeclampsia Panel (02/01/2025 12:17 PM EDT) Alkaline Phosphatase 148(H) 39 - 117 U/L 02/01/2025 1:03 PM EDT [facility] ALT (SGPT) 18 1 - 33 U/L 02/01/2025 1:03 PM EDT [facility] AST (SGOT) 28 1 - 32 U/L 02/01/2025 1:03 PM EDT [facility] Creatinine 0.75 0.57 - 1.00 mg/dL 02/01/2025 1:03 PM EDT [facility] Total Bilirubin <0.2 0.0 - 1.2 mg/dL 02/01/2025 1:03 PM EDT [facility] LDH 218(H) 135 - 214 U/L 02/01/2025 1:03 PM EDT [facility] Uric Acid 5.3 2.4 - 5.7 mg/dL 02/01/2025 1:03 PM EDT [facility] Blood Line / Unknown 02/01/2025 12 :17 PM EDT 02/01/2025 12:21 PM EDT Taiwo Snider DO LAB BLOOD ORDERABLES Final Result [facility]
[address] [place] [address], * (ABNORMAL) CBC (No Diff) (02/01/2025 12:17 PM EDT) WBC 7.99 3.40 - 10.80 10*3/mm3 02/01/2025 12:25 PM EDT [facility] RBC 3.83 3.77 - 5.28 10*6/mm3 02/01/2025 12:25 PM EDT [facility] Hemoglobin 12.2 12.0 - 15.9 g/dL 02/01/2025 12:25 PM EDT [facility] Hematocrit 34.8 34.0 - 46.6 % 02/01/2025 12:25 PM EDT [facility] MCV 90.9 79.0 - 97.0 fL 02/01/2025 12:25 PM EDT [facility] MCH 31.9 26.6 - 33.0 pg 02/01/2025 12:25 PM EDT [facility] MCHC 35.1 31.5 - 35.7 g/dL 02/01/2025 12:25 PM EDT [facility] RDW 11.9(L) 12.3 - 15.4 % 02/01/2025 12:25 PM EDT [facility] RDW-SD 39.1 37.0 - 54.0 fl 02/01/2025 12:25 PM EDT [facility] MPV 9.7 6.0 - 12.0 fL 02/01/2025 12:25 PM EDT [facility] Platelets 276 140 - 450 10*3/mm3 02/01/2025 12:25 PM EDT [facility] Blood Line / Unknown 02/01/2025 12 :17 PM EDT 02/01/2025 12:21 PM EDT us Taiwo Snider DO LAB BLOOD ORDERABLES Final Result [facility]
[address] [place] [address], * Formerly [facility] (02/01/2025 11:53 AM EDT) Anatomical Region Laterality Modality Ultrasound 02/01/2025 11:1 1 AM EDT Narrative 02/01/2025 11:57 AM EDT PAT NAME: CAROLYN BORREGO MED REC#: [id number] DA: [id number] PAT GEND: F PAT TYPE: O EXAM HUANG: [id number] REF PHYS KIMO ZULETA Comparison Studies There [...] EFW (oz) 1 oz EFW by: Hadlock ([id number]) Extended Tibia 49.5 mm 29w 5d <1% Farzana Fibula 50.6 mm 30w 6d 21% Farzana Foot 64.4 mm 10% Chitty Radius 43.2 mm 30w 1d 26% Farzana Ulna 47.3 mm 30w 0d <1% Farzana Cav. septi pel. tr 9.0 mm Automation Machine Builder 5.8 mm CM 4.6 mm 1% Nicolaides [...] normal IVC: normal 3-vessel view: Appears normal 5-wrhgac-nzsdlgh view: Appears normal Rt lung: Appears normal [...] evaluation for growth and Doppler exam at [facility] in 2 weeks. Follow up appointment scheduled here in 4 weeks. Coding ====== Description: 38801-49 Detailed Ultrasound Description: 18406-11 BPP without NST Description: 84545-03 Doppler Umbilical Artery Bath Solution Maker: Lucy Pereyra RDMS Physician: Deric Biswas MD, FACOG Electronically signed by: Deric Biswas MD, FACOG at: 11:57 Procedure Note Troy Biswas MD - 02/01/2025 PAT NAME: CAROLYN BORREGO MED REC#: [id number] DA: [id number] PAT GEND: F PAT TYPE: O EXAM HUANG: [id number] REF PHYS KIMO ZULETA Comparison Studies There are no relevant prior studies to which this study is beingcompared Patient Status Outpatient Indication ======== Small for gestational age Maternal Assessment [id number] cm Height (ft)5 ft Height (in)4 in Njbdxf93 kg Weight (lb)168 lb BMI28.96 kg/m Method ======= Transabdominal ultrasound examination. View: Adequate view ========= Riggins . Number of fetuses: 1 Dating ====== Method of dating:based on stated ABILIO GA by prior [id number] w + 0 d ABILIO by prior assessment:03/15/2025 Ultrasound examination on:02/01/2025 GA by U/S based upon:AC, BPD, Femur, HC GA by U/S32 w + 6 d ABILIO by U/S:03/23/2025 Assigned:based on stated ABILIO, selected on 02/01/2025 Assigned GA34 w + 0 d Assigned ABILIO:03/15/2025 vyubhe148 d Biometry Standard BPD84.5 mm 34w 0d 48% Hadlock MOT084.1 mm 33w 4d 42% Farzana HC309.4 mm 34w 4d 27% Hadlock Cerebellum tr48.6 mm 36w 1d 72% Hill AC268.7 mm 31w 0d 1% Hadlock Femur61.4 mm 31w 6d 4% Hadlock Hgzvkqc91.7 mm 31w 6d 9% Farzana HC / AC1.15 EFW1,849 g 31w 3d 5% Hadlock EFW (lb)4 lb EFW (oz)1 oz EFW by:Hadlock ([id number]) Extended Tibia49.5 mm 29w 5d <1% Farzana Qsffkf64.6 mm 30w 6d 21% Farzana Foot64.4 mm 10% Chitty Wkscxn67.2 mm 30w 1d 26% Farzana Ulna47.3 mm 30w 0d <1% Farzana Cav. septi pel. tr9.0 mm Vp5.8 mm CM4.6 mm 1% Nicolaides Head / Face / Neck Cephalic index0.82 66% Nicolaides Extremities / Bony Struc FL / BPD0.73 FL / HC0.20 FL / AC0.23 Other Structures DAE322 bpm General Evaluation Cardiac activity present. FHR [...] view:Appears normal SVC:normal IVC:normal 3-vessel view:Appears normal 4-zqvibu-hkvcubm view:Appears normal Rt lung:Appears normal Lt lung:normal [...] Structures Uterus / Cervix Cervix:Visualized Approach:Transabdominal Cervical jhslur52.5 mm Ovaries / Tubes / Adnexa Rt [...] evaluation for growth and Doppler exam at [facility] in2 weeks. Follow up appointment scheduled here in 4 weeks. Coding ====== Description:55315-49 Detailed Ultrasound Description:72389-04 BPP without NST Description:15224-19 Doppler Umbilical Artery Bath Solution Maker: Lucy Pereyra RDMS Physician: Deric Biswas MD, FACOG Electronically signed by: Deric Biswas MD, FACOG at: 11:57 us Kimo Zuleta DO IMG US ORDERABLES Final Res ult * (ABNORMAL) POC Protein, Urine, Qualitative, Dipstick (02/01/2025 11:23 AM EDT) Protein, POC Trace(A) Negative mg/dL [facility] Lot Number [id number] [facility] Expiration Date [facility] Urine 02/01/2025 11:2 3 AM EDT us Troy Biswas MD POINT OF CARE TEST ORDERAB LES Final Result [facility]
[address] [place] [address], [place] [phone] from Last 3 Months Insurance Care Teams International Editorial Producer Relationship Specialty Start Date End Date Dorian Ramos APRN [address] [place] [address] PCP - General Family Medicine 07/24/20
--- OUTSIDE RECORDS SUMMARY | 2025-02-28 10:24 | XMS_ITS | Clinical Summary ---
Author Organization [facility] Address [address] [place] [address] Care Team Providers Care Salesperson Terrazzo Tiles Name Role Phone Pcp, No Primary Care [...] Tdap) 2013 10/03/1998, 10/04/1995 UKY-Pap Smear 2015 [id number] Vaccine (3 - 2023- season) 2024 08/04/2021, [...] to complete this topic Insurance Care Teams Salesperson Terrazzo Tiles Relationship Specialty Start Date End Date [address] [place] [address] PCP - General Family Medicine 11/20/21
[2025-02-28 10:48] LABS: Hematocrit 30.4 % (37.0-47.0); Hemoglobin 9.7 g/dL (12.2-16.2); Immature Granulocytes % 0.5 %; Mean Corpuscular HGB Conc 31.9 g/dL (31.8-35.4); Mean Corpuscular Hemoglobin 31.0 pg (27.0-31.2); Mean Corpuscular Volume 97.1 fl (81-99); Nucleated Red Blood Cells % 0 %; Platelet Count 367 K/mm3 (142-424); Red Blood Count 3.13 M/mm3 (4.20-5.40); Red Cell Distribution Width-SD 47.3 fL; White Blood Count 10.6 K/mm3 (4.8-10.8)
[2025-02-28 11:20] LABS: Chloride 105 mmol/L (98-107)
[2025-02-28 11:21] LABS: Albumin Level 3.1 g/dl (3.5-5.0); Potassium 4.5 mmoL/L (3.5-5.1); Sodium 135 mmol/L (136-145)
[2025-02-28 11:23] LABS: Blood Urea Nitrogen 12 mg/dl (7-17); Creatinine,Serum 0.90 mg/dl (0.52-1.04); Estimated Glomerular Filt Rate 74 ml/min (>60); GFR (African American) 89 ML/MIN (>60)
[2025-02-28 11:24] LABS: Alanine Aminotransferase 134 U/L (12-78); Albumin/Globulin Ratio 1.0 (1.1-1.8); Alkaline Phosphatase 143 U/L (38-126); Anion Gap 9.5 mEq/L (5-15); Aspartate Amino Transferase 71 U/L (14-36); Bilirubin,Total 0.3 mg/dl (0.2-1.3); Calcium 9.3 mg/dl (8.4-10.2); Carbon Dioxide 25 mmol/L (22.0-30.0); Globulin 3.2 g/dL (1.3-3.2); Glucose 122 mg/dl (74-100); Total Protein,Serum 6.3 g/dl (6.3-8.2)
== END 2025-02-28 23:59 | disposition home or self-care (01) ==
LOC: LAB 10:19
PROVIDERS: PCP Nurse Practitioner Family; Visit Provider Obstetrics & Gynecology
DX: O14.10 Severe pre-eclampsia, unspecified trimester (principal); O99.891 Other specified diseases and conditions complicating pregnancy; R74.01 Elevation of levels of liver transaminase levels; Z3A.00 Weeks of gestation of pregnancy not specified
CPT/HCPCS: 36415; 80053; 83615; 85025